=== PATIENT | female | born 1960 | race Caucasian/White ===

== ENCOUNTER → 2019-05-04 11:05 | Outpatient (CLI) | payer OTHER, SELFPAY ==
--- NOTE | ~2019-05-04 | XR_ITS ---
XR foot RT min 3V DATE: 05/04/2019 11:20 INDICATION: Right foot fracture; initial encounter TECHNIQUE: 4 views COMPARISON: None FINDINGS: Status post bunionectomy. There is a linear oblique fracture through the mid to distal shaft of the fifth metatarsal bone, term inating at the lateral neck distally, with approximately one cortical width medial displacement. This appears quite recent, without evidence of any new bone formation yet. No other recent fracture or dislocation. No periosteal reaction or bone destruction. Mild plantar and posterior calcaneal enthesopathy. IMPRESSION: Mid to distal fifth metatarsal shaft recent fracture Reviewed, dictated and finalized at location B. PRODUCTION COOK
== END ==
PROVIDERS: PCP Family Medicine; Visit Provider Family Medicine
DX: S92.351A Displaced fracture of fifth metatarsal bone, right foot, initial encounter for closed fracture (principal); X58.XXXA Exposure to other specified factors, initial encounter
CPT/HCPCS: 73630

== ENCOUNTER → 2019-05-18 09:21 | Outpatient (CLI) | payer OTHER, SELFPAY ==
--- NOTE | ~2019-05-18 | XR_ITS ---
EXAMINATION: XR foot RT min 3V DATE: 05/18/2019 09:33 INDICATION: Displaced fracture of fifth metatarsal bone. TECHNIQUE: 4 views of right foot were obtained. COMPARISON: Right foot radiographs 05/04/2019 FINDINGS: There are changes of bunionectomy with single screw in first metatarsal. There is an obliqu e fracture of diaphysis and neck of fifth metatarsal. The distal fracture fragment demonstrates 2 mm dorsomedial displacement. There is no visible callus. There is mild osteoarthritis of first metatarso phalangeal joint and talonavicular joint. There are enthesophytes at the posterior and plantar aspect s of calcaneal tuberosity. IMPRESSION: 1. Unchanged oblique fracture of fifth metatarsal. Reviewed, dictated and finalized at location A. NICIAN HELPER INSTRUMENT
== END ==
PROVIDERS: PCP Family Medicine; Visit Provider Family Medicine
DX: S92.353D Displaced fracture of fifth metatarsal bone, unspecified foot, subsequent encounter for fracture with routine healing (principal); X58.XXXD Exposure to other specified factors, subsequent encounter
CPT/HCPCS: 73630

== ENCOUNTER → 2019-06-08 10:16 | Outpatient (CLI) | payer OTHER, SELFPAY ==
--- NOTE | ~2019-06-08 | XR_ITS ---
XR foot RT min 3V 06/08/2019 10:30 Indication: Displaced fracture fifth metatarsal Procedure: 4 views right foot Comparison: Comparison to multiple prior studies sequentially, with oldest reviewed study dated 2019 Findings: There is a healing oblique fracture of the fifth metatarsal with evidence for developing ca llus formation. The fracture margins are less distinct than on prior examination. No significant sylvester ge to alignment. There are changes of right first metatarsal bunionectomy. There are degenerative shaquille caneal enthesophytes. Mild osteoarthritis first metatarsal phalangeal joint. Impression: 1: Stable alignment of healing oblique right fifth metatarsal fracture. Reviewed, dictated and finalized at location A. Impression: 1: Stable alignment of healing oblique right fifth metatarsal fracture.
== END ==
PROVIDERS: PCP Family Medicine; Visit Provider Family Medicine
DX: S92.353D Displaced fracture of fifth metatarsal bone, unspecified foot, subsequent encounter for fracture with routine healing (principal); X58.XXXD Exposure to other specified factors, subsequent encounter
CPT/HCPCS: 73630

== ENCOUNTER → 2019-06-22 10:51 | Outpatient (CLI) | payer OTHER, SELFPAY ==
--- NOTE | ~2019-06-22 | XR_ITS ---
EXAMINATION: XR foot RT min 3V DATE: 06/22/2019 11:00 INDICATION: Displaced fracture of fifth metatarsal bone of right foot. TECHNIQUE: 4 views of right foot were obtained. COMPARISON: Right foot radiographs 06/08/2019 FINDINGS: There are changes of bunionectomy with single screw in first metatarsal. There is an extra articular oblique fracture of diaphysis and neck of fifth metatarsal. The distal fracture fragment de monstrates 2 mm dorsomedial displacement without change. Callus formation is noted. There is mild ost eoarthritis of first metatarsophalangeal joint. There are enthesophytes at the posterior and plantar aspects of calcaneal tuberosity. IMPRESSION: 1. Healing oblique fracture of fifth metatarsal. Reviewed, dictated and finalized at location A.
== END ==
PROVIDERS: PCP Family Medicine; Visit Provider Family Medicine
DX: S92.353D Displaced fracture of fifth metatarsal bone, unspecified foot, subsequent encounter for fracture with routine healing (principal); X58.XXXD Exposure to other specified factors, subsequent encounter
CPT/HCPCS: 73630

== ENCOUNTER 2019-07-16 09:43 | Outpatient (CLI) | payer OTHER, SELFPAY ==
--- NOTE | ~2019-07-16 | XR_ITS ---
XR foot RT min 3V DATE: 07/16/2019 09:58 INDICATION: Follow-up right foot fracture TECHNIQUE: 4 views COMPARISON: 06/22/2019 right foot FINDINGS: There is advanced healing with bony bridging at the linear oblique fracture of the fifth me tatarsal shaft, without interval change in position or alignment since 06/22/2019. Status post bunionectomy. Mild osteoarthritis at the first metatarsophalangeal joint. No interval fracture, dislocation, periosteal reaction or bone destruction. Plantar and posterior calcaneal enthesopathy. IMPRESSION: Advanced healing of fifth metatarsal shaft fracture Status post bunionectomy Reviewed, dictated and finalized at location A.
== END 2019-07-16 09:44 | disposition home or self-care (01) ==
LOC: ANHIMG 09:49
PROVIDERS: PCP Family Medicine; Visit Provider Physician Assistant Medical
DX: S92.901D Unspecified fracture of right foot, subsequent encounter for fracture with routine healing (principal); Z98.890 Other specified postprocedural states
CPT/HCPCS: 73630

== ENCOUNTER → 2020-12-13 11:37 | Outpatient (CLI) | payer OTHER, SELFPAY ==
--- NOTE | ~2020-12-13 | XR_ITS ---
XR shoulder LT min 2V DATE: 12/13/2020 11:49 INDICATION: Left shoulder pain. No injury. TECHNIQUE: 4 views COMPARISON: None FINDINGS: No fracture or dislocation, periosteal reaction or bone destruction or abnormal soft tissue calcification. IMPRESSION: No significant abnormality Reviewed, dictated and finalized at location B. IMPRESSION: No significant abnormality
== END ==
PROVIDERS: PCP Physician Assistant Medical; Visit Provider Physician Assistant Medical
DX: M25.512 Pain in left shoulder (principal)
CPT/HCPCS: 73030

== ENCOUNTER → 2021-03-20 08:35 | Outpatient (CLI) | payer OTHER, SELFPAY ==
--- NOTE | ~2021-03-20 | MR_ITS ---
EXAMINATION: MR shoulder LT wo con DATE: 03/20/2021 09:12 INDICATION: Left shoulder pain TECHNIQUE: Magnetic resonance imaging (MRI) of the left shoulder was performed without intravenous co ntrast. Sequences included axial PD-weighted FS FSE, coronal oblique PD-weighted FS FSE, coronal obli que T2-weighted FS FSE, sagittal PD-weighted FS FSE, and sagittal T1-weighted SE. COMPARISON: Left shoulder radiographs dated 12/13/2020 FINDINGS: Coracoacromial arch: The acromion undersurface is curved in morphology (type II). The coracoacromial ligament is normal. M ild acromioclavicular osteoarthritis. Rotator cuff: Moderate supraspinatus and mild infraspinatus and subscapularis tendinopathy without discrete tear. T he teres minor tendon is normal. Normal rotator cuff muscle bulk and signal. Biceps tendon, glenoid labrum and glenohumeral cartilage: Long head of the biceps tendon is normal. There is a small superior, anterior to posterior tear of th e glenoid labrum (SLAP tear) with mild linear increased signal extending peripherally into the substa nce of the 12:00 position of the superior glenoid labrum. Mild partial-thickness cartilage loss along the posterior superior glenoid. Along the superomedial aspect of the humeral head. Fluid: Small glenohumeral joint effusion with proportional extension of a small amount of fluid along the lo ng head biceps tendon sheath. No loose osteochondral bodies. Very small amount of fluid in the subacr omial/subdeltoid bursa consistent with minimal bursitis. Bones: Normal marrow signal with no edema, fracture or abnormal marrow replacing process. IMPRESSION: 1. Moderate supraspinatus and mild infraspinatus and subscapularis tendinopathy without discrete tear . 2. Mild left glenohumeral osteoarthritis with small SLAP tear at the 12:00 position of the glenoid la ty. 3. Small left glenohumeral joint effusion. 4. Mild acromion clavicular osteoarthritis with minimal underlying subacromial/subdeltoid bursitis. Reviewed, dictated and finalized at location B. F OF PLANNING IMPRESSION: 1. Moderate supraspinatus and mild infraspinatus and subscapularis tendinopathy without discrete tear. 2. Mild left glenohumeral osteoarthritis with small SLAP tear at the 12:00 posi tion of the glenoid labrum. 3. Small left glenohumeral joint effusion. 4. Mild acromion clavicular osteoarthritis with minimal underlying subacromial/ subdeltoid bursitis.
== END ==
PROVIDERS: Visit Provider Physician Assistant Medical
DX: M19.012 Primary osteoarthritis, left shoulder (principal); M25.462 Effusion, left knee
CPT/HCPCS: 73221

== ENCOUNTER 2021-07-25 10:53 | Outpatient (CLI) | payer OTHER, SELFPAY ==
--- NOTE | 2021-07-25 11:00 | ECG_ITS ---
Measurements Intervals [place] Rate: 75 P: 46 SD: 158 QRS: 26 QRSD: 97 T: 25 QT: 369 QTc: 413 Interpretive Statements SINUS RHYTHM INCOMPLETE RIGHT BUNDLE BRANCH BLOCK BASELINE ARTIFACT- I, II, III, AVR, AVL, AVF BORDERLINE ECG Electronically Signed On 07-25-2021 11:32:23 CDT by Myron Aguilar D.O.
== END 2021-07-25 10:54 | disposition home or self-care (01) ==
LOC: ANHSURGERY 10:58
PROVIDERS: PCP Family Medicine; Visit Provider Orthopaedic Surgery
DX: R73.03 Prediabetes (principal); Z01.818 Encounter for other preprocedural examination; I45.10 Unspecified right bundle-branch block
CPT/HCPCS: 93005

== ENCOUNTER 2021-07-28 00:36 | Day surgery (SDC) | payer OTHER, SELFPAY ==
[2021-07-24 14:41] VITALS: BMI 35.6
--- NOTE | 2021-07-24 15:18 | PC.NURSE ---
Report to the Outpatient Waiting Room, entrance under the green pavilion located off [facility], at time _8:30AM on date __07/28/21 . OR Time: __10:30AM . IF YOUR SURGERY TIME IS ADJUSTED WE WILL CONTACT YOU ON 07/27/21 AFTERNOON - You and your visitor will be asked a series of questions to screen for COVID 19 for your protection. - Only one visitor is allowed at this time. - The patient visitor is requested to leave or wait in car when not with patient. - A mask is required within the hospital. Patients may have clear liquids (water, carbonated beverages, clear teas, apple juice) until 3 hours prior to surgery with a maximum of 20 ounces. - No food from midnight until time of surgery. YOU MAY HAVE CLEAR LIQUIDS UNTIL 7:30 AM ON THE MORNING OF SURGERY. - Take the following medications with a SIP of water the morning of surgery: _BUPROPRION, ALBUTEROL INHALER, TOPICAL EXCEMA CREAM (AVOID LT ARM) Medications to discontinue per physician ___NONE--DO NOT TAKE INJECTION OR METFORMIN THE MORNING OF SURGERY_ Please no make-up, nail taiwanese, hairspray, perfume, deodorant, or body powder the day of surgery. No jewelry (including any body piercings) or valuables the day of surgery, leave them at home. Please take a shower or bath the night before, or the morning of, surgery with an antibacterial soap. Wear comfortable, loose fitting clothing. - Jewelry must be removed prior to entering the operating room. Rings and piercings that are not removed may be cut off. - The hospital will not accept responsibility for valuables. - Please leave all valuables, including medications, at home the day of surgery. If you are going home after surgery, a licensed tour driver must drive you home. - NO public transportation without another adult. - We recommend that an adult stay with you for 24 hours following discharge. - We also recommend that you do not drive, make important decision, drink alcoholic beverages, or take any drugs that were not prescribed by your health care provider for at least 24 hours after your discharge time. Follow any additional instructions given to you from your surgeon. ATTENTION If you or anyone in your household have experienced Covid symptoms in the past week, please notify your surgeon or the nurse liaison at the phone number below for possible testing. Telephone instructions given to _KTY and asked if any additional questions and then verbalized understanding. Patient advised to call surgeon office or pre surgery nurse liaison [phone] if any additional questions.
[2021-07-28] VITALS (9 sets, daily range): BP systolic 99–134; BP diastolic 50–80; PULSE 73–98; RESP 10–16; TEMP 36.1–36.2; O2SAT 94–99
--- NOTE | 2021-07-28 07:04 | WPDHPUPDATE1 ---
History and Physical Update Update Date/Time: 07/28/21 07:04 History and Physical has been reviewed, including an updated exam of the patient. There are NO changes in the patient's condition. Risks, benefits, and alternatives have been discussed and questions answered. Patient agrees to proceed with procedure.
[2021-07-28] MEDS: ACETAMINOPHEN 500 MG TABLET 1000 MG PO (08:52)
--- NOTE | 2021-07-28 09:01 | WPDANESEPPF ---
Anes - Initial Pre Proc Eval Procedure: Operation Date: 07/28/21 10:30 Proposed Procedures p Left Arthroscopic Subacromial Decompression, Proceed as Indicated - Danny Lamar MD Date/Time: 07/28/21 09:01 Surgeon: Danny Lamar MD Pre Op Diagnosis: Rot Tear Tendinopathy Left Shoulder Patient Data Age: 60 Gender: F Height: 1.64 m Weight: 92.5 kg Allergies Allergy/AdvReac Type Severity Reaction Status Date / Time No Known Allergies Allergy Verified 07/28/21 08:53 Home Medications Medication Instructions Recorded Confirmed Type albuterol sulfate 90 mcg/actuation 2 puff INHALATION Q4H PRN #8.5 g 05/19/21 07/28/21 Rx aerosol inhaler bupropion HCl 300 mg 24 hr tablet, 300 mg PO QAM #90 tablet 06/22/21 07/28/21 Rx extended release metformin 500 mg tablet 500 mg PO BIDWMEAL #180 tablet 06/22/21 07/28/21 Rx liraglutide (weight loss) [Saxenda] See Rx Instructions .ROUTE .COMPLEX 07/24/21 07/28/21 History prednicarbate 1 applic TOPICAL BID 07/24/21 07/28/21 History trazodone 100 mg PO HS 07/24/21 07/28/21 History Patient hx anesthesia problems: post op nausea/vomiting Family hx anesthesia problems: none Results Review: All pre-operative results and documents have been reviewed as part of the pre-operative evaluation. PMFSH Past Medical History Medical History Arthritis Asthma Depressive disorder, not elsewhere classified Obesity (BMI 30.0-34.9) RBBB Family History Family History Sibling Cerebrovascular accident Family history of diabetes mellitus in first degree relative Family history of heart disease in male family member before age 55 Family history of elevated blood lipids Family history of cardiovascular disease Family history of coronary artery disease Mother Family history of diabetes mellitus in first degree relative Family history of heart disease in male family member before age 55 Diabetes mellitus, Onset Age: 56 Family history of cardiovascular disease, Onset Age: 56 Family history of coronary artery disease, Onset Age: 56 Father Family history of heart disease in male family member before age 55 Diabetes mellitus, Onset Age: 79 Family history of cardiovascular disease, Onset Age: 79 Family history of coronary artery disease, Onset Age: 79 Grandparent Family history of cardiovascular disease Other Family history of osteoporosis Hypertension Social History Social History Smoking end date: 03/18/94 Alcohol intake: never Substance use: never Substance use type: does not use Living arrangements: with family Spiritual care concerns: No Anes - Eval Final PreProcedure Day of Procedure 07/28/21 09:01 Patient weight: obese Heart: regular rate and rhythm Lungs: clear to auscultation Airway: Mallampati scale class II Neurological: alert and oriented Last oral intake: >/= 8 hours ASA classification: III Emergent: no Anesthetic plan: proceed Anesthesia type and monitoring: general ETT and standard monitoring Results Review: All pre-operative results and documents have been reviewed as part of the pre-operative evaluation. Informed Consent: The patient's anesthetic plan and its attendant risks and benefits were discussed with the patient/family/POA. Questions were solicited and answers provided to the satisfaction of the patient/family/POA.
[2021-07-28] MEDS: KETOROLAC 15 MG/ML VIAL (*BKC) IV PUSH (09:04)
[2021-07-28] MEDS: LACTATED RINGERS 1,000 ML 30 ML IV CONT ×2 (09:05→11:46)
[2021-07-28] MEDS: SCOPOLAMINE 1.5 MG PATCH TRANSDERM (09:08)
[2021-07-28 09:09] LABS: Glucose Point of Care 114 mg/dl (65-105)
[2021-07-28] MEDS: ceFAZolin 2 GM/D5W 50 ML 2 GM/50 ML BAG IVPB (09:36)
--- NOTE | 2021-07-28 09:38 | WPDANESPNB ---
Anes - Peripheral Nerve Block Date/Time: 07/28/21 09:38 I have discussed with the patient/family/POA the placement of a peripheral nerve block for post-operative pain management, including associated risks, benefits, complications, and side effects. Alternative methods of post-operative analgesia were detailed. Questions were solicited and answers provided to the satisfaction of the patient/family/POA. Time-Out: A pre-procedural Time-Out was completed immediately before starting the procedure and confirmed: Patient Identification, Site, Procedure, Patient Position and the Availability of Requisite Equipment. Clinical Indications: Acute post-operative pain management requested by the operative surgeon. Nerve Block Insertion Note Anes-nerve block: interscalene left Patient position: other (Sitting) Skin prep: chlorhexidine Needle: 22 gauge, stimulating, insulated echogenic needle. Needle length: 50 mm Technique: nerve stimulation lost at (mA) (0.3) Technique comment: mid2mg [id number] Injectate: bupivacaine 0.5% with epi 5 mcg/ml (30 ml no epi) Observations: tolerated well Complications: none Procedure start time:: 926 Procedure end time:: 933
[2021-07-28] MEDS: EPINEPHrine HCL INJ 1 MG/ML AMPUL IRRIGATION (10:52)
[2021-07-28 11:55] LABS: Glucose Point of Care 110 mg/dl (65-105)
--- NOTE | 2021-07-28 16:48 | W.PM.PROC2 ---
Procedure Note - Detailed Date of Procedure 07/28/21 Pre-op Diagnosis Left shoulder partial thickness rotator cuff tear Post-op Diagnosis Other (1. Left shoulder partial thickness rotator cuff tear 2. Degenerative SLAP tear and humeral chondral defect.) Procedure Performed Left shoulder 1. Arthroscopic rotator cuff repair 2. Arthroscopic subacromial decompression 3. Arthroscopic humeral chondroplasty and labral debridement. Surgeon Danny Lamar MD Anesthesia General and Regional ( interscalene block) Findings Low-grade partial-thickness tear of the subacromial articular side supraspinatus. Tissue quality was quite reasonable. The bursal side showed mild fraying as well. Evidence of subacromial impingement. Overall the tissue quality was quite good. It was elected to repair the rotator cuff with the bio inductive implant and 2 bone anchors and 4 tendon anchors. The humeral articular cartilage had a large area of damage and delamination. This was irregular and fairly wide. It was not amenable to chondroplasty. The glenoid had minimal changes. There was a degenerative SLAP tear with some fraying around the posterior superior labrum, treated with simple debridement. Description of Procedure Preoperative antibiotics were given. An interscalene block was administered in the preoperative area. The patient was bought brought to the operating room. A general anesthetic was administered. The patient was carefully positioned in the beach chair position. The head and neck were carefully positioned. The non operative extremity was also carefully positioned. The shoulder was prepped and draped in the usual sterile fashion. Examination was performed. Standard posterior and anterior arthroscopic portals were established. Inflow achieved with the arthroscopic pump using saline and epinephrine. The glenohumeral joint was carefully inspected. Debridement of the chondral defect on the humerus as well as debridement of the superior labrum was performed. The subscapularis was intact. The articular supraspinatus had low-grade tearing. The infraspinatus and posterior cuff were normal. There was a mild synovitis. No significant contracture. Attention was turned to the subacromial space. A complete bursectomy was performed. The rotator cuff had low-grade tearing on the bursal side as well. It was lightly debrided. A modest acromioplasty was performed. The tear configuration was carefully assessed. At this point the tissue was deemed of high enough quality that repair could be accomplished with the bio inductive implant. This was placed with the arthroscopic delivery system. SATURNINO anchors were placed to secure the medial aspect of the graft. The lateral graft was secured to bone with peek bone anchors. The arthroscopic instruments were removed. The wounds were closed with 3-0 Monocryl subcuticular suture and steri strips. There were no complications. A sling was applied and the patient brought to the recovery room. Implants Regeneten Bio-inductive implant, Gonzalez [employer] Nephew medium size. Two peek bone anchors. Four SATURNINO tendon anchors. Estimated Blood Loss -20.0 Pathology None sent Complications No immediate complications Condition Stable Disposition PACU [facility] Billing Surgery - Charge Forward: Surgery Billing
== END 2021-07-28 14:20 | disposition home or self-care (01) ==
PROVIDERS: PCP Family Medicine; Visit Provider Orthopaedic Surgery
PROC: (CPT 29805; principal; 2021-07-28 10:30)
DX: M75.102 Unspecified rotator cuff tear or rupture of left shoulder, not specified as traumatic (principal); M75.82 Other shoulder lesions, left shoulder; M65.812 Other synovitis and tenosynovitis, left shoulder; G89.18 Other acute postprocedural pain; J45.909 Unspecified asthma, uncomplicated; I45.10 Unspecified right bundle-branch block; F32.9 Major depressive disorder, single episode, unspecified; E66.9 Obesity, unspecified; Z68.34 Body mass index [BMI] 34.0-34.9, adult; Z79.51 Long term (current) use of inhaled steroids; Z79.84 Long term (current) use of oral hypoglycemic drugs
CPT/HCPCS: 29827; 29826; 64415; 82948; 93005; A4565; A9270; C1713; J0171; J0690; J1885; J2250; J2405; J2704; J3010; J7120

== ENCOUNTER 2022-01-24 11:12 | Outpatient (CLI) | payer OTHER, SELFPAY ==
--- NOTE | ~2022-01-24 | MM_ITS ---
EXAMINATION: MM screening charli BI w randolph HISTORY: Screening mammogram TECHNIQUE: Craniocaudal and mediolateral oblique 3-D tomosynthesis images were obtained and synthetic 2-D images were generated. CAD analysis was submitted and interpreted. COMPARISON: 11/04/2017, 08/02/2015 bilateral screening mammogram examinations BREAST PARENCHYMAL COMPOSITION: The breasts are almost entirely fatty. FINDINGS: There is no evidence of suspicious mass, calcification, or architectural distortion to sugg est malignancy in either breast. There has been no suspicious interval change. IMPRESSION: 1. No mammographic evidence of malignancy. 2. Recommend routine screening mammography in one year. BI-RADS Category 1: Negative Reviewed, dictated and finalized at location A. ESS MOLD TECHNICIAN
== END 2022-01-24 11:13 | disposition home or self-care (01) ==
PROVIDERS: PCP Family Medicine; Visit Provider Family Medicine
DX: Z12.31 Encounter for screening mammogram for malignant neoplasm of breast (principal)
CPT/HCPCS: 77063; 77067

== ENCOUNTER 2023-01-01 01:47 | Day surgery (SDC) | payer OTHER, SELFPAY ==
[2022-12-20 11:06] VITALS: BMI 31.0
[2023-01-01 07:35] VITALS: BP 140/74; PULSE 84; RESP 16; TEMP 36; O2SAT 99; BMI 30.8
[2023-01-01] MEDS: LACTATED RINGERS 1,000 ML 150 ML IV CONT (07:55)
[2023-01-01 07:56] LABS: Glucose Point of Care 129 mg/dl (65-105)
--- NOTE | 2023-01-01 08:27 | WPDANESEPPF ---
Anes - Initial Pre Proc Eval Procedure: Operation Date: 01/01/23 09:00 Proposed Procedures p Screening Colonoscopy - Bob Snow MD Date/Time: 01/01/23 08:27 Surgeon: Bob Snow MD Pre Op Diagnosis: neoplasm screening Patient Data Age: 62 Gender: F Height: 1.63 m Weight: 81.4 kg Last Vital Signs Temp 96.8 F L 01/01/23 07:35 Pulse 84 01/01/23 07:35 Resp 16 01/01/23 07:35 BP 140/74 01/01/23 07:35 Pulse Ox 99 01/01/23 07:35 O2 Del Method Room Air 01/01/23 07:35 Allergies Allergy/AdvReac Type Severity Reaction Status Date / Time No Known Allergies Allergy Verified 01/01/23 07:42 Home Medications Medication Instructions Recorded Confirmed Type albuterol sulfate 90 mcg/actuation 2 puff inhalation Q4H PRN 05/19/21 01/01/23 Rx aerosol inhaler (ProAir HFA) shortness of breath or wheezing #8.5 grams liraglutide (weight loss) 3 mg/0.5 3 mg (0.5 mL) subcut DAILY #15 mL 10/19/22 01/01/23 Rx mL (18 mg/3 mL) subcut pen injector (Saxenda) bupropion HCl 300 mg 24 hr tablet, 300 mg PO QAM #90 tabs 11/14/22 01/01/23 Rx extended release (Wellbutrin XL) metformin 500 mg tablet 500 mg PO BIDWMEAL #180 tabs 12/17/22 01/01/23 Rx trazodone 100 mg tablet 100 mg PO QHS #90 tabs 12/18/22 01/01/23 Rx diazepam 5 mg tablet 5 mg PO TID PRN muscle spasm #30 12/20/22 01/01/23 Rx tabs Laboratory Tests 01/01/23 07:53 POC Capillary Glucose 129 H mg/dl (65-105) Patient hx anesthesia problems: none Family hx anesthesia problems: none Results Review: All pre-operative results and documents have been reviewed as part of the pre-operative evaluation. [facility] Past Medical History Medical History Arthritis Asthma Depressive disorder, not elsewhere classified Obesity (BMI 30.0-34.9) RBBB Surgical History Surgical History H/O vaginal hysterectomy Status post arthroscopy of left shoulder Family History Family History Sibling Cerebrovascular accident Family history of diabetes mellitus in first degree relative Family history of heart disease in male family member before age 55 Family history of elevated blood lipids Family history of cardiovascular disease Family history of coronary artery disease Mother Family history of diabetes mellitus in first degree relative Family history of heart disease in male family member before age 55 Diabetes mellitus, Onset Age: 56 Family history of cardiovascular disease, Onset Age: 56 Family history of coronary artery disease, Onset Age: 56 Father Family history of heart disease in male family member before age 55 Diabetes mellitus, Onset Age: 79 Family history of cardiovascular disease, Onset Age: 79 Family history of coronary artery disease, Onset Age: 79 Grandparent Family history of cardiovascular disease Other Family history of osteoporosis Hypertension Social History Social History (Updated 10/26/22 @ 11:39 by Jess Brito MA) Smoking packs per day: 1 Smoking cigarettes per day: 20.0 Years smoked: 10 Smoking pack-years: 10.00 Smoking status: Former smoker Tobacco type: cigarettes Smoking end date: 03/18/94 Alcohol intake: current Drinks per week: 1 Substance use: current Substance use type: does not use Lack of Transportation: No Lack of Food: Never True Current Housing: I Have Housing Concerned About Future Housing: No Difficulty Paying Gas/Electric Bills: No Difficulty Paying for Meds: No Currently Unemployed: No Education: High School Diploma/GED Difficulty w/ Childcare or Family Care: No Living arrangements: with family Gender identity (if verbalized by the patient): Female Sexual Orientation (if Verbalized by the Patient): Straight or He
--- NOTE | 2023-01-01 08:31 | PM.HPGS ---
History of Present Illness History of Present Illness Consent: Risks, benefits, and alternatives have been discussed and questions answered. Patient agrees to proceed with procedure. Chief complaint: history of colon polyp Narrative: Tiana Singer is a 62 year old female presents for screening colonoscopy. Patient has current weight appetite bowel movements are normal. Patient denies abdominal pain. She has had no bleeding. Family history noncontributory. Previous colonoscopy in 2018 revealed an adenomatous colon polyp. Review of Systems Review of Systems: Review of systems noncontributory. [facility] Past Medical History Medical History Arthritis Asthma Depressive disorder, not elsewhere classified Obesity (BMI 30.0-34.9) RBBB Surgical History Surgical History H/O vaginal hysterectomy Status post arthroscopy of left shoulder Family History Family History Sibling Cerebrovascular accident Family history of diabetes mellitus in first degree relative Family history of heart disease in male family member before age 55 Family history of elevated blood lipids Family history of cardiovascular disease Family history of coronary artery disease Mother Family history of diabetes mellitus in first degree relative Family history of heart disease in male family member before age 55 Diabetes mellitus, Onset Age: 56 Family history of cardiovascular disease, Onset Age: 56 Family history of coronary artery disease, Onset Age: 56 Father Family history of heart disease in male family member before age 55 Diabetes mellitus, Onset Age: 79 Family history of cardiovascular disease, Onset Age: 79 Family history of coronary artery disease, Onset Age: 79 Grandparent Family history of cardiovascular disease Other Family history of osteoporosis Hypertension Social History Social History (Updated 10/26/22 @ 11:39 by Jess Brito MA) Smoking packs per day: 1 Smoking cigarettes per day: 20.0 Years smoked: 10 Smoking pack-years: 10.00 Smoking status: Former smoker Tobacco type: cigarettes Smoking end date: 03/18/94 Alcohol intake: current Drinks per week: 1 Substance use: current Substance use type: does not use Lack of Transportation: No Lack of Food: Never True Current Housing: I Have Housing Concerned About Future Housing: No Difficulty Paying Gas/Electric Bills: No Difficulty Paying for Meds: No Currently Unemployed: No Education: High School Diploma/GED Difficulty w/ Childcare or Family Care: No Living arrangements: with family Gender identity (if verbalized by the patient): Female Sexual Orientation (if Verbalized by the Patient): Straight or Heterosexual Spiritual care concerns: No Meds Home Medications and Allergies Home Medications Medication Instructions Recorded Confirmed Type albuterol sulfate 90 mcg/actuation 2 puff inhalation Q4H PRN 05/19/21 01/01/23 Rx aerosol inhaler (ProAir HFA) shortness of breath or wheezing #8.5 grams liraglutide (weight loss) 3 mg/0.5 3 mg (0.5 mL) subcut DAILY #15 mL 10/19/22 01/01/23 Rx mL (18 mg/3 mL) subcut pen injector (Saxenda) bupropion HCl 300 mg 24 hr tablet, 300 mg PO QAM #90 tabs 11/14/22 01/01/23 Rx extended release (Wellbutrin XL) metformin 500 mg tablet 500 mg PO BIDWMEAL #180 tabs 12/17/22 01/01/23 Rx trazodone 100 mg tablet 100 mg PO QHS #90 tabs 12/18/22 01/01/23 Rx diazepam 5 mg tablet 5 mg PO TID PRN muscle spasm #30 12/20/22 01/01/23 Rx tabs Allergies Allergy/AdvReac Type Severity Reaction Status Date / Time No Known Allergies Allergy Verified 01/01/23 07:42 Vital Signs Vital Signs - 24 hr 01/01/23 07:35 Temperature 96.8 F L Pulse Rate 84 Respirator
[2023-01-01 09:36] VITALS: BP 105/69; PULSE 71; RESP 20; O2SAT 98
[2023-01-01 09:46] VITALS: BP 120/68; PULSE 70; RESP 19; O2SAT 100
[2023-01-01 09:56] VITALS: BP 120/68; PULSE 69; RESP 14; O2SAT 100
== END 2023-01-01 10:06 | disposition home or self-care (01) ==
PROVIDERS: PCP Family Medicine; Visit Provider Internal Medicine Gastroenterology
PROC: 0DJD8ZZ Inspection of Lower Intestinal Tract, Via Natural or Artificial Opening Endoscopic (ICD-10-PCS; CPT 45378; principal; 2023-01-01 09:00)
DX: Z12.11 Encounter for screening for malignant neoplasm of colon (principal); K64.8 Other hemorrhoids; K57.30 Diverticulosis of large intestine without perforation or abscess without bleeding; Z86.010 Personal history of colon polyps; J45.909 Unspecified asthma, uncomplicated; F32.A Depression, unspecified; Z87.891 Personal history of nicotine dependence; Z79.51 Long term (current) use of inhaled steroids; Z79.85 Long-term (current) use of injectable non-insulin antidiabetic drugs; Z79.84 Long term (current) use of oral hypoglycemic drugs
CPT/HCPCS: 45378; 82948; J2704; J7120

== ENCOUNTER 2023-02-28 16:32 | Inpatient (IN) | payer OTHER, SELFPAY ==
[2023-02-28] VITALS (7 sets, daily range): BP systolic 98–124; BP diastolic 40–95; PULSE 78–102; RESP 17–20; TEMP 36.6–38.1; O2SAT 97–100; BMI 33.8
--- NOTE | ~2023-02-28 | CT_ITS ---
EXAMINATION: CT abdomen pelvis wo con DATE: 02/28/2023 19:02 INDICATION: Left flank pain and nephrolithiasis TECHNIQUE: Computed tomography (CT) of the abdomen and pelvis was performed without intravenous contr ast. Automated exposure control and iterative reconstruction technique were employed. The dose-length product was 365.16 mGy-cm. COMPARISON: 04/06/2018 FINDINGS: Mild curvilinear discoid atelectasis at the left lung base. Heart size is normal. No pericardial or p leural effusion. Splenic calcification consistent with old granulomatous disease. Liver, gallbladder, pancreas and bilateral adrenal glands are normal. Bilateral nephrolithiasis with 6 stones in the rig ht kidney measuring up to 3-4 mm and at least 10 stones in the left kidney including a 1.3 cm stone a t the ureteropelvic junction and a couple 8-9 mm stones at an upper pole calyx of the left kidney. Th e stone at the left ureteropelvic junction is at least partially obstructing with mild left hydroneph rosis and mild left perinephric stranding. No stones along the bilateral ureters or in the bladder. T here is moderate colonic diverticulosis with a sigmoid predominance. There is no adjacent inflammato ry change to suggest diverticulitis. Small bowel and appendix are normal. No free intraperitoneal ga s or fluid. No pathologically enlarged abdominal or pelvic lymphadenopathy. Thoracolumbar dextroscoli osis with moderate to severe left-sided predominant disc height loss at L2-L3. Otherwise mild lumbar and lower thoracic spondylosis.. IMPRESSION: 1. Bilateral nephrolithiasis with obstructing 1.3 cm stone at the left ureteropelvic junction with mi ld left hydronephrosis and perinephric stranding. Correlate with urinalysis to exclude associated uri nary tract infection. Reviewed, dictated and finalized at location A. ORING MAKER IMPRESSION: 1. Bilateral nephrolithiasis with obstructing 1.3 cm stone at the left ureterop elvic junction with mild left hydronephrosis and perinephric stranding. Correla te with urinalysis to exclude associated urinary tract infection.
--- NOTE | ~2023-02-28 | XR_ITS ---
EXAMINATION: XR retrograde pyelo w/stent LT DATE: 02/28/2023 22:30 INDICATION: Obstructing left-sided UPJ stone. TECHNIQUE: 4 fluoroscopic images of the abdomen and pelvis were obtained during procedure performed rk Mendoza. Radiologist was not present for the imaging or procedure. The amount of fluoroscopy ti me used during this procedure was 0.3 minutes. COMPARISON: None. FINDINGS: Again seen are large renal stones the region of the left ureteropelvic junction and at the upper pole the left kidney. Subsequent images demonstrate retrograde contrast injection into the left ureter wh ich extends beyond the UPJ stone. There is mild hydronephrosis at the lower pole of the left kidney. Final images demonstrate placement of a left internal ureteral stent extends into the left renal pelv is. There is a lucent filling defect within the renal pelvis which likely represents the stone previo usly at the ureteropelvic junction. Mild lumbar dextrocurvature. IMPRESSION: 1. Fluoroscopy utilized during placement of a left intrarenal stent which is in expected position. Se e procedure note for further detail. 2. Left nephrolithiasis. Reviewed, dictated and finalized at location A. S WIND INSTRUMENT MAKER IMPRESSION: 1. Fluoroscopy utilized during placement of a left intrarenal stent which is in expected position. See procedure note for further detail. 2. Left nephrolithiasis.
--- NOTE | ~2023-02-28 | XR_ITS ---
EXAMINATION: XR chest 1V DATE: 02/28/2023 20:10 INDICATION: Cough and fever TECHNIQUE: frontal view of the chest was obtained. COMPARISON: Chest radiograph dated 08/31/2017 FINDINGS: The lungs are clear with no focal airspace opacities, pulmonary edema, pleural effusion or pneumothor ax. The cardiomediastinal silhouette is normal. Focal lumbar levocurvature. IMPRESSION: 1. No acute cardiopulmonary disease. Reviewed, dictated and finalized at location A. K EXTRUDER OPERATOR
[2023-02-28 17:06] LABS: Basophils Percent Auto 0.3 % (0.2-1.2); Eosinophils Percent Auto 0.2 % (0-4.4); Hematocrit 41.6 % (37.0-47.0); Hemoglobin 13.9 g/dL (12.0-15.0); Immature Granulocyte Absolute 0.04 K/mm3 (0.00-0.031); Immature Granulocyte Percent A 0.3 % (0-0.5); Lymphocytes Absolute Auto 0.72 K/mm3 (0.9-3.2); Lymphocytes Percent Auto 5.9 % (18.3-44.2); Mean Corpuscular HGB Conc 33.4 g/dl (32-36); Mean Corpuscular Hemoglobin 30.8 pg (26-34); Mean Platelet Volume 10.5 fl (7.4-10.4); Monocytes Absolute Auto 0.9 K/mm3 (0.1-0.6); Monocytes Percent Auto 7.3 % (2.6-8.5); Neutrophils Absolute Auto 10.4 K/mm3 (1.3-6.7); Platelet Count Result 304 k/mm3 (150-375); Red Blood Count 4.52 M/mm3 (4.2-5.4); White Blood Count 12.1 K/mm3 (4.5-10.0)
[2023-02-28 17:20] LABS: Alanine Aminotransferase 16 U/L (6-35); Albumin Level 4.2 g/dL (3.5-5.1); Alkaline Phosphatase 63 U/L (38-126); Anion Gap 8 mmol/L (8-16); Aspartate Amino Transferase 22 U/L (14-36); Bilirubin,Total 0.8 mg/dL (0.2-1.3); Blood Urea Nitrogen 12 mg/dL (7-17); Calcium 9.3 mg/dL (8.4-10.2); Carbon Dioxide 24 mmol/L (22-30); Chloride 101 mmol/L (98-107); Estimated CRCL calculation 58 ml/min; Estimated Glomerular Filt Rate > 60; Glucose 164 mg/dL (65-110); Sodium 133 mmol/L (137-145)
[2023-02-28 18:30] LABS: Appearance Urine Cloudy (Clear); Color Urine Yellow (Yellow)
[2023-02-28 18:31] LABS: Glucose Urine UA Negative (Negative); Ketones Urine Trace mg/dL (Negative); Protein Urine 3+ mg/dL (Negative); Specific Grav Ur 1.025 (1.001-1.035)
[2023-02-28 18:32] LABS: Add Urine Microscopic? YES; Bilirubin Urine 1+ (Negative); Blood Urine 2+ (Negative); Leukocyte Esterase Ur 3+ LEU/UL (Negative); Nitrate Urine Negative (Negative); Urobilinogen Urine 0.2 mg/dL (<2.0)
[2023-02-28 18:33] LABS: Bacteria Urine 1+ /hpf; Squamous Epithelial Cell Urine Moderate /hpf (Few); WBC Urine 51-75 /hpf (0-3)
--- NOTE | 2023-02-28 18:50 | ECG_ITS ---
Measurements Intervals [place] Rate: 78 P: 48 TN: 168 QRS: 20 QRSD: 105 T: 34 QT: 377 QTc: 430 Interpretive Statements SINUS RHYTHM INCOMPLETE RIGHT BUNDLE BRANCH BLOCK [90+ ms QRS DURATION, TERMINAL R IN V1/V2, 40+ ms S IN I/aVL/V4/V5/V6] BORDERLINE ECG COMPARED TO ECG 07/25/2021 11:30:12 NO SIGNIFICANT CHANGES Electronically Signed On 03-01-2023 13:55:14 THRESHING MACHINE OPERATOR by Domenico Gongora M.D.
--- NOTE | 2023-02-28 18:52 | ED.FEMALEGU ---
HPI - Female Genitourinary General Chief complaint: Urogenital-Female Stated complaint: Kidney stone, fever Time Seen by Provider: 02/28/23 18:39 History of Present Illness HPI Narrative: 62-year-old female with a reported history of septic kidney stones requiring emergent stones reports for evaluation for left flank pain, left-sided abdominal pain and nausea for the past day and a half. Patient reports temperatures with a T-max of 102.1. She denies dysuria, hematuria, urinary frequency urgency, diarrhea. She does report a intermittent mild cough which she attributes to a residual cough from having a fluid few weeks ago. States she took Tylenol approximately 4 hours ago with improvement in her fever. Related Data Home Medications Medication Instructions Recorded Confirmed trazodone 100 mg tablet 200 mg PO HS 02/28/23 02/28/23 Allergies Allergy/AdvReac Type Severity Reaction Status Date / Time ceftriaxone [From Rocephin] Allergy Hives Verified 02/28/23 21:10 Review of Systems Review of Systems: CONSTITUTIONAL: Denies fever, chills, or sweats. EYES: Denies visual changes, redness, or discharge. ENT: Denies rhinorrhea, congestion, sore throat, or otalgia. CARDIOVASCULAR: Denies chest pain, palpitations, or edema. RESPIRATORY: Denies cough or dyspnea. GASTROINTESTINAL: See HPI GENITOURINARY: See HPI SKIN: Denies rash or itching. MUSCULOSKELETAL: see HPI. NEUROLOGIC: Denies headache, numbness, or weakness. PSYCHIATRIC: Denies anxiety or depression. [facility] Past Medical History Medical History Arthritis Asthma Depressive disorder, not elsewhere classified Obesity (BMI 30.0-34.9) [facility] Surgical History Surgical History H/O vaginal hysterectomy Status post arthroscopy of left shoulder Family History Family History Sibling Cerebrovascular accident Family history of diabetes mellitus in first degree relative Family history of heart disease in male family member before age 55 Family history of elevated blood lipids Family history of cardiovascular disease Family history of coronary artery disease Mother Family history of diabetes mellitus in first degree relative Family history of heart disease in male family member before age 55 Diabetes mellitus, Onset Age: 56 Family history of cardiovascular disease, Onset Age: 56 Family history of coronary artery disease, Onset Age: 56 Father Family history of heart disease in male family member before age 55 Diabetes mellitus, Onset Age: 79 Family history of cardiovascular disease, Onset Age: 79 Family history of coronary artery disease, Onset Age: 79 Grandparent Family history of cardiovascular disease Other Family history of osteoporosis Hypertension Social History Social History Smoking packs per day: 1 Smoking cigarettes per day: 20.0 Years smoked: 10 Smoking pack-years: 10.00 Smoking status: Former smoker Tobacco type: cigarettes Smoking end date: 03/18/94 Alcohol intake: current Drinks per week: 1 Substance use: never Substance use type: does not use Lack of Transportation: No Lack of Food: Never True Current Housing: I Have Housing Concerned About Future Housing: No Difficulty Paying Gas/Electric Bills: No Difficulty Paying for Meds: No Currently Unemployed: No Education: High School Diploma/GED Difficulty w/ Childcare or Family Care: No Living arrangements: with family Gender identity (if verbalized by the patient): Female Sexual Orientation (if Verbalized by the Patient): Straight or Heterosexual Spiritual care concerns: No Exam Narrative: GENERAL: Well-appearing, well-nourished, and in no acute distress. HEAD: Normocephalic, atr
--- NOTE | 2023-02-28 18:57 | PC.NURSE ---
pt taken for scans at this time
[2023-02-28] MEDS: MORPHINE SULFATE (*CRX) 4 MG/ML INJ IV PUSH ×2 (19:21→23:48)
[2023-02-28] MEDS: ONDANSETRON INJ 4 MG/2 ML VIAL IV PUSH (19:21)
[2023-02-28] MEDS: SODIUM CHLORIDE 0.9% IV 1,000 ML 999 ML IV CONT (19:22)
[2023-02-28 19:39] LABS: Lactic Acid Reflex 0.8 mmol/L (0.7-2.0); Lipase 29 U/L (23-300)
[2023-02-28 20:05] LABS: Influenza A QL RT-PCR Negative (Negative); Influenza B QL RT-PCR Negative (Negative); RSV RNA, RT-PCR Negative (Negative); SARS-CoV-2 RNA PCR Negative (Negative)
--- NOTE | 2023-02-28 21:09 | PC.NURSE ---
patient has hives above and below iv site. PA made aware
--- NOTE | 2023-02-28 21:15 | WPDANESEPP ---
Anes - Eval Pre Procedure Procedure: cysto L stent Date/Time: 02/28/23 21:15 Pre Op Diagnosis: Kidney stone, fever Patient Data Age: 62 Gender: F Height: 1.63 m Weight: 81.8 kg Last Vital Signs Temp 36.7 C 02/28/23 21:09 Pulse 78 02/28/23 19:31 Resp 20 02/28/23 19:31 BP 111/70 02/28/23 19:31 Pulse Ox 98 02/28/23 19:31 O2 Del Method Room Air 02/28/23 16:52 Allergies Allergy/AdvReac Type Severity Reaction Status Date / Time ceftriaxone [From Rocephin] Allergy Hives Verified 02/28/23 21:10 Home Medications Medication Instructions Recorded Confirmed Type albuterol sulfate 90 mcg/actuation 2 puff inhalation Q4H PRN 05/19/21 01/01/23 Rx aerosol inhaler (ProAir HFA) shortness of breath or wheezing #8.5 grams liraglutide (weight loss) 3 mg/0.5 3 mg (0.5 mL) subcut DAILY #15 mL 10/19/22 01/01/23 Rx mL (18 mg/3 mL) subcut pen injector (Saxenda) bupropion HCl 300 mg 24 hr tablet, 300 mg PO QAM #90 tabs 11/14/22 01/01/23 Rx extended release (Wellbutrin XL) metformin 500 mg tablet 500 mg PO BIDWMEAL #180 tabs 12/17/22 01/01/23 Rx diazepam 5 mg tablet 5 mg PO TID PRN muscle spasm #30 12/20/22 01/01/23 Rx tabs trazodone 100 mg tablet 100 mg PO BID #180 tabs 02/04/23 Rx amoxicillin 500 mg capsule 500 mg PO Q8H #21 caps 02/18/23 Rx Laboratory Tests 02/28/23 02/28/23 02/28/23 16:59 17:47 19:20 WBC 12.1 H K/mm3 (4.5-10.0) RBC 4.52 M/mm3 (4.2-5.4) Hgb 13.9 g/dL (12.0-15.0) Hct 41.6 % (37.0-47.0) MCV 92.0 fl (80-100) MCH 30.8 pg (26-34) MCHC 33.4 g/dl (32-36) RDW 12.0 % (11.5-14.5) Plt Count 304 k/mm3 (150-375) MPV 10.5 H fl (7.4-10.4) Immature Gran % (Auto) 0.3 % (0-0.5) Neut % (Auto) 86.0 H % (45.5-73.1) Lymph % (Auto) 5.9 L % (18.3-44.2) [place] % (Auto) 7.3 % (2.6-8.5) Eos % (Auto) 0.2 % (0-4.4) Baso % (Auto) 0.3 % (0.2-1.2) Lymph # (Auto) 0.72 L K/mm3 (0.9-3.2) [place] # (Auto) 0.9 H K/mm3 (0.1-0.6) Eos # (Auto) 0.0 K/mm3 (0-0.3) Baso # (Auto) 0.0 K/mm3 (0.0-0.1) Abs Immat Gran (auto) 0.04 H K/mm3 (0.00-0.031) Absolute Neuts (auto) 10.4 H K/mm3 (1.3-6.7) Absolute Nucleated RBC 0.0 K/mm3 (0.0-0.012) Nucleated RBC % 0.0 % (0.0-0.2) Sodium 133 L mmol/L (137-145) Potassium 4.0 mmol/L (3.4-5.0) Chloride 101 mmol/L (98-107) Carbon Dioxide 24 mmol/L (22-30) Anion Gap 8 mmol/L (8-16) BUN 12 mg/dL (7-17) Creatinine 0.90 mg/dL (0.7-1.0) Estim Creat Clear Calc 58 ml/min Estimated GFR > 60 (59 - ) Glucose 164 H mg/dL (65-110) Lactic Acid 0.8 mmol/L (0.7-2.0) Calcium 9.3 mg/dL (8.4-10.2) Total Bilirubin 0.8 mg/dL (0.2-1.3) AST 22 U/L (14-36) ALT 16 U/L (6-35) Alkaline Phosphatase 63 U/L (38-126) Total Protein 7.0 g/dL (6.3-8.2) Albumin 4.2 g/dL (3.5-5.1) Lipase 29 U/L (23-300) Urine Color Yellow (Yellow) Urine Appearance Cloudy H (Clear) Urine pH 6.0 (5.0-9.0) Ur Specific [place] 1.025 (1.001-1.035) Urine Protein 3+ H mg/dL (Negative) Urine Glucose (UA) Negative mg/dL (Negative) Urine Ketones Trace H mg/dL (Negative) Ur Blood (Man) 2+ H (Negative) Urine Nitrate Negative (Negative) Urine Bilirubin 1+ H (Negative) Urine Urobilinogen 0.2 mg/dL (<2.0) Leukocyte Esterase Rfl 3+ H FABY/UL (Negative) Urine RBC 3-5 H /hpf (0-2) Urine WBC 51-75 H /hpf (0-3) Ur Squamous Epith Cells Moderate H /hpf (Few) Urine
[2023-02-28] MEDS: diphenhydrAMINE HCl INJ 50 MG/ML VIAL 25 MG IV PUSH (21:24)
--- NOTE | 2023-02-28 21:46 | PC.NURSE ---
OR called for report. States they are ready for patient.
--- NOTE | 2023-02-28 21:58 | WPDURCON ---
Assessment and Plan Assessment and plan (1) Left ureteral stone: Code(s): N20.1 - Calculus of ureter Status: Acute (2) Right renal stone: Code(s): N20.0 - Calculus of kidney Status: Acute (3) Pyelonephritis: Code(s): N12 - Tubulo-interstitial nephritis, not specified as acute or chronic Status: Acute Plan She will be taken to the operating room emergently for left ureteral stent placement. She understands risks of bleeding, infection, damage to the urinary tract. She understands I will not be removing her stone. She will be admitted to the hospitalist postoperatively for broad-spectrum antibiotics. Transition to p.o. antibiotics once cultures return. Will need definitive stone management once acute situation resolves. Urology Consult Note HPI Date Seen: 02/28/23 Requesting Physician: Hospitalist and ER Primary Care Provider: Domenico Chen MD Consult Narrative Narrative: Tiana Singer is a 62 year old female history of stone disease. She has had prior stents secondary to urinary tract infections associated with stones. She has had prior stone procedures. She is not particularly or what she has had done. It has been over 5 years. She has had left flank pain since Saturday. She has had fevers at home as high as 102.5. She has noted nausea. She has noted chills. She has not noted blood in the urine. She presented to the ER. CT scan was done which showed a 13 mm left proximal ureteral stone with perinephric stranding and concern of infection. She looks to be in distress. She be taken to the operating room urgently for ureteral stent placement. She the admitted to the hospitalist postoperative broad-spectrum antibiotics Review of Systems Review of Systems: All systems reviewed & are unremarkable except as noted in HPI and below PMFSH Past Medical History Medical History Arthritis Asthma Depressive disorder, not elsewhere classified Obesity (BMI 30.0-34.9) RBBB Surgical History Surgical History H/O vaginal hysterectomy Status post arthroscopy of left shoulder Family History Family History Sibling Cerebrovascular accident Family history of diabetes mellitus in first degree relative Family history of heart disease in male family member before age 55 Family history of elevated blood lipids Family history of cardiovascular disease Family history of coronary artery disease Mother Family history of diabetes mellitus in first degree relative Family history of heart disease in male family member before age 55 Diabetes mellitus, Onset Age: 56 Family history of cardiovascular disease, Onset Age: 56 Family history of coronary artery disease, Onset Age: 56 Father Family history of heart disease in male family member before age 55 Diabetes mellitus, Onset Age: 79 Family history of cardiovascular disease, Onset Age: 79 Family history of coronary artery disease, Onset Age: 79 Grandparent Family history of cardiovascular disease Other Family history of osteoporosis Hypertension Social History Social History Smoking packs per day: 1 Smoking cigarettes per day: 20.0 Years smoked: 10 Smoking pack-years: 10.00 Smoking status: Former smoker Tobacco type: cigarettes Smoking end date: 03/18/94 Alcohol intake: current Drinks per week: 1 Substance use: current Substance use type: does not use Lack of Transportation: No Lack of Food: Never True Current Housing: I Have Housing Concerned About Future Housing: No Difficulty Paying Gas/Electric Bills: No Difficulty Paying for Meds: No Currently Unemployed: No Education: High School Diploma/GED Difficulty w/ Childcare or Family
--- NOTE | 2023-02-28 22:02 | WPDHPUPDATE1 ---
History and Physical Update Update Date/Time: 02/28/23 22:02 History and Physical has been reviewed, including an updated exam of the patient. There are NO changes in the patient's condition. Risks, benefits, and alternatives have been discussed and questions answered. Patient agrees to proceed with procedure.
--- NOTE | 2023-02-28 22:20 | P.PNAN_ITS ---
Anes - Eval Final PreProcedure Day of Procedure 02/28/23 22:20 Patient weight: obese Heart: regular rate and rhythm Lungs: clear to auscultation Airway: Mallampati scale class II and other (dentures) Neurological: alert and oriented Last oral intake: >/= 8 hours ASA classification: III Emergent: yes Anesthetic plan: proceed Anesthesia type and monitoring: general LMA and standard monitoring Results Review: All pre-operative results and documents have been reviewed as part of the pre- operative evaluation. Informed Consent: The patient's anesthetic plan and its attendant risks and benefits were discussed with the patient/family/POA. Questions were solicited and answers provided to the satisfaction of the patient/family/POA.
[2023-02-28] MEDS: LIDOCAINE HCL 2% GEL UROJET 10 ML PKG MUCOUS MEM (22:27)
[2023-02-28] MEDS: LACTATED RINGERS 1,000 ML 30 ML IV CONT (22:31)
--- NOTE | 2023-02-28 22:34 | P.OP_ITS ---
Procedure Note - Detailed Date of Procedure 02/28/23 Pre-op Diagnosis Ureteral stone, fever Post-op Diagnosis Same Procedure Performed Cystoscopy, left retrograde pyelogram, left ureteral stent placed Surgeon Ricci Mendoza MD Anesthesia MAC and Local Findings Proximal left ureteral stone Purulence from left ureter Description of Procedure She has correctly identified. Informed consent obtained. She from the operating room. She was given monitored anesthesia care. She was placed in dorsal lithotomy position. She was prepped and draped sterile fashion. She was already on appropriate antibiotics. A time-out performed. Cystoscopy revealed a normal appearing bladder. Cloudy urine was noted. Ureteral stone was seen on concert singer radiograph. I did a gentle retrograde pyelogram. Stone was in the proximal left ureter. I placed a guidewire to the kidney. I placed a stent over the guidewire. Proximal coil was placed in the upper pole kidney. Distal coil in the bladder. The bladder was drained. Lidocaine jelly was applied. she was awakened and transferred the PACU in stable condition Implants 4.8 x 26 stent Estimated Blood Loss 0 Drains Yes (Stent) Packing No Complications No immediate complications Condition Stable Disposition PACU
--- NOTE | 2023-02-28 23:06 | SUR.PHASEI ---
PT STATES HER PAIN IS TOLERABLE AT A 3/10. NO N/V. VITALS ARE STABLE, REPORT CALLED AND TAKING PT UP TO HER ROOM.
--- NOTE | 2023-02-28 23:32 | ADMGEN ---
This patient, Tiana Singer, was admitted to Medical Room 341-01. Patient/family oriented to hospital policies and general routines including ID bracelet, bed and alarms, visiting hours, pain management, procedures, bathroom and other care routines, personal items, smoking policy, room service/diet, and visiting hours. Information on how to activate the Rapid Response Team has been discussed. Patient/Family are encouraged to report perceived risks to care and to ask questions if they do not understand what they are told or what they should do.
[2023-02-28] MEDS: levoFLOXacin 750 MG/D5W 150 ML 750 MG/150 ML BAG 100 MG IVPB (23:48)
[2023-02-28] MEDS: SODIUM CHLORIDE 0.9% IV 1,000 ML 125 ML IV CONT (23:51)
[2023-03-01 00:10] VITALS: BP 134/95; PULSE 103; RESP 16; TEMP 36.5; O2SAT 95
[2023-03-01 04:55] VITALS: BP 129/75; PULSE 95; RESP 18; TEMP 36.9; O2SAT 95
[2023-03-01] MEDS: ACETAMINOPHEN 325 MG TABLET 650 MG PO (05:26)
--- NOTE | 2023-03-01 06:49 | PM.IMHP ---
H&P: HPI History of Present Illness Date/Time: 03/01/23 01:50 Chief Complaint: Kidney stone Narrative: 62-year-old female with a past medical history of kidney stones, pre diabetes, asthma and distant history of tobacco use who presented to the ER with left flank pain. 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 She woke up with severe 12/10 flank pain that radiated around to the front. The pain was similar to her prior episodes of kidney stones. It was accompanied by onset of fever later in the day with a T-max of a 102?. A was also accompanied by some nausea and she had significantly decreased oral intake. She is not having any vomiting. She denies any changes in her bowel habits. She denies any foul-smelling urine or dysuria. She has not noticed any hematuria. She reports her last kidney stone that required cystoscopy was about 5 years ago. She denies having history of prior infected kidney stones. CT performed in the ER demonstrated a 1.3 cm left UPJ stone with mild hydronephrosis. Urine was consistent with acute infection. The patient went for immediate cystoscopy and stent placement. She was afebrile on presentation the ER but had taken a dose of Tylenol before coming to the ER. She did spike a temperature postprocedure of 100.6?. Review of Systems Review of Systems: 12 systems were reviewed with pertinent positives and negatives per HPI. Except as documented in the HPI, all other systems were reviewed and are negative. She reports that she has had a history of high glucoses in the past but denies a known history of diabetes. She reports that she is on metformin to help control her weight. Saxenda for weight loss. [facility] Past Medical History Medical History (Updated 03/01/23 @ 07:15 by Jesi Yap DO) Arthritis Asthma Bilateral kidney stones Depressive disorder, not elsewhere classified Mixed hyperlipidemia Obesity (BMI 30.0-34.9) RBBB Right cervical radiculopathy Umbilical hernia without mention of obstruction or gangrene Surgical History Surgical History (Updated 03/01/23 @ 07:00 by Jesi Yap DO) H/O vaginal hysterectomy Status post arthroscopy of left shoulder Rotator cuff repair Family History Family History Sibling Cerebrovascular accident Family history of diabetes mellitus in first degree relative Family history of heart disease in male family member before age 55 Family history of elevated blood lipids Family history of cardiovascular disease Family history of coronary artery disease Mother Family history of diabetes mellitus in first degree relative Family history of heart disease in male family member before age 55 Diabetes mellitus, Onset Age: 56 Family history of cardiovascular disease, Onset Age: 56 Family history of coronary artery disease, Onset Age: 56 Father Family history of heart disease in male family member before age 55 Diabetes mellitus, Onset Age: 79 Family history of cardiovascular disease, Onset Age: 79 Family history of coronary artery disease, Onset Age: 79 Grandparent Family history of cardiovascular disease Other Family history of osteoporosis Hypertension Social History Social History (Updated 03/01/23 @ 07:07 by Jesi Yap DO) Social History: Code status: Full code Surrogate decision maker: Smoking packs per day: 1 Smoking cigarettes per day: 20.0 Years smoked: 10 Smoking pack-years: 10.00 Smoking status: Former smoker Tobacco type: cigarettes Smoking end date: 03/18/94 Alcohol intake: current Drinks per week: 1 Substance use: never Substance use type: does not use Lack of Transportation: No Lack of Food: Never True Current Housing: I Have Housing Concerned About Future Housing: No Difficulty Paying Gas/Electric Bills: No Difficulty Payin
[2023-03-01 08:00] LABS: Basophils Percent Auto 0.3 % (0.2-1.2); Eosinophils Percent Auto 0.1 % (0-4.4); Hematocrit 36.3 % (37.0-47.0); Immature Granulocyte Absolute 0.04 K/mm3 (0.00-0.031); Immature Granulocyte Percent A 0.4 % (0-0.5); Lymphocytes Absolute Auto 0.83 K/mm3 (0.9-3.2); Lymphocytes Percent Auto 8.4 % (18.3-44.2); Mean Corpuscular HGB Conc 33.1 g/dl (32-36); Mean Corpuscular Hemoglobin 31.2 pg (26-34); Mean Corpuscular Volume 94.3 fl (80-100); Mean Platelet Volume 10.1 fl (7.4-10.4); Monocytes Absolute Auto 0.7 K/mm3 (0.1-0.6); Monocytes Percent Auto 7.4 % (2.6-8.5); Neutrophils Absolute Auto 8.3 K/mm3 (1.3-6.7); Neutrophils Percent Auto 83.4 % (45.5-73.1); Platelet Count Result 225 k/mm3 (150-375); Red Blood Count 3.85 M/mm3 (4.2-5.4); White Blood Count 9.9 K/mm3 (4.5-10.0)
[2023-03-01] MEDS: diphenhydrAMINE HCl INJ 50 MG/ML VIAL IV PUSH (08:04)
[2023-03-01] MEDS: ENOXAPARIN 40 MG/0.4 ML SYRINGE SUB-Q (08:08)
[2023-03-01] MEDS: metFORMIN HCL 500 MG TABLET PO ×2 (08:08→17:39)
[2023-03-01] MEDS: buPROPion HCL XL (24 HR) 150 MG TABCR 300 MG PO (08:08)
[2023-03-01 08:10] LABS: Anion Gap 4 mmol/L (8-16); Blood Urea Nitrogen 10 mg/dL (7-17); Calcium 8.4 mg/dL (8.4-10.2); Carbon Dioxide 23 mmol/L (22-30); Chloride 104 mmol/L (98-107); Estimated CRCL calculation 77 ml/min; Estimated Glomerular Filt Rate > 60; Glucose 123 mg/dL (65-110); Potassium 3.9 mmol/L (3.4-5.0); Sodium 131 mmol/L (137-145)
--- NOTE | 2023-03-01 08:16 | WPDUROPN2 ---
Progress Note: A&P Assessment and Plan (1) Left ureteral stone: Code(s): N20.1 - Calculus of ureter Status: Acute (2) Pyelonephritis: Code(s): N12 - Tubulo-interstitial nephritis, not specified as acute or chronic Status: Acute Plan Transition to p.o. antibiotics when cultures available. Will need 14 day course. We will arrange outpatient definitive stone management Subjective Subjective Date/Time Seen: 03/01/23 08:16 Review of Systems Review of Systems: Pain stent. Mild discomfort Exam Narrative: No acute distress Alert orient x3 Objective Data Vital Signs Vital Signs: Vital Signs - 24 hr 02/28/23 16:52 02/28/23 19:31 02/28/23 21:09 Temperature 97.8 F 98.0 F Pulse Rate 102 H 78 Respiratory Rate 18 20 Blood Pressure 124/95 H 111/70 Pulse Oximetry 97 98 Oxygen Delivery Room Air Oxygen Flow Rate 02/28/23 21:31 02/28/23 22:31 02/28/23 22:45 Temperature 100.6 F H Pulse Rate 88 98 85 Respiratory Rate 20 18 17 Blood Pressure 98/40 L 105/53 L Pulse Oximetry 98 97 100 Oxygen Delivery Room Air Nasal Cannula Oxygen Flow Rate 2 02/28/23 23:00 03/01/23 00:10 03/01/23 04:55 Temperature 99.1 F 97.7 F 98.4 F Pulse Rate 87 103 H 95 Respiratory Rate 17 16 18 Blood Pressure 122/67 134/95 H 129/75 Pulse Oximetry 99 95 95 Oxygen Delivery Nasal Cannula Oxygen Flow Rate 2 Intake/Output Intake/Output: Intake & Output 02/26/23 02/27/23 02/28/23 03/01/23 23:59 23:59 23:59 23:59 Intake Total 1650 850 Output Total 1000 Balance 1650 -150 Meds/Results Medications: Active Medications Generic Name Dose Route Start Last Admin Trade Name Freq PRN Reason Stop Dose Admin Acetaminophen 650 mg 03/01/23 03:06 03/01/23 05:26 Acetaminophen 325 Mg Tablet PO 650 mg Q4H PRN Administration Mild Pain (1-3) or Fever Hydrocodone Bitart/Acetaminophen 1 tab 03/01/23 08:14 Hydrocodone/Acetaminophen (*Crx) 5-325 Mg Tablet PO Q4H PRN Pain Rated 4-6 Albuterol 2 puff 12/15/23 06:54 Albuterol Sulfate (*Sp) Aerosol 1 Puff INHALATION Q4H PRN shortness of breath or wheezing Bupropion HCl 300 mg 03/01/23 09:00 03/01/23 08:08 Bupropion Hcl Xl (24 Hr) 150 Mg Tabcr PO 300 mg QAM NAVNEET Administration Dextrose 12.5 gm 03/01/23 06:57 Dextrose 50% 25 Gm/50 Ml Syringe IV PUSH PRN PRN Hypoglycemia Protocol Diazepam 5 mg 03/01/23 06:54 Diazepam (*Crx) 5 Mg Tablet PO TID PRN muscle spasm Diphenhydramine HCl 50 mg 03/01/23 07:27 Diphenhydramine Hcl Cap 25 Mg Capsule PO Q6H PRN Itching Enoxaparin Sodium 40 mg 03/01/23 09:00 03/01/23 08:08 Enoxaparin 40 Mg/0.4 Ml Syringe SUB-Q 40 mg DAILY NAVNEET Administration Glucagon 1 mg 03/01/23 06:57 Glucagon For Inj 1 Mg Vial IM PRN PRN Hypoglycemia Protocol Glucose 15 gm 03/01/23 06:57 Glucose Oral Gel 15 Gm Of Glucse In 37.5 Gm Tube PO PRN PRN Hypoglycemia Protocol Levofloxacin/Dextrose 750 mg in 150 mls @ 100 mls/hr 02/28/23 22:00 03/01/23 01:18 Levaquin 750 Mg/D5w 150 Ml IVPB Infused Q24H NAVNEET Infusion Sodium Chloride 1,000 mls @ 125 mls/hr 02/28/23 21:40 02/28/23 23:51 Normal Saline Iv IV CONT 125 mls/hr .Q8H NAVNEET Administration Dextrose 1,000 mls @ 100 mls/hr 03/01/23 06:57 Dextrose 5% 1,000 Ml IVPB PRN PRN Hypoglycemia Protocol Insulin Aspart 2 - 5 units 03/01/23 08:00 Insulin Aspart (*Bkc) 100 Units/Ml SUB-Q TIDWM NAVNEET Protocol Metformin HCl 500 mg 03/01/23 08:00 03/01/23 08:08 Metformin Hcl 500 Mg Tablet PO 500 mg BIDWM NAV[facility]ET Administration Morphine Sulfate 4 mg 02/28/23 21:37 02/28/23 23:48 Morphine Sulfate (*Crx) 4 Mg/Ml Inj IV PUSH 4 mg Q2H PRN Administration Pain Rated 7-10 Ondansetron HCl 4 mg 02/28/23 21:37 Ondansetron Inj 4 Mg/2 Ml Vial IV PUSH Q4H MI
--- NOTE | 2023-03-01 08:19 | WPDANESPN ---
Anes - Prog Note Post-Op Date/Time: 03/01/23 08:19 Cardiovascular status: normal Respiratory status: normal Airway patency: baseline Mental status: baseline Post-Op hydration status: normal Vital Signs: Last Vital Signs Temp 98.4 F 03/01/23 04:55 Pulse 95 03/01/23 04:55 Resp 18 03/01/23 04:55 BP 129/75 03/01/23 04:55 Pulse Ox 95 03/01/23 04:55 O2 Del Method Nasal Cannula 02/28/23 23:00 O2 Flow Rate 2 02/28/23 23:00 Pain Score (VAS): 0/10 I/O: Intake & Output 02/28/23 03/01/23 03/01/23 23:59 07:59 15:59 Intake Total 1650 850 Output Total 1000 Balance 1650 -150 Laboratory Tests 03/01/23 07:47 03/01/23 07:47 02/28/23 02/28/23 02/28/23 16:59 17:47 19:20 WBC 12.1 H RBC 4.52 Hgb 13.9 Hct 41.6 MCV 92.0 MCH 30.8 MCHC 33.4 RDW 12.0 Plt Count 304 MPV 10.5 H Immature Gran % (Auto) 0.3 Neut % (Auto) 86.0 H Lymph % (Auto) 5.9 L [place] % (Auto) 7.3 Eos % (Auto) 0.2 Baso % (Auto) 0.3 Lymph # (Auto) 0.72 L [place] # (Auto) 0.9 H Eos # (Auto) 0.0 Baso # (Auto) 0.0 Abs Immat Gran (auto) 0.04 H Absolute Neuts (auto) 10.4 H Absolute Nucleated RBC 0.0 Nucleated RBC % 0.0 Sodium 133 L Potassium 4.0 Chloride 101 Carbon Dioxide 24 Anion Gap 8 BUN 12 Creatinine 0.90 Estim Creat Clear Calc 58 Estimated GFR > 60 Glucose 164 H Lactic Acid 0.8 Calcium 9.3 Total Bilirubin 0.8 AST 22 ALT 16 Alkaline Phosphatase 63 Total Protein 7.0 Albumin 4.2 Lipase 29 Urine Color Yellow Urine Appearance Cloudy H Urine pH 6.0 Ur Specific [place] 1.025 Urine Protein 3+ H Urine Glucose (UA) Negative Urine Ketones Trace H Ur Blood (Man) 2+ H Urine Nitrate Negative Urine Bilirubin 1+ H Urine Urobilinogen 0.2 Leukocyte Esterase Rfl 3+ H Urine RBC 3-5 H Urine WBC 51-75 H Ur Squamous Epith Cells Moderate H Urine Bacteria 1+ H Influenza A (RT-PCR) Negative Influenza B (RT-PCR) Negative RSV (RT-PCR) Negative SARS-CoV-2 RNA (RT-PCR) Negative 03/01/23 07:47 WBC 9.9 RBC 3.85 L Hgb 12.0 Hct 36.3 L MCV 94.3 MCH 31.2 MCHC 33.1 RDW 12.0 Plt Count 225 MPV 10.1 Immature Gran % (Auto) 0.4 Neut % (Auto) 83.4 H Lymph % (Auto) 8.4 L [place] % (Auto) 7.4 Eos % (Auto) 0.1 Baso % (Auto) 0.3 Lymph # (Auto) 0.83 L [place] # (Auto) 0.7 H Eos # (Auto) 0.0 Baso # (Auto) 0.0 Abs Immat Gran (auto) 0.04 H Absolute Neuts (auto) 8.3 H Absolute Nucleated RBC 0.0 Nucleated RBC % 0.0 Sodium 131 L Potassium 3.9 Chloride 104 Carbon Dioxide 23 Anion Gap 4 L BUN 10 Creatinine 0.70 Estim Creat Clear Calc 77 Estimated GFR > 60 Glucose 123 H Lactic Acid Calcium 8.4 Total Bilirubin AST ALT Alkaline Phosphatase Total Protein Albumin Lipase Urine Color Urine Appearance Urine pH Ur Specific [place] Urine Protein Urine Glucose (UA) Urine Ketones Ur Blood (Man) Urine Nitrate Urine Bilirubin Urine Urobilinogen Leukocyte Esterase Rfl Urine RBC Urine WBC Ur Squamous Epith Cells Urine Bacteria Influenza A (RT-PCR) Influenza B (RT-PCR) RSV (RT-PCR) SARS-CoV-2 RNA (RT-PCR) Post-procedural complaints: none Patient Feedback: Patient satisfied with anesthetic care.
[2023-03-01] MEDS: HYDROcodone/acetaminophen (*CRX) 5-325 MG TABLET 1 TAB PO ×2 (08:34→17:49)
[2023-03-01 09:05] LABS: Glucose Point of Care 124 mg/dl (65-105)
[2023-03-01] MEDS: SODIUM CHLORIDE 0.9% IV 1,000 ML 125 ML IV CONT (10:27)
[2023-03-01 10:45] VITALS: BP 95/56; PULSE 73; RESP 16; TEMP 36.7; O2SAT 96
--- NOTE | 2023-03-01 10:54 | PM.IMPN ---
Progress Note: A&P Assessment and Plan (1) Sepsis: Qualifiers: Sepsis acute organ dysfunction status: without acute organ dysfunction Sepsis type: sepsis due to unspecified organism Qualified Code(s): A41.9 - Sepsis, unspecified organism Code(s): A41.9 - Sepsis, unspecified organism Status: Acute Assessment and Plan: r/t left obstructing ureteral stone with pyelonephritis, now post operative ureteral stent placement, continue hydration and IV antibiotics pending urine culture (2) Pyelonephritis: Code(s): N12 - Tubulo-interstitial nephritis, not specified as acute or chronic Status: Acute Assessment and Plan: see 1 (3) Left ureteral stone: Code(s): N20.1 - Calculus of ureter Status: Acute Assessment and Plan: See 1 (4) Ureterolithiasis: Code(s): N20.1 - Calculus of ureter Status: Acute Assessment and Plan: see 1 (5) Hyponatremia: Code(s): E87.1 - Hypo-osmolality and hyponatremia Status: Acute Assessment and Plan: 03/01: Sodium 131 on AM labs, likely related to dehydration and sepsis, continue to monitor with daily labs (6) Dehydration: Code(s): E86.0 - Dehydration Status: Acute Assessment and Plan: See 1 and 5 (7) Urticaria: Code(s): L50.9 - Urticaria, unspecified Status: Acute Assessment and Plan: Stress induced hives per patient, resolved after IV Benadryl on 03/01. Oral Benadryl PRN. (8) Prediabetes: Code(s): R73.03 - Prediabetes Status: Acute Assessment and Plan: Monitor fingerstick glucose, a1c 5.4 in 10/2022. Diabetic diet with low dose SSI for correction as needed Plan IV Levaquin (hives after Rocephin but question that this was an allergic reaction as patient has history of recurrent urticaria) Change to inpatient status, will require IV antibiotics and close management until urine culture results. Time Spent With Patient Time with patient: 25 - 35 minutes Subjective Date/time seen: 03/01/23 10:54 Interval history: 03/01 H&P: 62-year-old female with a past medical history of kidney stones, pre diabetes, asthma and distant history of tobacco use who presented to the ER with left flank pain.? 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 She woke up with severe 12/10 flank pain that radiated around to the front.? The pain was similar to her prior episodes of kidney stones.? It was accompanied by onset of fever later in the day with a T-max of a 102?.? A was also accompanied by some nausea and she had significantly decreased oral intake.? She is not having any vomiting.? She denies any changes in her bowel habits.? She denies any foul-smelling urine or dysuria.? She has not noticed any hematuria.? She reports her last kidney stone that required cystoscopy was about 5 years ago.? She denies having history of prior infected kidney stones.? CT performed in the ER demonstrated a 1.3 cm left UPJ stone with mild hydronephrosis.? Urine was consistent with acute infection.? The patient went for immediate cystoscopy and stent placement.? She was afebrile on presentation the ER but had taken a dose of Tylenol before coming to the ER.? She did spike a temperature postprocedure of 100.6?. 03/01 Rounding: Patient feeling better after stent placement, fluids and IV antibiotics. Hives relieved after IV Benadryl. Patient reports continued left flank pain/tenderness. Nausea is relieved at this time and patient tolerating oral food/fluids. Exam Narrative: GENERAL: mild to moderately ill appearing, alert and oriented, in no apparent distress. She is pleasant and conversant in full sentences. HEENT: Pupils are equally round and briskly reactive to light. Extraocular muscles are intact. Oral mucous membranes are moist without lesions. NECK: The patient has no noted JVD. No adenopathy is appreciated. CHEST/LUNGS: Lungs a
[2023-03-01 12:13] LABS: Glucose Point of Care 109 mg/dl (65-105)
[2023-03-01] MEDS: MORPHINE SULFATE (*CRX) 4 MG/ML INJ IV PUSH ×2 (14:36→20:05)
[2023-03-01 14:51] VITALS: BP 141/68; PULSE 89; RESP 18; TEMP 37.5; O2SAT 98
[2023-03-01 18:34] LABS: Glucose Point of Care 107 mg/dl (65-105)
[2023-03-01 20:00] VITALS: PULSE 89; RESP 18; O2SAT 98
[2023-03-01] MEDS: diphenhydrAMINE HCl CAP 25 MG CAPSULE 50 MG PO (20:06)
[2023-03-01 20:17] LABS: Glucose Point of Care 123 mg/dl (65-105)
[2023-03-01] MEDS: traZODone HCL 50 MG TABLET 200 MG PO (21:00)
[2023-03-01] MEDS: levoFLOXacin 750 MG/D5W 150 ML 750 MG/150 ML BAG 100 MG IVPB (21:02)
[2023-03-01 22:36] VITALS: BP 115/58; PULSE 83; RESP 18; TEMP 36.8; O2SAT 96
[2023-03-02 06:00] VITALS: BP 133/84; PULSE 86; RESP 18; TEMP 37.1; O2SAT 95
[2023-03-02 08:06] LABS: Basophils Percent Auto 0.3 % (0.2-1.2); Eosinophils Absolute Auto 0.1 K/mm3 (0-0.3); Hematocrit 32.1 % (37.0-47.0); Hemoglobin 10.4 g/dL (12.0-15.0); Immature Granulocyte Absolute 0.02 K/mm3 (0.00-0.031); Immature Granulocyte Percent A 0.3 % (0-0.5); Lymphocytes Absolute Auto 0.81 K/mm3 (0.9-3.2); Lymphocytes Percent Auto 13.4 % (18.3-44.2); Mean Corpuscular HGB Conc 32.4 g/dl (32-36); Mean Corpuscular Hemoglobin 31.1 pg (26-34); Mean Corpuscular Volume 96.1 fl (80-100); Mean Platelet Volume 10.3 fl (7.4-10.4); Monocytes Absolute Auto 0.6 K/mm3 (0.1-0.6); Monocytes Percent Auto 9.6 % (2.6-8.5); Neutrophils Absolute Auto 4.6 K/mm3 (1.3-6.7); Neutrophils Percent Auto 75.4 % (45.5-73.1); Platelet Count Result 189 k/mm3 (150-375); Red Blood Count 3.34 M/mm3 (4.2-5.4)
[2023-03-02 08:14] LABS: Glucose Point of Care 140 mg/dl (65-105)
[2023-03-02 08:19] LABS: Anion Gap 2 mmol/L (8-16); Blood Urea Nitrogen 9 mg/dL (7-17); Calcium 8.5 mg/dL (8.4-10.2); Carbon Dioxide 26 mmol/L (22-30); Chloride 103 mmol/L (98-107); Estimated CRCL calculation 68 ml/min; Estimated Glomerular Filt Rate > 60; Glucose 131 mg/dL (65-110); Potassium 3.7 mmol/L (3.4-5.0); Sodium 131 mmol/L (137-145)
[2023-03-02] MEDS: buPROPion HCL XL (24 HR) 150 MG TABCR 300 MG PO (08:44)
[2023-03-02 08:45] VITALS: BP 113/62
[2023-03-02] MEDS: ENOXAPARIN 40 MG/0.4 ML SYRINGE SUB-Q (08:45)
[2023-03-02] MEDS: metFORMIN HCL 500 MG TABLET PO ×2 (08:48→17:28)
[2023-03-02] MEDS: HYDROcodone/acetaminophen (*CRX) 5-325 MG TABLET 1 TAB PO ×2 (11:30→20:04)
--- NOTE | 2023-03-02 11:53 | WPDUROPN2 ---
Progress Note: A&P Assessment and Plan (1) Left ureteral stone: Code(s): N20.1 - Calculus of ureter Status: Acute (2) Sepsis: Qualifiers: Sepsis type: sepsis due to unspecified organism Sepsis acute organ dysfunction status: without acute organ dysfunction Qualified Code(s): A41.9 - Sepsis, unspecified organism Code(s): A41.9 - Sepsis, unspecified organism Status: Acute Plan Awaiting urine culture results. Then transition to p.o. antibiotics. Outpatient stone management Subjective Subjective Date/Time Seen: 03/02/23 11:53 Interval history: Awaiting urine culture. Preliminary shows Gram-negative rods Exam Narrative: No acute distress Normal breathing Objective Data Vital Signs Vital Signs: Vital Signs - 24 hr 03/01/23 14:51 03/01/23 20:00 03/01/23 22:36 Temperature 99.5 F 98.3 F Pulse Rate 89 89 83 Respiratory Rate 18 18 18 Blood Pressure 141/68 H 115/58 L Pulse Oximetry 98 98 96 Oxygen Delivery Room Air 03/02/23 06:00 03/02/23 08:00 03/02/23 08:45 Temperature 98.7 F Pulse Rate 86 Respiratory Rate 18 Blood Pressure 133/84 113/62 Pulse Oximetry 95 Oxygen Delivery Room Air Intake/Output Intake/Output: Intake & Output 02/27/23 02/28/23 03/01/23 03/02/23 23:59 23:59 23:59 23:59 Intake Total 1650 4620 1190 Output Total 2600 700 Balance 1650 2020 490 Meds/Results Medications: Active Medications Generic Name Dose Route Start Last Admin Trade Name Freq PRN Reason Stop Dose Admin Acetaminophen 650 mg 03/01/23 03:06 03/01/23 05:26 Acetaminophen 325 Mg Tablet PO 650 mg Q4H PRN Administration Mild Pain (1-3) or Fever Hydrocodone Bitart/Acetaminophen 1 tab 03/01/23 08:14 03/02/23 11:30 Hydrocodone/Acetaminophen (*Crx) 5-325 Mg Tablet PO 1 tab Q4H PRN Administration Pain Rated 4-6 Albuterol 2 puff 03/01/23 06:54 Albuterol Sulfate (*Sp) Aerosol 1 Puff INHALATION Q4H PRN shortness of breath or wheezing Bupropion HCl 300 mg 03/01/23 09:00 03/02/23 08:44 Bupropion Hcl Xl (24 Hr) 150 Mg Tabcr PO 300 mg QAM NAV[facility]ET Administration Dextrose 12.5 gm 03/01/23 06:57 Dextrose 50% 25 Gm/50 Ml Syringe IV PUSH PRN PRN Hypoglycemia Protocol Diazepam 5 mg 03/01/23 06:54 Diazepam (*Crx) 5 Mg Tablet PO TID PRN muscle spasm Diphenhydramine HCl 50 mg 03/01/23 07:27 03/01/23 20:06 Diphenhydramine Hcl Cap 25 Mg Capsule PO 50 mg Q6H PRN Administration Itching Enoxaparin Sodium 40 mg 03/01/23 09:00 03/02/23 08:45 Enoxaparin 40 Mg/0.4 Ml Syringe SUB-Q 40 mg DAILY NAVNEET Administration Glucagon 1 mg 03/01/23 06:57 Glucagon For Inj 1 Mg Vial IM PRN PRN Hypoglycemia Protocol Glucose 15 gm 03/01/23 06:57 Glucose Oral Gel 15 Gm Of Glucse In 37.5 Gm Tube PO PRN PRN Hypoglycemia Protocol Levofloxacin/Dextrose 750 mg in 150 mls @ 100 mls/hr 02/28/23 22:00 03/01/23 22:28 Levaquin 750 Mg/D5w 150 Ml IVPB Infused Q24H [facility] Infusion Dextrose 1,000 mls @ 100 mls/hr 03/01/23 06:57 Dextrose 5% 1,000 Ml IVPB PRN PRN Hypoglycemia Protocol Insulin Aspart 2 - 5 units 03/01/23 08:00 03/02/23 08:42 Insulin Aspart (*Bkc) 100 Units/Ml SUB-Q Not Given TIDWM [facility] Protocol Metformin HCl 500 mg 03/01/23 08:00 03/02/23 08:48 Metformin Hcl 500 Mg Tablet PO 500 mg BIDWM [facility] Administration Morphine Sulfate 4 mg 02/28/23 21:37 03/01/23 20:05 Morphine Sulfate (*Crx) 4 Mg/Ml Inj IV PUSH 4 mg Q2H PRN Administration Pain Rated 7-10 Ondansetron HCl 4 mg 02/28/23 21:37 Ondansetron Inj 4 Mg/2 Ml Vial IV PUSH Q4H PRN Nausea Trazodone HCl 200 mg 03/01/23 21:00 03/01/23 21:00 Trazodone Hcl 50 Mg Tablet PO 200 mg HS NAVNEET Administration Radiology Results: ITS Impressions Abdomen/Pelvis CT 02/28/23 19:09 IMPRESSION
[2023-03-02 12:22] LABS: Glucose Point of Care 113 mg/dl (65-105)
--- NOTE | 2023-03-02 12:33 | PM.IMPN ---
Progress Note: A&P Assessment and Plan (1) Sepsis: Qualifiers: Sepsis type: sepsis due to unspecified organism Sepsis acute organ dysfunction status: without acute organ dysfunction Qualified Code(s): A41.9 - Sepsis, unspecified organism Code(s): A41.9 - Sepsis, unspecified organism Status: Acute Assessment and Plan: r/t left obstructing ureteral stone with pyelonephritis, now post operative ureteral stent placement, continue hydration and IV antibiotics pending urine culture (2) Pyelonephritis: Code(s): N12 - Tubulo-interstitial nephritis, not specified as acute or chronic Status: Acute Assessment and Plan: see 1 (3) Left ureteral stone: Code(s): N20.1 - Calculus of ureter Status: Acute Assessment and Plan: See 1 (4) Ureterolithiasis: Code(s): N20.1 - Calculus of ureter Status: Acute Assessment and Plan: see 1 (5) Hyponatremia: Code(s): E87.1 - Hypo-osmolality and hyponatremia Status: Acute Assessment and Plan: 03/01: Sodium 131 on AM labs, likely related to dehydration and sepsis, continue to monitor with daily labs 03/02: sodium stable at 131 continue to monitor (6) Dehydration: Code(s): E86.0 - Dehydration Status: Acute Assessment and Plan: See 1 and 5 (7) Urticaria: Code(s): L50.9 - Urticaria, unspecified Status: Acute Assessment and Plan: Stress induced hives per patient, resolved after IV Benadryl on 03/01. Oral Benadryl PRN. (8) Prediabetes: Code(s): R73.03 - Prediabetes Status: Acute Assessment and Plan: Monitor fingerstick glucose, a1c 5.4 in 10/2022. Diabetic diet with low dose SSI for correction as needed Plan IV Levaquin (hives after Rocephin but question that this was an allergic reaction as patient has history of recurrent urticaria) Change to inpatient status, will require IV antibiotics and close management until urine culture results. Time Spent With Patient Time with patient: 25 - 35 minutes Subjective Date/time seen: 03/02/23 12:33 Interval history: 03/01 H&P: 62-year-old female with a past medical history of kidney stones, pre diabetes, asthma and distant history of tobacco use who presented to the ER with left flank pain.? 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 She woke up with severe 12/10 flank pain that radiated around to the front.? The pain was similar to her prior episodes of kidney stones.? It was accompanied by onset of fever later in the day with a T-max of a 102?.? A was also accompanied by some nausea and she had significantly decreased oral intake.? She is not having any vomiting.? She denies any changes in her bowel habits.? She denies any foul-smelling urine or dysuria.? She has not noticed any hematuria.? She reports her last kidney stone that required cystoscopy was about 5 years ago.? She denies having history of prior infected kidney stones.? CT performed in the ER demonstrated a 1.3 cm left UPJ stone with mild hydronephrosis.? Urine was consistent with acute infection.? The patient went for immediate cystoscopy and stent placement.? She was afebrile on presentation the ER but had taken a dose of Tylenol before coming to the ER.? She did spike a temperature postprocedure of 100.6?. 03/01 Rounding: Patient feeling better after stent placement, fluids and IV antibiotics. Hives relieved after IV Benadryl. Patient reports continued left flank pain/tenderness. Nausea is relieved at this time and patient tolerating oral food/fluids. 03/02: patient resting comfortably in bed, left flank pain continues intermittently but is improved. Patient ambulatory around the room without dizziness. No fever chills. Nausea is gone. No dysuria. IV antibiotics continue. Urine culture shows Gram-negative bacilli awaiting speciation and sensitivity. Review of Systems Review of Sy
[2023-03-02 14:00] VITALS: BP 116/60; PULSE 78; RESP 16; TEMP 36.4; O2SAT 97
[2023-03-02 19:58] VITALS: BP 137/62; PULSE 77; RESP 16; O2SAT 100
[2023-03-02] MEDS: traZODone HCL 50 MG TABLET 200 MG PO (20:04)
[2023-03-02] MEDS: levoFLOXacin 750 MG/D5W 150 ML 750 MG/150 ML BAG 100 MG IVPB (21:00)
[2023-03-02 21:14] VITALS: TEMP 36.9
[2023-03-02 21:16] LABS: Glucose Point of Care 142 mg/dl (65-105)
[2023-03-03 05:35] VITALS: BP 125/74; PULSE 73; RESP 16; TEMP 36.9; O2SAT 96
[2023-03-03 08:51] LABS: Glucose Point of Care 100 mg/dl (65-105)
[2023-03-03] MEDS: buPROPion HCL XL (24 HR) 150 MG TABCR 300 MG PO (09:16)
[2023-03-03] MEDS: metFORMIN HCL 500 MG TABLET PO (09:16)
[2023-03-03] MEDS: HYDROcodone/acetaminophen (*CRX) 5-325 MG TABLET 1 TAB PO ×2 (09:17→14:04)
[2023-03-03] MEDS: ENOXAPARIN 40 MG/0.4 ML SYRINGE SUB-Q (09:17)
--- NOTE | 2023-03-03 11:10 | WPDUROPN2 ---
Progress Note: A&P Assessment and Plan (1) Sepsis: Qualifiers: Sepsis type: sepsis due to unspecified organism Sepsis acute organ dysfunction status: without acute organ dysfunction Qualified Code(s): A41.9 - Sepsis, unspecified organism Code(s): A41.9 - Sepsis, unspecified organism Status: Acute (2) Ureteral stone: Code(s): N20.1 - Calculus of ureter Status: Acute Plan Can transition to p.o. antibiotics. Outpatient stone management Subjective Subjective Date/Time Seen: 03/03/23 11:10 Interval history: Urine culture shows multidrug sensitive Klebsiella Exam Narrative: No acute distress Normal breathing Alert orient x3 Objective Data Vital Signs Vital Signs: Vital Signs - 24 hr 03/02/23 14:00 03/02/23 19:58 03/02/23 20:00 Temperature 97.6 F Pulse Rate 78 77 Respiratory Rate 16 16 Blood Pressure 116/60 137/62 Pulse Oximetry 97 100 Oxygen Delivery Room Air 03/02/23 21:14 03/03/23 05:35 Temperature 98.4 F 98.4 F Pulse Rate 73 Respiratory Rate 16 Blood Pressure 125/74 Pulse Oximetry 96 Oxygen Delivery Intake/Output Intake/Output: Intake & Output 02/28/23 03/01/23 03/02/23 03/03/23 23:59 23:59 23:59 23:59 Intake Total 1650 4620 2820 1050 Output Total 2600 1100 1000 Balance 1650 2020 1720 50 Meds/Results Medications: Active Medications Generic Name Dose Route Start Last Admin Trade Name Freq PRN Reason Stop Dose Admin Acetaminophen 650 mg 03/01/23 03:06 03/01/23 05:26 Acetaminophen 325 Mg Tablet PO 650 mg Q4H PRN Administration Mild Pain (1-3) or Fever Hydrocodone Bitart/Acetaminophen 1 tab 03/01/23 08:14 03/03/23 09:17 Hydrocodone/Acetaminophen (*Crx) 5-325 Mg Tablet PO 1 tab Q4H PRN Administration Pain Rated 4-6 Albuterol 2 puff 03/01/23 06:54 Albuterol Sulfate (*Sp) Aerosol 1 Puff INHALATION Q4H PRN shortness of breath or wheezing Bupropion HCl 300 mg 03/01/23 09:00 03/03/23 09:16 Bupropion Hcl Xl (24 Hr) 150 Mg Tabcr PO 300 mg QAM NAVNEET Administration Dextrose 12.5 gm 03/01/23 06:57 Dextrose 50% 25 Gm/50 Ml Syringe IV PUSH PRN PRN Hypoglycemia Protocol Diazepam 5 mg 03/01/23 06:54 Diazepam (*Crx) 5 Mg Tablet PO TID PRN muscle spasm Diphenhydramine HCl 50 mg 03/01/23 07:27 03/01/23 20:06 Diphenhydramine Hcl Cap 25 Mg Capsule PO 50 mg Q6H PRN Administration Itching Enoxaparin Sodium 40 mg 03/01/23 09:00 03/03/23 09:17 Enoxaparin 40 Mg/0.4 Ml Syringe SUB-Q 40 mg DAILY NAVNEET Administration Glucagon 1 mg 03/01/23 06:57 Glucagon For Inj 1 Mg Vial IM PRN PRN Hypoglycemia Protocol Glucose 15 gm 03/01/23 06:57 Glucose Oral Gel 15 Gm Of Glucse In 37.5 Gm Tube PO PRN PRN Hypoglycemia Protocol Levofloxacin/Dextrose 750 mg in 150 mls @ 100 mls/hr 02/28/23 22:00 03/02/23 22:28 Levaquin 750 Mg/D5w 150 Ml IVPB Infused Q24H NAVNEET Infusion Dextrose 1,000 mls @ 100 mls/hr 03/01/23 06:57 Dextrose 5% 1,000 Ml IVPB PRN PRN Hypoglycemia Protocol Insulin Aspart 2 - 5 units 03/01/23 08:00 03/03/23 09:16 Insulin Aspart (*Bkc) 100 Units/Ml SUB-Q Not Given TIDWM [facility] Protocol Metformin HCl 500 mg 03/01/23 08:00 03/03/23 09:16 Metformin Hcl 500 Mg Tablet PO 500 mg BIDWM [place]NEET Administration Morphine Sulfate 4 mg 02/28/23 21:37 03/01/23 20:05 Morphine Sulfate (*Crx) 4 Mg/Ml Inj IV PUSH 4 mg Q2H PRN Administration Pain Rated 7-10 Ondansetron HCl 4 mg 02/28/23 21:37 Ondansetron Inj 4 Mg/2 Ml Vial IV PUSH Q4H PRN Nausea Trazodone HCl 200 mg 03/01/23 21:00 03/02/23 20:04 Trazodone Hcl 50 Mg Tablet PO 200 mg HS NAVNEET Administration Radiology Results: ITS Impressions Abdomen/Pelvis CT 02/28/23 19:09 IMPRESSION: 1. Bilateral nephrolithiasis with obstructing 1.3 cm stone at t
[2023-03-03 12:04] LABS: Glucose Point of Care 126 mg/dl (65-105)
--- NOTE | 2023-03-03 13:00 | PM.DS ---
DS: Admitting Diagnosis Discharge Date 03/03/2023 Admitting Diagnosis Sepsis secondary to left obstructing ureteral stone with pyelonephritis Pyelonephritis Hyponatremia Dehydration DS: Discharge Diagnosis Discharge Diagnosis (1) Pyelonephritis: Code(s): N12 - Tubulo-interstitial nephritis, not specified as acute or chronic Status: Acute Assessment and Plan: see 1 (2) Left ureteral stone: Code(s): N20.1 - Calculus of ureter Status: Acute Assessment and Plan: See 1 (3) Prediabetes: Code(s): R73.03 - Prediabetes Status: Acute Assessment and Plan: Monitor fingerstick glucose, a1c 5.4 in 10/2022. Diabetic diet with low dose SSI for correction as needed Plan Will plan to discharge patient home to follow renal stint directions and follow up with urology as an outpatient. Continue Levoquin oral for a total of 14 days. DS: Summary Hospital Course Reason for hospitalization: Hyponatremia Dehydration Sepsis Left ureteral stone Pyelonephritis Hospital Course: 03/01 H&P:? 62-year-old female with a past medical history of kidney stones, pre diabetes, asthma and distant history of tobacco use who presented to the ER with left flank pain.? The patient reported that started having symptoms in the supreme court judge hours on Saturday.? She woke up with severe 12/10 flank pain that radiated around to the front.? The pain was similar to her prior episodes of kidney stones.? It was accompanied by onset of fever later in the day with a T-max of a 102?.? A was also accompanied by some nausea and she had significantly decreased oral intake.? She is not having any vomiting.? She denies any changes in her bowel habits.? She denies any foul-smelling urine or dysuria.? She has not noticed any hematuria.? She reports her last kidney stone that required cystoscopy was about 5 years ago.? She denies having history of prior infected kidney stones.? CT performed in the ER demonstrated a 1.3 cm left UPJ stone with mild hydronephrosis.? Urine was consistent with acute infection.? The patient went for immediate cystoscopy and stent placement.? She was afebrile on presentation the ER but had taken a dose of Tylenol before coming to the ER.? She did spike a temperature postprocedure of 100.6?. 03/01 Rounding:? Patient feeling better after stent placement, fluids and IV antibiotics.? Hives relieved after IV Benadryl.? Patient reports continued left flank pain/tenderness.? Nausea is relieved at this time and patient tolerating oral food/fluids.? 03/02: patient resting comfortably in bed, left flank pain continues intermittently but is improved.? Patient ambulatory around the room without dizziness.? No fever chills.? Nausea is gone.? No dysuria.? IV antibiotics continue.? Urine culture shows Gram-negative bacilli awaiting speciation and sensitivity. 03/03: Urine culture returned showing Klebsiella which is sensitive to the levofloxacin. Patient pain is controlled, vital signs and lab work remained stable. Will plan to discharge patient home today to follow up with Urology as an outpatient. Will continue levofloxacin for a total of 14 days. Status at Discharge Cognitive/behavioral status at discharge: Patient is alert oriented x4 and appears in no acute distress. Functional status at discharge: independent ambulation Overall status at discharge: patient is progressing back to baseline Time Spent with Patient Time attestation: Total time spent providing and/or coordinating discharge services: Time spent: Less than 30 minutes Exam Narrative: Patient is alert and oriented x4 with a pleasant affect. Appears in no acute distress. States she is looking forward to going home. Const: General: comfortable and no acute distress HENMT: Face/Nose/Sinus: Normal nares present Mouth: Yes moist mucous membranes Eyes: General: appearance normal, both eyes and all related structures Sclera: sclerae normal Pupils
[2023-03-05 08:22] LABS: Glucose Point of Care 123 mg/dl (65-105)
== END 2023-03-03 14:11 | disposition home or self-care (01) | DRG 854 ==
LOC: ANHED 21:37 → ANH3MED 23:07
PROVIDERS: Nurse Practitioner; Student in an Organized Health Care Education/Training Program; Urology; Admitting Provider Internal Medicine; Emergency Provider Physician Assistant; PCP Family Medicine; Visit Provider Nurse Practitioner Family
PROC: 0T778DZ Dilation of Left Ureter with Intraluminal Device, Via Natural or Artificial Opening Endoscopic (ICD-10-PCS; CPT 52352; principal; 2023-02-28 22:00)
DX: A41.9 Sepsis, unspecified organism (principal); E87.1 Hypo-osmolality and hyponatremia; N13.6 Pyonephrosis; E86.0 Dehydration; B96.1 Klebsiella pneumoniae [K. pneumoniae] as the cause of diseases classified elsewhere; J45.909 Unspecified asthma, uncomplicated; L50.8 Other urticaria; K42.9 Umbilical hernia without obstruction or gangrene; R73.03 Prediabetes; E66.9 Obesity, unspecified; M54.12 Radiculopathy, cervical region; M19.90 Unspecified osteoarthritis, unspecified site; F32.A Depression, unspecified; Z20.822 Contact with and (suspected) exposure to COVID-19; Z87.891 Personal history of nicotine dependence; Z87.442 Personal history of urinary calculi
CPT/HCPCS: 36415; 71045; 74176; 74420; 80048; 80053; 81001; 81025; 82948; 83605; 83690; 85025; 87040; 87077; 87086; 87186; 87637; 93005; 96361; 96365; 96375; 99285; A9270; C1758; C1769; C2617; G0378; J0696; J1200; J1650; J1956; J2250; J2270; J2405; J2704; J3010; J7030; J7120; Q9966

== ENCOUNTER 2023-03-26 10:01 | Outpatient (CLI) | payer OTHER, SELFPAY ==
[2023-03-26 10:32] LABS: Sodium 136 mmol/L (137-145)
[2023-03-26 10:40] LABS: INR 0.9; Prothrombin Time 12.8 Seconds (11.1-14.7)
[2023-03-26 10:41] LABS: Partial Thromboplastin Time 32.8 SECONDS (22.3-36.8)
== END 2023-03-26 10:02 | disposition home or self-care (01) ==
LOC: ANHSURGERY 10:04
PROVIDERS: Anesthesiology; PCP Family Medicine; Visit Provider Urology
DX: Z01.818 Encounter for other preprocedural examination (principal); N20.1 Calculus of ureter; E87.1 Hypo-osmolality and hyponatremia
CPT/HCPCS: 36415; 84295; 85610; 85730; 87086; 87088

== ENCOUNTER 2023-03-29 00:36 | Day surgery (SDC) | payer OTHER, SELFPAY ==
[2023-03-25 09:27] VITALS: BMI 30.9
--- NOTE | 2023-03-25 09:33 | PC.NURSE ---
Report to the Outpatient Waiting Room, entrance under the green pavilion located off [facility], at time 10:00 on date 03/29/23. Planned Procedure Time: 12:00. Time changes happen often and if your time is changed the preop area will call you the afternoon before. - You and your visitor will be asked to self-screen and do not enter if you have any COVID symptoms. - A mask is optional within the hospital at this time. Patients may have clear liquids (water, carbonated beverages, clear teas, apple juice) until 3 hours prior to surgery (9:00) with a maximum of 20 ounces. - No food from midnight until time of surgery Take the following medications with a SIP of water the morning of surgery: WELLBUTRIN, INHALER/DIAZEPAM IF NEEDED DO NOT STOP ANY OF YOUR OTHER PRESCRIPTION MEDICATIONS PRIOR TO SURGERY ?EXCEPT THE FOLLOWING Medications to discontinue per physician: VITAMINS/SUPPLEMENTS Date to take last dose: PT HAS ALREADY STOPPED Please no make-up, nail japanese, hairspray, perfume, deodorant, or body powder the day of surgery. No jewelry (including any body piercings) or valuables the day of surgery, leave them at home. Please take a shower or bath the night before, or the morning of, surgery with an antibacterial soap. Wear comfortable, loose fitting clothing. - Jewelry must be removed prior to entering the operating room. Rings and piercings that are not removed may be cut off. - The hospital will not accept responsibility for valuables. - Please leave all valuables, including medications, at home the day of surgery. If you are going home after surgery, a licensed log driver must drive you home. - NO public transportation without another adult if you receive anesthesia. - We recommend that an adult stay with you for 24 hours following discharge. - We also recommend that you do not drive, make important decision, drink alcoholic beverages, or take any drugs that were not prescribed by your health care provider for at least 24 hours after your discharge time. Follow any additional instructions given to you from your surgeon. If you or anyone in your household have experienced Covid symptoms in the past week, please notify your surgeon or the nurse liaison at the phone number below for possible testing. Telephone instructions given to PT - STEVEN SUMMERS and asked if any additional questions and then verbalized understanding. Patient advised to call surgeon office or pre surgery nurse liaison [phone] if any additional questions.
--- NOTE | 2023-03-27 07:54 | PM.HPGS ---
History of Present Illness History of Present Illness Consent: Risks, benefits, and alternatives have been discussed and questions answered. Patient agrees to proceed with procedure. Chief complaint: Lt Ureteral Stone Narrative: Tiana Singer is a 62 year old female who was admitted to [facility] with a 1.3 cm obstructing left renal pelvic calculus. Additionally, she has non-obstructing bilateral renal calculi. A ureteral stent was placed and following treatment for her urinary tract infections she now presents for left ESWL. She is aware of the risks including, but not limited to, need for additional procedures, hematuria, perinephric hematoma. Review of Systems Cardiovascular: Cardiovascular: Denies chest pain, Denies lightheadedness, Denies palpitations and Denies dyspnea Respiratory: Respiratory: Denies dyspnea Gastrointestinal: Gastrointestinal: Denies diarrhea, Denies nausea and Denies vomiting Genitourinary: Genitourinary: Denies hematuria and Denies dysuria Endocrine: Endocrine: Denies palpitations PMFSH Past Medical History Medical History (Updated 03/01/23 @ 12:17 by Daryl Hassan APRN) Arthritis Asthma Bilateral kidney stones Depressive disorder, not elsewhere classified Mixed hyperlipidemia Obesity (BMI 30.0-34.9) RBBB Right cervical radiculopathy Umbilical hernia without mention of obstruction or gangrene Surgical History Surgical History (Updated 03/01/23 @ 07:00 by Jesi Yap DO) H/O vaginal hysterectomy Status post arthroscopy of left shoulder Rotator cuff repair Family History Family History Sibling Cerebrovascular accident Family history of diabetes mellitus in first degree relative Family history of heart disease in male family member before age 55 Family history of elevated blood lipids Family history of cardiovascular disease Family history of coronary artery disease Mother Family history of diabetes mellitus in first degree relative Family history of heart disease in male family member before age 55 Diabetes mellitus, Onset Age: 56 Family history of cardiovascular disease, Onset Age: 56 Family history of coronary artery disease, Onset Age: 56 Father Family history of heart disease in male family member before age 55 Diabetes mellitus, Onset Age: 79 Family history of cardiovascular disease, Onset Age: 79 Family history of coronary artery disease, Onset Age: 79 Grandparent Family history of cardiovascular disease Other Family history of osteoporosis Hypertension Social History Social History (Updated 03/01/23 @ 07:55 by Jesi Yap DO) Social History: She drinks 1 cup of coffee a day. She rarely drinks soda. Code status: Full code Surrogate decision maker: Smoking packs per day: 0.5 Smoking cigarettes per day: 10.0 Years smoked: 10 Smoking pack-years: 5.00 Smoking status: Former smoker Tobacco type: cigarettes Smoking end date: 03/18/94 Alcohol intake: current Drinks per week: 1 Alcohol use details: 2/ MONTH Substance use: never Substance use type: does not use Do You Feel Safe in your Home?: Yes Lack of Transportation: No Lack of Food: Never True Current Housing: I Have Housing Concerned About Future Housing: No Difficulty Paying Gas/Electric Bills: No Difficulty Paying for Meds: No Currently Unemployed: No Education: High School Diploma/GED Difficulty w/ Childcare or Family Care: No Living arrangements: with family Additional living arrangements comments: Patient lives with her of 45 years. They raised 4 children. Additional occupation/education comments: She is retired EMS dispatcher. Gender identity (if verbalized by the patient): Female Sexual Orientation (if Verbalized by the Patient): Straight or Heterosexual Spiritual care concerns: No M
[2023-03-29] VITALS (8 sets, daily range): BP systolic 101–147; BP diastolic 64–96; PULSE 71–85; RESP 8–18; TEMP 36.2–36.3; O2SAT 95–100
--- NOTE | ~2023-03-29 | XR_ITS ---
Supine and upright views of the abdomen Clinical history: Lithotripsy COMPARISON: 05/02/2018 Findings: Bowel gas pattern is nonspecific. No evidence for obstruction or free air. Left ureteral st ent in place. There is a 15 mm amorphous stone at the proximal pigtail, presumably no left renal pelv is region. 2 additional left upper pole renal stones are present measuring up to 1 cm in diameter eac h. Additional smaller bilateral renal stones are also present. Osseous structures are intact. Impression: Bilateral nephrolithiasis, as detailed above. Left ureteral stent present. Reviewed, dictated and finalized at location M. L ADJUSTER Impression: Bilateral nephrolithiasis, as detailed above. Left ureteral stent present.
--- NOTE | 2023-03-29 06:11 | WPDHPUPDATE1 ---
History and Physical Update Update Date/Time: 03/29/23 06:11 History and Physical has been reviewed, including an updated exam of the patient. There are NO changes in the patient's condition. Risks, benefits, and alternatives have been discussed and questions answered. Patient agrees to proceed with procedure.
[2023-03-29 10:47] LABS: Glucose Point of Care 104 mg/dl (65-105)
--- NOTE | 2023-03-29 11:07 | WPDANESEPPF ---
Anes - Initial Pre Proc Eval Procedure: Operation Date: 03/29/23 12:00 Proposed Procedures p Left Extracorporeal Shock Wave Lithotripsy - Toan Estes MD Date/Time: 03/29/23 11:07 Surgeon: Toan Estes MD Pre Op Diagnosis: Lt Ureteral Stone Patient Data Age: 62 Gender: F Height: 1.63 m Weight: 82.8 kg Last Vital Signs Temp 36.3 C L 03/29/23 10:08 Pulse 80 03/29/23 10:08 Resp 18 03/29/23 10:08 BP 116/96 H 03/29/23 10:08 Pulse Ox 98 03/29/23 10:08 O2 Del Method Room Air 03/29/23 10:08 Allergies Allergy/AdvReac Type Severity Reaction Status Date / Time ceftriaxone [From Rocephin] Allergy Hives Verified 03/29/23 10:15 Home Medications Medication Instructions Recorded Confirmed Type albuterol sulfate 90 mcg/actuation 2 puff inhalation Q4H PRN 05/19/21 03/29/23 Rx aerosol inhaler (ProAir HFA) shortness of breath or wheezing #8.5 grams liraglutide (weight loss) 3 mg/0.5 3 mg (0.5 mL) subcut DAILY #15 mL 10/19/22 03/29/23 Rx mL (18 mg/3 mL) subcut pen injector (Saxenda) bupropion HCl 300 mg 24 hr tablet, 300 mg PO QAM #90 tabs 11/14/22 03/29/23 Rx extended release (Wellbutrin XL) metformin 500 mg tablet 500 mg PO BIDWMEAL #180 tabs 12/17/22 03/29/23 Rx diazepam 5 mg tablet 5 mg PO TID PRN muscle spasm #30 12/20/22 03/29/23 Rx tabs trazodone 100 mg tablet 200 mg PO HS 02/28/23 03/29/23 History multivitamin 1 tablet PO DAILY 03/25/23 03/29/23 History Laboratory Tests 03/29/23 10:42 POC Capillary Glucose 104 mg/dl (65-105) Patient hx anesthesia problems: none Family hx anesthesia problems: none Results Review: All pre-operative results and documents have been reviewed as part of the pre-operative evaluation. [facility] Past Medical History Medical History Arthritis Asthma Bilateral kidney stones Depressive disorder, not elsewhere classified Mixed hyperlipidemia Obesity (BMI 30.0-34.9) RBBB Right cervical radiculopathy Umbilical hernia without mention of obstruction or gangrene Surgical History Surgical History H/O vaginal hysterectomy Status post arthroscopy of left shoulder Rotator cuff repair Family History Family History Sibling Cerebrovascular accident Family history of diabetes mellitus in first degree relative Family history of heart disease in male family member before age 55 Family history of elevated blood lipids Family history of cardiovascular disease Family history of coronary artery disease Mother Family history of diabetes mellitus in first degree relative Family history of heart disease in male family member before age 55 Diabetes mellitus, Onset Age: 56 Family history of cardiovascular disease, Onset Age: 56 Family history of coronary artery disease, Onset Age: 56 Father Family history of heart disease in male family member before age 55 Diabetes mellitus, Onset Age: 79 Family history of cardiovascular disease, Onset Age: 79 Family history of coronary artery disease, Onset Age: 79 Grandparent Family history of cardiovascular disease Other Family history of osteoporosis Hypertension Social History Social History Social History: She drinks 1 cup of coffee a day. She rarely drinks soda. Code status: Full code Surrogate decision maker: Smoking packs per day: 0.5 Smoking cigarettes per day: 10.0 Years smoked: 10 Smoking pack-years: 5.00 Smoking status: Former smoker Tobacco type: cigarettes Smoking end date: 03/18/94 Alcohol intake: current Drinks per week: 1 Alcohol use details: 2/ MONTH Substance use: never Substance use type: does not use Do You Feel Safe in your Home?: Yes Lack of T
--- NOTE | 2023-03-29 11:50 | W.PM.PROC2 ---
Procedure Note - Detailed Date of Procedure 03/29/23 Pre-op Diagnosis Left Renal Stone Post-op Diagnosis Same Procedure Performed Left ESWL Surgeon Toan Estes MD Anesthesia General Description of Procedure The patient was brought to the operative suite where she was placed in the supine position on the Dornier lithotripsy table. The focal point of the lithotripter was placed at a 13mm left renal pelvic calculus. A total of 2500 shocks were delivered at a power setting of 4. There appeared to be good fragmentation of the stone. The patient tolerated the procedure well and was taken to the recovery room in good condition. Drains No Packing No Pathology None sent Complications No immediate complications Condition Stable Disposition PACU
[2023-03-29 12:34] LABS: Glucose Point of Care 106 mg/dl (65-105)
[2023-03-29] MEDS: LACTATED RINGERS 1,000 ML 30 ML IV CONT ×2 (12:35→12:38)
[2023-03-29] MEDS: fentaNYL CITRATE INJ (*CRX) 100 MCG/2 ML VIAL 25 MCG IV PUSH (12:46)
[2023-03-29] MEDS: oxyCODONE HCL (*CRX) 5 MG TAB IR PO (13:55)
== END 2023-03-29 14:35 | disposition home or self-care (01) ==
PROVIDERS: PCP Family Medicine; Visit Provider Urology
PROC: (CPT 50590; principal; 2023-03-29 12:00)
DX: N20.2 Calculus of kidney with calculus of ureter (principal); E78.2 Mixed hyperlipidemia; J45.909 Unspecified asthma, uncomplicated; F32.A Depression, unspecified; E66.9 Obesity, unspecified; Z68.31 Body mass index [BMI] 31.0-31.9, adult; Z87.891 Personal history of nicotine dependence; Z79.51 Long term (current) use of inhaled steroids; Z79.85 Long-term (current) use of injectable non-insulin antidiabetic drugs; Z79.84 Long term (current) use of oral hypoglycemic drugs
CPT/HCPCS: 50590; 36415; 74018; 82948; 84295; 85610; 85730; 87086; 87088; A9270; J1100; J2250; J2405; J2704; J3010; J7120

== ENCOUNTER 2023-04-12 09:29 | Outpatient (CLI) | payer OTHER, SELFPAY ==
--- NOTE | ~2023-04-12 | XR_ITS ---
XR abdomen/kub 1V 04/12/2023 09:51 Indication: Renal stones Procedure: KUB Comparison: Comparison to multiple prior studies sequentially, with oldest reviewed study dated 04/06. Findings: There are stable bilateral nephrolithiasis. Largest stones in the upper pole of the left ki dney. There is a left internal ureteral stent in expected position. Bowel gas pattern nonobstructive with moderate colonic fecal loading. Impression: 1: Bilateral nephrolithiasis. Reviewed, dictated and finalized at location B. TRUCK DRIVER Impression: 1: Bilateral nephrolithiasis.
== END 2023-04-12 09:30 | disposition home or self-care (01) ==
LOC: ANHIMG 09:32
PROVIDERS: PCP Family Medicine; Visit Provider Urology
DX: N20.0 Calculus of kidney (principal)
CPT/HCPCS: 74018

== ENCOUNTER 2023-04-26 15:08 | Observation (INO) | payer OTHER, SELFPAY ==
[2023-04-26] VITALS (23 sets, daily range): BP systolic 100–148; BP diastolic 58–83; PULSE 88–124; RESP 12–26; TEMP 36.7–37.1; O2SAT 90–97; BMI 33.3
--- NOTE | ~2023-04-26 | XR_ITS ---
EXAMINATION: XR abdomen/kub 1V DATE: 04/26/2023 18:35 INDICATION: Left ureteral stone. TECHNIQUE: A supine view of the abdomen on 2 radiographs was obtained. COMPARISON: CT abdomen and pelvis 04/26/2023 FINDINGS: There are no dilated loops of bowel. There are multiple stones in the kidneys measuring up to 10 mm on the left. There is a 10 x 5 mm stone in proximal left ureter. There are phleboliths in th e pelvis. IMPRESSION: 1. 10 x 5 mm stone in proximal left ureter. 2. Bilateral kidney stones. Reviewed, dictated and finalized at location E. TYPESETTER MONITOR
--- NOTE | ~2023-04-26 | CT_ITS ---
EXAMINATION: CT abdomen pelvis wo con DATE: 04/26/2023 17:12 INDICATION: Left flank pain. TECHNIQUE: Computed tomography (CT) of the abdomen and pelvis was performed without intravenous contr ast. Automated exposure control and iterative reconstruction technique were employed. The dose-length product was 357.63 mGy-cm. COMPARISON: CT abdomen and pelvis 02/28/2023 FINDINGS: The visualized portions of the lung bases demonstrate mild atelectasis. No pleural effusion . The heart size is normal. There are coronary artery calcifications. No pericardial effusion. The li chel is normal. The gallbladder is distended, likely secondary to fasting. Calcifications in the splee n are consistent with old granulomatous disease. The pancreas and adrenal glands are normal. There is cortical thinning of the kidneys. There are multiple stones in right kidney measuring up to 5 mm. Th ere are approximately 6 stones in left kidney measuring up to 8 mm. There is moderate left hydronephr osis. There is an 8 mm stone in proximal left ureter. There is diverticulosis of the colon without ev idence of diverticulitis. The appendix is normal. Aortic atherosclerosis is noted. There are no patho logically enlarged lymph nodes. There is no free intraperitoneal fluid. There is lumbar dextroscolios is and severe spondylosis. IMPRESSION: 1. 8 mm stone in proximal left ureter with moderate left hydronephrosis. 2. Bilateral nonobstructing kidney stones. Reviewed, dictated and finalized at location E. GHT BOOKER
--- NOTE | ~2023-04-26 | XR_ITS ---
EXAMINATION: XR retrograde pyelo w/stent LT INDICATION: Left ureteral stone TECHNIQUE: 26 intraoperative fluoroscopic images are submitted for review. Total fluoroscopic time is 26.7 seconds. COMPARISON: KUB from yesterday FINDINGS: There is moderate left hydronephrosis. Fluoroscopic images demonstrate placement of a left internal ureteral stent in expected position. Please refer to procedure note for full details. IMPRESSION: 1. Please refer to procedure note for full details. Reviewed, dictated and finalized at location F. TBAND SEPARATOR
[2023-04-26 15:50] LABS: Basophils Percent Auto 0.4 % (0.2-1.2); Eosinophils Percent Auto 0.4 % (0-4.4); Hematocrit 44.3 % (37.0-47.0); Hemoglobin 14.7 g/dL (12.0-15.0); Immature Granulocyte Absolute 0.03 K/mm3 (0.00-0.031); Immature Granulocyte Percent A 0.3 % (0-0.5); Lymphocytes Absolute Auto 1.55 K/mm3 (0.9-3.2); Lymphocytes Percent Auto 15.7 % (18.3-44.2); Mean Corpuscular HGB Conc 33.2 g/dl (32-36); Mean Corpuscular Hemoglobin 30.5 pg (26-34); Mean Corpuscular Volume 91.9 fl (80-100); Mean Platelet Volume 10.7 fl (7.4-10.4); Monocytes Absolute Auto 0.8 K/mm3 (0.1-0.6); Monocytes Percent Auto 8.2 % (2.6-8.5); Neutrophils Absolute Auto 7.4 K/mm3 (1.3-6.7); Platelet Count Result 307 k/mm3 (150-375); Red Blood Count 4.82 M/mm3 (4.2-5.4); Red Cell Distribution Width 12.3 % (11.5-14.5); White Blood Count 9.9 K/mm3 (4.5-10.0)
[2023-04-26 15:53] LABS: Appearance Urine Cloudy (Clear); Bacteria Urine 4+ /hpf; Bilirubin Urine Negative (Negative); Blood Urine 1+ (Negative); Color Urine Yellow (Yellow); Glucose Urine UA Negative (Negative); Ketones Urine Negative (Negative); Leukocyte Esterase Ur 3+ LEU/UL (Negative); Nitrate Urine Negative (Negative); Protein Urine 2+ mg/dL (Negative); RBC Urine 0-2 /hpf (0-2); Specific Grav Ur 1.016 (1.001-1.035); Squamous Epithelial Cell Urine None seen /hpf (Few); WBC Urine >100 /hpf; pH Urine 7.5 (5.0-9.0)
[2023-04-26 16:03] LABS: Alanine Aminotransferase 18 U/L (6-35); Albumin Level 4.1 g/dL (3.5-5.1); Alkaline Phosphatase 70 U/L (38-126); Anion Gap 8 mmol/L (8-16); Aspartate Amino Transferase 31 U/L (14-36); Bilirubin,Total 0.8 mg/dL (0.2-1.3); Blood Urea Nitrogen 10 mg/dL (7-17); Calcium 9.1 mg/dL (8.4-10.2); Carbon Dioxide 26 mmol/L (22-30); Chloride 102 mmol/L (98-107); Estimated CRCL calculation 58 ml/min; Estimated Glomerular Filt Rate > 60; Glucose 155 mg/dL (65-110); Sodium 136 mmol/L (137-145)
[2023-04-26 16:09] LABS: Add Urine Microscopic? YES
--- NOTE | 2023-04-26 17:48 | ED.FEMALEGU ---
HPI - Female Genitourinary General Chief complaint: Urogenital-Female <MONROE Ross Last Filed: 04/27/23 02:26> Stated complaint: Kidney stone <MONROE Ross Last Filed: 04/27/23 02:26> Time Seen by Provider: 04/26/23 16:57 <MONROE Ross Last Filed: 04/27/23 02:26> Source: patient and old records reviewed <MONROE Ross Last Filed: 04/27/23 02:26> Mode of arrival: ambulatory <MONROE Ross Last Filed: 04/27/23 02:26> Limitations: no limitations <MONROE Ross Last Filed: 04/27/23 02:26> History of Present Illness HPI Narrative: Patient is a 62-year-old female, with past medical history of recurrent kidney stones, who presents to ED with left flank pain. Patient reports pain began yesterday and has been progressively worsening since then. [place] similar to previous kidney stones. Has required lithotripsy and ureteral stenting in the past. Does radiate around slightly to left-sided abdomen. She reports nausea and vomiting today, which also occurred in the ED waiting room. denies urinary symptoms including dysuria, hematuria, but notes she does not usually experience urinary symptoms with her kidney stones. Denies fevers. Does have hx of septic stone. Patient also reports having a diffuse urticarial rash that began around 1:00 p.m. today. Rash has been worsening since onset. She has had similar reactions in the past (over the last 6 years) and required Benadryl, but has no known allergies. No new medications, laundry detergent, soaps. Never had allergy testing. Upon my evaluation, patient reporting some difficulty swallowing and breathing, frequent coughing on exam. Has never required epinephrine in the past. <MONROE Ross Last Filed: 04/27/23 02:26> Related Data Home medications: Home Medications Medication Instructions Recorded Confirmed trazodone 100 mg tablet 200 mg PO HS 02/28/23 04/26/23 <Ada Enciso PA-C - Last Filed: 04/27/23 02:26> Allergies/Adverse reactions: Allergies Allergy/AdvReac Type Severity Reaction Status Date / Time ceftriaxone [From Rocephin] Allergy Hives Verified 04/23/23 10:56 <Ada Enciso PA-C - Last Filed: 04/27/23 02:26> Review of Systems Review of Systems: CONSTITUTIONAL: Denies fever, chills, or sweats. CARDIOVASCULAR: See HPI RESPIRATORY: See HPI GASTROINTESTINAL: See HPI GENITOURINARY: Denies dysuria or hematuria. SKIN: See HPI MUSCULOSKELETAL: See HPI NEUROLOGIC: Denies headache, dizziness, numbness, or weakness. <Ada Enciso PA-C - Last Filed: 04/27/23 02:26> All systems reviewed & are unremarkable except as noted in HPI and below <Ada Enciso PA-C - Last Filed: 04/27/23 02:26> [facility] Past Medical History Medical History: Medical History Arthritis Asthma Bilateral kidney stones Depressive disorder, not elsewhere classified Mixed hyperlipidemia Obesity (BMI 30.0-34.9) RBBB Right cervical radiculopathy Umbilical hernia without mention of obstruction or gangrene <Ada Enciso PA-C - Last Filed: 04/27/23 02:26> Surgical History Surgical History: Surgical History H/O lithotripsy H/O vaginal hysterectomy Status post arthroscopy of left shoulder Rotator cuff repair <Ada Enciso PA-C - Last Filed: 04/27/23 02:26> Family History Family History: Family History Sibling Cerebrovascular accident Family history of diabetes mellitus in first degree relative Family history of heart disease in male family member before age 55 Family history of elevated blood lipids Family history of cardiovascular disease Family history of coronary artery disease Moth
[2023-04-26] MEDS: MORPHINE SULFATE (*CRX) 4 MG/ML INJ IV PUSH (17:49)
[2023-04-26] MEDS: diphenhydrAMINE HCl INJ 50 MG/ML VIAL IV PUSH (17:52)
[2023-04-26] MEDS: EPINEPHrine HCL INJ 1 MG/ML AMPUL 0.3 MG IM (17:52)
[2023-04-26] MEDS: ONDANSETRON INJ 4 MG/2 ML VIAL IV PUSH (17:53)
[2023-04-26] MEDS: FAMOTIDINE 20 MG/2 ML VIAL IV PUSH (17:53)
[2023-04-26] MEDS: methylPREDNISolone SOD SUCC 125 MG VIAL IV PUSH (17:53)
[2023-04-26] MEDS: levoFLOXacin 750 MG/D5W 150 ML 750 MG/150 ML BAG 100 MG IVPB (17:53)
[2023-04-26] MEDS: SODIUM CHLORIDE 0.9% IV 1,000 ML 999 ML IV CONT ×2 (17:55→17:56)
[2023-04-26 18:54] LABS: Lactic Acid Reflex 1.7 mmol/L (0.7-2.0)
--- NOTE | 2023-04-26 19:42 | PM.IMHP ---
H&P: HPI History of Present Illness Date/Time: 04/26/23 19:42 Chief Complaint: Flank pain Narrative: This is a 62-year-old female with past medical history significant for kidney stones patient presented to the emergency room with flank pain for 2 days she was found to have an 8 mm stone in emergency room patient was also found to have a diffuse urticarial rash spread out in her limbs trunk and face for which she required Benadryl epinephrine. Patient is been admitted for further evaluation management and treatment. EXAMINATION: CT abdomen pelvis wo con DATE: 04/26/2023 17:12 INDICATION: Left flank pain. TECHNIQUE: Computed tomography (CT) of the abdomen and pelvis was performed without intravenous contrast. Automated exposure control and iterative reconstruction technique were employed. The dose-length product was 357.63 mGy-cm. COMPARISON: CT abdomen and pelvis 02/28/2023 FINDINGS: The visualized portions of the lung bases demonstrate mild atelectasis. No pleural effusion. The heart size is normal. There are coronary artery calcifications. No pericardial effusion. The liver is normal. The gallbladder is distended, likely secondary to fasting. Calcifications in the spleen are consistent with old granulomatous disease. The pancreas and adrenal glands are normal. There is cortical thinning of the kidneys. There are multiple stones in right kidney measuring up to 5 mm. There are approximately 6 stones in left kidney measuring up to 8 mm. There is moderate left hydronephrosis. There is an 8 mm stone in proximal left ureter. There is diverticulosis of the colon without evidence of diverticulitis. The appendix is normal. Aortic atherosclerosis is noted. There are no pathologically enlarged lymph nodes. There is no free intraperitoneal fluid. There is lumbar dextroscoliosis and severe spondylosis. IMPRESSION: 1. 8 mm stone in proximal left ureter with moderate left hydronephrosis. 2. Bilateral nonobstructing kidney stones. Review of Systems Review of Systems: Flank pain, generalized rash Constitutional: Constitutional: Denies chills, Denies fatigue, Denies fever(s), Denies malaise and Denies night sweats Eyes: Eyes: Denies change in vision ENT: Denies dysphagia and Denies odynophagia Cardiovascular: Cardiovascular: Denies chest pain, Denies radiating jaw, neck or arm pain and Denies palpitations Respiratory: Respiratory: Denies cough, Reports dyspnea and Denies wheezing Gastrointestinal: Gastrointestinal: Denies abdominal pain, Denies dyspepsia, Denies heartburn, Denies diarrhea, Denies nausea and Denies vomiting Genitourinary: Genitourinary: Denies dysuria and Reports flank pain Musculoskeletal: Musculoskeletal: Denies back pain, Denies arthralgias and Denies muscle weakness Integumentary/Breasts: Skin/Breast: Reports rash Neurologic: Denies focal weakness and Denies Sensory deficit (Neuro) Psychiatric: Psychiatric: Reports no additional psychiatric complaints and Reports as per HPI Endocrine: Endocrine: Denies cold intolerance, Denies fatigue, Denies flushing, Denies heat intolerance, Denies polyphagia, Denies polydipsia and Denies palpitations Hematologic/Lymphatic: Hematologic/Lymphatic: Reports no additional hematologic/lymphatic complaints and Reports as per HPI Allergic/Immunologic: Allergic/Immunologic: Reports no additional allergic/immunologic complaints and Reports as per HPI PMFSH Past Medical History Medical History Arthritis Asthma Bilateral kidney stones Depressive disorder, not elsewhere classified Mixed hyperlipidemia Obesity (BMI 30.0-34.9) RBBB Right cervical radiculopathy Umbilical hernia without mention of obstruction or gangrene Surgical History Surgical History H/O lithotripsy H/O vaginal hysterectomy Status post arthroscopy of left shoulder Rotator cuff repair
--- NOTE | 2023-04-26 19:44 | PC.NURSE ---
Assume care of pt. Report from RUDDY Zuniga. Pt resting quietly per cart in nad at this time.
--- NOTE | 2023-04-26 20:16 | PC.NURSE ---
Strips printed and placed on chart.
[2023-04-26] MEDS: HYDROmorphone HCL INJ (*CRX) 1 MG/ML SYR IV PUSH ×2 (20:50→23:06)
[2023-04-26] MEDS: SODIUM CHLORIDE 0.9% IV 1,000 ML 100 ML IV CONT (20:50)
[2023-04-26] MEDS: diphenhydrAMINE HCl INJ 50 MG/ML VIAL (20:56)
--- NOTE | 2023-04-26 21:55 | PC.NURSE ---
Pt Ada, attempt to reach admitting physician x 2 for additional orders for reaction without response. Ada at bedside to re-eval pt. Spoke with Dudley who is ok with taking pt who is hemodynamically stable and no resp issues, which is pt. Pt does state she is feeling better at this time.
--- NOTE | 2023-04-26 22:32 | PC.NURSE ---
Pt is A&O x4, able to make needs known, answers all questions appropriately. Pt denies pain at this time, she states that when it flares up, it easily gets up to a 10. Pt was instructed to call RN if the pain reaches 5. Pt was educated on pain management, medications, hospital environment, use of call light, admission packet reviewed and all questions answered. Medication reconciliation completed bedside with the pt. Pt has a rash that covers most of her body, it is being treated. Pt stated that she's had it in the past and it comes and goes. All questions answered, will continue to monitor.
[2023-04-26] MEDS: diphenhydrAMINE HCl INJ 50 MG/ML VIAL 25 MG IV PUSH (22:34)
[2023-04-27] VITALS (18 sets, daily range): BP systolic 95–151; BP diastolic 59–78; PULSE 70–89; RESP 11–18; TEMP 36.4–36.8; O2SAT 94–100
[2023-04-27] MEDS: diphenhydrAMINE HCl INJ 50 MG/ML VIAL IV PUSH (04:22)
[2023-04-27] MEDS: SODIUM CHLORIDE 0.9% IV 1,000 ML 100 ML IV CONT (06:27)
--- NOTE | 2023-04-27 07:20 | WPDANESEPP ---
Anes - Eval Pre Procedure Procedure: Operation Date: 04/27/23 07:30 Proposed Procedures p Cystoscopy, Left Stent Placement(Left) - Camilla Arora MD Date/Time: 04/27/23 07:20 Surgeon: Ulysses Pre Op Diagnosis: l prox ureteral stone, uti, anaphylaxis Patient Data Age: 62 Gender: F Height: 1.63 m Weight: 87.9 kg Last Vital Signs Temp 97.7 F 04/27/23 04:09 Pulse 85 04/27/23 04:09 Resp 16 04/27/23 04:09 BP 95/72 L 04/27/23 04:09 Pulse Ox 96 04/27/23 04:09 O2 Del Method Room Air 04/26/23 22:14 Allergies Allergy/AdvReac Type Severity Reaction Status Date / Time ceftriaxone [From Rocepwyn] Allergy Hives Verified 04/23/23 10:56 Home Medications Medication Instructions Recorded Confirmed Type albuterol sulfate 90 mcg/actuation 2 puff inhalation Q4H PRN 05/19/21 04/26/23 Rx aerosol inhaler (ProAir HFA) shortness of breath or wheezing #8.5 grams metformin 500 mg tablet 500 mg PO BIDWMEAL #180 tabs 12/17/22 04/26/23 Rx diazepam 5 mg tablet 5 mg PO TID PRN muscle spasm #30 12/20/22 04/26/23 Rx tabs trazodone 100 mg tablet 200 mg PO HS 02/28/23 04/26/23 History bupropion HCl 300 mg 24 hr tablet, 300 mg PO QAM #90 tabs 04/26/23 04/26/23 Rx extended release (Wellbutrin XL) Laboratory Tests 04/26/23 04/26/23 15:41 18:25 WBC 9.9 K/mm3 (4.5-10.0) RBC 4.82 M/mm3 (4.2-5.4) Hgb 14.7 D g/dL (12.0-15.0) Hct 44.3 % (37.0-47.0) MCV 91.9 fl (80-100) MCH 30.5 pg (26-34) MCHC 33.2 g/dl (32-36) RDW 12.3 % (11.5-14.5) Plt Count 307 D k/mm3 (150-375) MPV 10.7 H fl (7.4-10.4) Immature Gran % (Auto) 0.3 % (0-0.5) Neut % (Auto) 75.0 H % (45.5-73.1) Lymph % (Auto) 15.7 L % (18.3-44.2) [place] % (Auto) 8.2 % (2.6-8.5) Eos % (Auto) 0.4 % (0-4.4) Baso % (Auto) 0.4 % (0.2-1.2) Lymph # (Auto) 1.55 K/mm3 (0.9-3.2) [place] # (Auto) 0.8 H K/mm3 (0.1-0.6) Eos # (Auto) 0.0 K/mm3 (0-0.3) Baso # (Auto) 0.0 K/mm3 (0.0-0.1) Abs Immat Gran (auto) 0.03 K/mm3 (0.00-0.031) Absolute Neuts (auto) 7.4 H K/mm3 (1.3-6.7) Absolute Nucleated RBC 0.0 K/mm3 (0.0-0.012) Nucleated RBC % 0.0 % (0.0-0.2) Sodium 136 L mmol/L (137-145) Potassium 4.0 mmol/L (3.4-5.0) Chloride 102 mmol/L (98-107) Carbon Dioxide 26 mmol/L (22-30) Anion Gap 8 mmol/L (8-16) BUN 10 mg/dL (7-17) Creatinine 0.90 mg/dL (0.7-1.0) Estim Creat Clear Calc 58 ml/min Estimated GFR > 60 (59 - ) Glucose 155 H mg/dL (65-110) Lactic Acid 1.7 mmol/L (0.7-2.0) Calcium 9.1 mg/dL (8.4-10.2) Total Bilirubin 0.8 mg/dL (0.2-1.3) AST 31 U/L (14-36) ALT 18 U/L (6-35) Alkaline Phosphatase 70 U/L (38-126) Total Protein 7.0 g/dL (6.3-8.2) Albumin 4.1 g/dL (3.5-5.1) Urine Color Yellow (Yellow) Urine Appearance Cloudy H (Clear) Urine pH 7.5 (5.0-9.0) Ur Specific [place] 1.016 (1.001-1.035) Urine Protein 2+ H mg/dL (Negative) Urine Glucose (UA) Negative mg/dL (Negative) Urine Ketones Negative mg/dL (Negative) Ur Blood (Man) 1+ H (Negative) Urine Nitrate Negative (Negative) Urine Bilirubin Negative (Negative) Urine Urobilinogen 1.0 mg/dL (<2.0) Leukocyte Esterase Rfl 3+ H FABY/UL (Negative) Urine RBC 0-2 /hpf (0-2) Urine WBC >100 H /hpf Ur Squamous Epith Cells None seen /hpf (Few) Urine Bacteria 4+ H /hpf Urine Casts 3-5 ECG: SR 64, IRBBB Patient hx anesthesia problems: none Family hx anesthesia problems: none Results Review: All pre-operative results and documents have been reviewed as part of the pre-operative evaluation. PMFS
--- NOTE | 2023-04-27 07:28 | WPDANESEPPF ---
Anes - Initial Pre Proc Eval Procedure: Operation Date: 04/27/23 07:30 Proposed Procedures p Cystoscopy, Left Stent Placement(Left) - Camilla Arora MD Date/Time: 04/27/23 07:28 Surgeon: Tanmay Peoples MD Pre Op Diagnosis: l prox ureteral stone, uti, anaphylaxis Patient Data Age: 62 Gender: F Height: 1.63 m Weight: 87.9 kg Last Vital Signs Temp 36.5 C 04/27/23 04:09 Pulse 85 04/27/23 04:09 Resp 16 04/27/23 04:09 BP 95/72 L 04/27/23 04:09 Pulse Ox 96 04/27/23 04:09 O2 Del Method Room Air 04/26/23 22:14 Allergies Allergy/AdvReac Type Severity Reaction Status Date / Time ceftriaxone [From Rocephin] Allergy Hives Verified 04/23/23 10:56 Home Medications Medication Instructions Recorded Confirmed Type albuterol sulfate 90 mcg/actuation 2 puff inhalation Q4H PRN 05/19/21 04/26/23 Rx aerosol inhaler (ProAir HFA) shortness of breath or wheezing #8.5 grams metformin 500 mg tablet 500 mg PO BIDWMEAL #180 tabs 12/17/22 04/26/23 Rx diazepam 5 mg tablet 5 mg PO TID PRN muscle spasm #30 12/20/22 04/26/23 Rx tabs trazodone 100 mg tablet 200 mg PO HS 02/28/23 04/26/23 History bupropion HCl 300 mg 24 hr tablet, 300 mg PO QAM #90 tabs 04/26/23 04/26/23 Rx extended release (Wellbutrin XL) Laboratory Tests 04/26/23 04/26/23 15:41 18:25 WBC 9.9 K/mm3 (4.5-10.0) RBC 4.82 M/mm3 (4.2-5.4) Hgb 14.7 D g/dL (12.0-15.0) Hct 44.3 % (37.0-47.0) MCV 91.9 fl (80-100) MCH 30.5 pg (26-34) MCHC 33.2 g/dl (32-36) RDW 12.3 % (11.5-14.5) Plt Count 307 D k/mm3 (150-375) MPV 10.7 H fl (7.4-10.4) Immature Gran % (Auto) 0.3 % (0-0.5) Neut % (Auto) 75.0 H % (45.5-73.1) Lymph % (Auto) 15.7 L % (18.3-44.2) [place] % (Auto) 8.2 % (2.6-8.5) Eos % (Auto) 0.4 % (0-4.4) Baso % (Auto) 0.4 % (0.2-1.2) Lymph # (Auto) 1.55 K/mm3 (0.9-3.2) [place] # (Auto) 0.8 H K/mm3 (0.1-0.6) Eos # (Auto) 0.0 K/mm3 (0-0.3) Baso # (Auto) 0.0 K/mm3 (0.0-0.1) Abs Immat Gran (auto) 0.03 K/mm3 (0.00-0.031) Absolute Neuts (auto) 7.4 H K/mm3 (1.3-6.7) Absolute Nucleated RBC 0.0 K/mm3 (0.0-0.012) Nucleated RBC % 0.0 % (0.0-0.2) Sodium 136 L mmol/L (137-145) Potassium 4.0 mmol/L (3.4-5.0) Chloride 102 mmol/L (98-107) Carbon Dioxide 26 mmol/L (22-30) Anion Gap 8 mmol/L (8-16) BUN 10 mg/dL (7-17) Creatinine 0.90 mg/dL (0.7-1.0) Estim Creat Clear Calc 58 ml/min Estimated GFR > 60 (59 - ) Glucose 155 H mg/dL (65-110) Lactic Acid 1.7 mmol/L (0.7-2.0) Calcium 9.1 mg/dL (8.4-10.2) Total Bilirubin 0.8 mg/dL (0.2-1.3) AST 31 U/L (14-36) ALT 18 U/L (6-35) Alkaline Phosphatase 70 U/L (38-126) Total Protein 7.0 g/dL (6.3-8.2) Albumin 4.1 g/dL (3.5-5.1) Urine Color Yellow (Yellow) Urine Appearance Cloudy H (Clear) Urine pH 7.5 (5.0-9.0) Ur Specific [place] 1.016 (1.001-1.035) Urine Protein 2+ H mg/dL (Negative) Urine Glucose (UA) Negative mg/dL (Negative) Urine Ketones Negative mg/dL (Negative) Ur Blood (Man) 1+ H (Negative) Urine Nitrate Negative (Negative) Urine Bilirubin Negative (Negative) Urine Urobilinogen 1.0 mg/dL (<2.0) Leukocyte Esterase Rfl 3+ H FABY/UL (Negative) Urine RBC 0-2 /hpf (0-2) Urine WBC >100 H /hpf Ur Squamous Epith Cells None seen /hpf (Few) Urine Bacteria 4+ H /hpf Urine Casts 3-5 Patient hx anesthesia problems: none Family hx anesthesia problems: none Results Review: All pre-operative results and documents have been reviewed as part of the pre-operative evaluation. [facility]
--- NOTE | 2023-04-27 07:28 | WPDURCON ---
Assessment and Plan Assessment and plan (1) Hydronephrosis: Qualifiers: Hydronephrosis type: unspecified Qualified Code(s): N13.30 - Unspecified hydronephrosis Code(s): N13.30 - Unspecified hydronephrosis Status: Acute (2) Ureterolithiasis: Code(s): N20.1 - Calculus of ureter Status: Acute (3) UTI (urinary tract infection): Qualifiers: Hematuria presence: with hematuria Urinary tract infection type: site unspecified Qualified Code(s): N39.0 - Urinary tract infection, site not specified; R31.9 - Hematuria, unspecified Code(s): N39.0 - Urinary tract infection, site not specified Status: Acute Plan 62 year old with obstructing left proximal ureteral stone in setting of UTI. Elects to proceed with left stent placement today with plans for definitive stone surgery with Dr Estes once infection resolves. She understands risks of the procedure including but not limited to bleeding, infection, damage to the urinary tract, stent irritation and risks of anesthesia. she elects to proceed. Continue levaquin while awaiting culture results. Will defer to hospitalist for management of her anaphylactic reaction of unknown etiology. Urology Consult Note HPI Date Seen: 04/27/23 Requesting Physician: Tanmay Peoples MD Primary Care Provider: Domenico Chen MD Consult Narrative Narrative: Tiana Singer is a 62 year old female presenting to ER with two days of left lower back pain radiating to left lower quadrant. She has had associated nausea and vomiting. No fevers, chills or dysuria. Has strong personal history of stones and had ESWL last month with Dr. Estes. CT in ER showed 8 mm left proximal stone with hydronephrosis. UA was suggestive of infection. She was started on levaquin. Of note, she had an anaphylactic reaction starting at home of unknown etiology. She received steroids and epinephrine in the ER and currently has a full body rash. Review of Systems Review of Systems: 12 point review of systems was obtained. all systems are negative other than as per HPI. [facility] Past Medical History Medical History Arthritis Asthma Bilateral kidney stones Depressive disorder, not elsewhere classified Mixed hyperlipidemia Obesity (BMI 30.0-34.9) RBBB Right cervical radiculopathy Umbilical hernia without mention of obstruction or gangrene Surgical History Surgical History H/O lithotripsy H/O vaginal hysterectomy Status post arthroscopy of left shoulder Rotator cuff repair Family History Family History Sibling Cerebrovascular accident Family history of diabetes mellitus in first degree relative Family history of heart disease in male family member before age 55 Family history of elevated blood lipids Family history of cardiovascular disease Family history of coronary artery disease Mother Family history of diabetes mellitus in first degree relative Family history of heart disease in male family member before age 55 Diabetes mellitus, Onset Age: 56 Family history of cardiovascular disease, Onset Age: 56 Family history of coronary artery disease, Onset Age: 56 Father Family history of heart disease in male family member before age 55 Diabetes mellitus, Onset Age: 79 Family history of cardiovascular disease, Onset Age: 79 Family history of coronary artery disease, Onset Age: 79 Grandparent Family history of cardiovascular disease Other Family history of osteoporosis Hypertension Social History Social History Social History: She drinks 1 cup of coffee a day. She rarely drinks soda. Code status: Full code Surrogate decision maker: Smoking packs per day: 0.5 Smoking
[2023-04-27] MEDS: LACTATED RINGERS 1,000 ML 30 ML IV CONT (07:30)
--- NOTE | 2023-04-27 07:55 | W.PM.PROC2 ---
Procedure Note - Detailed Date of Procedure 04/27/23 Pre-op Diagnosis left proximal ureteral stone with hydronephrosis and UTI Post-op Diagnosis Same Procedure Performed cystoscopy, left retrograde pyelogram and placement of a left 4.8x26 cm JJ stent Surgeon Camilla Arora MD Anesthesia General and Local Findings 8 mm left proximal stone with hydro Description of Procedure Patient was correctly identified and informed consent was obtained. She was brought to the operating room and a formal time out was performed. General anesthesia was induced via LMA. She had received intravenous antibiotics and was not due for redosing. She was placed in the dorsal lithotomy position, prepped and draped in a sterile fashion. A rigid cystoscope was inserted through the urethra into the bladder. The bladder was examined in a systematic fashion. There were no masses, tumors or trabeculations. The left UO was intubated with a sensor wire and was advanced up into the left kidney. The 8fr coaxial dilator was advanced to the level of the stone. A gentle retrograde pyelogram was performed. She was noted to have moderate left hydronephrosis. A 4.8x26 cm JJ stent was placed under a combination of fluoroscopic guidance and direct vision with a curl in the renal pelvis and another curl in the bladder. There was copious drainage of cloudy urine from the left UO after the stent was placed. The bladder was drained of its contents and 2% lidocaine jelly was instilled. She was awaken and taken to the recovery room in a stable condition. Implants 4.8x26 cm JJ stent Estimated Blood Loss 5 Complications No immediate complications Disposition PACU
[2023-04-27] MEDS: oxyCODONE/ACETAMINOPHEN (*CRX) 5-325 MG TABLET 1 TABLET PO ×3 (09:56→20:15)
[2023-04-27] MEDS: buPROPion HCL XL (24 HR) 150 MG TABCR 300 MG PO (09:57)
[2023-04-27] MEDS: FAMOTIDINE 20 MG/2 ML VIAL IV PUSH ×2 (09:57→20:14)
[2023-04-27] MEDS: predniSONE 10 MG TABLET 50 MG PO (09:57)
[2023-04-27] MEDS: diphenhydrAMINE HCl INJ 50 MG/ML VIAL 25 MG IV PUSH ×3 (11:14→21:45)
[2023-04-27] MEDS: MORPHINE SULFATE (*CRX) 4 MG/ML INJ IV PUSH ×2 (12:45→21:45)
--- NOTE | 2023-04-27 14:32 | PM.IMPN ---
Progress Note: A&P Assessment and Plan (1) Ureterolithiasis: Code(s): N20.1 - Calculus of ureter Status: Acute (2) UTI (urinary tract infection): Qualifiers: Hematuria presence: with hematuria Urinary tract infection type: site unspecified Qualified Code(s): N39.0 - Urinary tract infection, site not specified; R31.9 - Hematuria, unspecified Code(s): N39.0 - Urinary tract infection, site not specified Status: Acute (3) Anaphylaxis: Qualifiers: Encounter type: initial encounter Qualified Code(s): T78.2XXA - Anaphylactic shock, unspecified, initial encounter Code(s): T78.2XXA - Anaphylactic shock, unspecified, initial encounter Status: Acute (4) Urticaria: Code(s): L50.9 - Urticaria, unspecified Status: Acute Plan This is a 62-year-old female with a past medical history hyperlipidemia, asthma, depression, recurrent kidney stones, recurrent urticaria. She reports left flank pain 1 day prior to admission which became progressively worse. She previously required lithotripsy and stenting. She also had some nausea and vomiting. On admission she denies dysuria hematuria or other urinary symptoms. As well the patient has had recurrent breakout of urticaria. She has never had this investigated. He typically takes Benadryl and it resolved on its own. Four days prior to admission she had this happen again and it resolved after Benadryl. It returned a day prior to admission and got worse. Patient was treated for anaphylaxis in the emergency room reporting difficulty breathing and cough and itching in the throat. He was given epinephrine Solu-Medrol Benadryl and Pepcid with significant improvement of symptoms. Admitted on 04/26/2023 #Anaphylaxis -status post epinephrine Benadryl famotidine Solu-Medrol. -resolved. Has no difficulty breathing swallowing or managing secretions. No edema in the oropharynx. Continue to monitor she is on continuous pulse ox and telemetry. #Urticaria of unknown etiology -this is a recurrent issue but has never been this refractory. Usually resolves with Benadryl. I advised the patient she should have follow-up with hoister. Likely has refractory urticaria due to her current stress with the pain and ureterolithiasis. -for now continue prednisone daily, famotidine, Benadryl Q 4 hours p.r.n.. -she has improving rash although some itching still. #Complicated urinary tract infection -complicated due to the left kidney stone. She is currently on levofloxacin and we are awaiting urine cultures. Due to her likely needing prednisone we may have to switch levofloxacin to another agent depending on the sensitivities. #Left Ureterolithiasis and hydronephrosis -status post cystoscopy left retrograde pyelogram and placement of a left JJ stent on 04/27/2023. Appreciate urology recommendations. Follow up outpatient for definitive therapy. -pain is still somewhat uncontrolled. Continuous pulse ox with pain regimen instituted. FEN: Saline lock IV. Regular diet. GI prophylaxis: Famotidine DVT prophylaxis: SCDs Lines: Peripheral IV Code Status: Full code Dispo: Stable Subjective Date/time seen: 04/27/23 14:32 Interval history: No acute overnight events. Patient believes her pain is better but it is somewhat uncontrolled, as high as a 7. She has not had any urinary urgency, bladder pain, pain on urination, foul smell of urine. She reports itching which is greatly relieved by Benadryl. Review of Systems Review of Systems: All systems reviewed & are unremarkable except as noted in HPI and below (Subjective) Exam Const: General: comfortable and no acute distress Other: A&O x3 Neck: Neck: supple Resp: Effort & Inspection: normal respiratory effort Auscultation: clear to auscultation bilaterally Cardio: Rate: regular rate Rhythm: regular rhythm GI: GI Palp: Yes Soft to palpation and No Tenderness to palp
[2023-04-27] MEDS: levoFLOXacin 250 MG/D5W 50 ML 250 MG/50 ML BAG 50 MG IVPB (18:20)
[2023-04-27] MEDS: traZODone HCL 50 MG TABLET 200 MG PO (20:14)
[2023-04-27 21:10] LABS: Influenza A QL RT-PCR Positive (Negative); Influenza B QL RT-PCR Negative (Negative); RSV RNA, RT-PCR Negative (Negative); SARS-CoV-2 RNA PCR Negative (Negative)
[2023-04-28] VITALS: PULSE 72
[2023-04-28 00:16] VITALS: BP 110/56; PULSE 71; RESP 14; TEMP 36.7; O2SAT 96
[2023-04-28 04:00] VITALS: PULSE 67
[2023-04-28] MEDS: diphenhydrAMINE HCl INJ 50 MG/ML VIAL 25 MG IV PUSH ×3 (05:42→13:15)
[2023-04-28 05:44] VITALS: BP 146/77; PULSE 85; RESP 18; TEMP 36.6; O2SAT 97
[2023-04-28 05:50] LABS: Basophils Percent Auto 0.1 % (0.2-1.2); Hematocrit 33.7 % (37.0-47.0); Hemoglobin 10.8 g/dL (12.0-15.0); Immature Granulocyte Absolute 0.04 K/mm3 (0.00-0.031); Immature Granulocyte Percent A 0.4 % (0-0.5); Lymphocytes Percent Auto 10.6 % (18.3-44.2); Mean Corpuscular Hemoglobin 30.4 pg (26-34); Mean Corpuscular Volume 94.9 fl (80-100); Mean Platelet Volume 10.7 fl (7.4-10.4); Monocytes Absolute Auto 0.8 K/mm3 (0.1-0.6); Monocytes Percent Auto 8.3 % (2.6-8.5); Neutrophils Absolute Auto 7.6 K/mm3 (1.3-6.7); Neutrophils Percent Auto 80.6 % (45.5-73.1); Platelet Count Result 225 k/mm3 (150-375); Red Blood Count 3.55 M/mm3 (4.2-5.4); Red Cell Distribution Width 12.7 % (11.5-14.5); White Blood Count 9.5 K/mm3 (4.5-10.0)
[2023-04-28 06:19] LABS: Anion Gap 1 mmol/L (8-16); Blood Urea Nitrogen 16 mg/dL (7-17); Calcium 8.5 mg/dL (8.4-10.2); Carbon Dioxide 26 mmol/L (22-30); Chloride 109 mmol/L (98-107); Estimated CRCL calculation 76 ml/min; Estimated Glomerular Filt Rate > 60; Glucose 118 mg/dL (65-110); Potassium 4.2 mmol/L (3.4-5.0); Sodium 136 mmol/L (137-145)
[2023-04-28 08:00] VITALS: PULSE 69
[2023-04-28] MEDS: predniSONE 10 MG TABLET 50 MG PO (09:44)
[2023-04-28] MEDS: oxyCODONE/ACETAMINOPHEN (*CRX) 5-325 MG TABLET 1 TABLET PO (09:44)
[2023-04-28] MEDS: buPROPion HCL XL (24 HR) 150 MG TABCR 300 MG PO (09:45)
[2023-04-28] MEDS: FAMOTIDINE 20 MG/2 ML VIAL IV PUSH (09:45)
--- NOTE | 2023-04-28 10:20 | WPDUROPN2 ---
Progress Note: A&P Assessment and Plan (1) UTI (urinary tract infection): Qualifiers: Hematuria presence: with hematuria Urinary tract infection type: site unspecified Qualified Code(s): N39.0 - Urinary tract infection, site not specified; R31.9 - Hematuria, unspecified Code(s): N39.0 - Urinary tract infection, site not specified Status: Acute (2) Hydronephrosis: Qualifiers: Hydronephrosis type: unspecified Qualified Code(s): N13.30 - Unspecified hydronephrosis Code(s): N13.30 - Unspecified hydronephrosis Status: Acute (3) Ureterolithiasis: Code(s): N20.1 - Calculus of ureter Status: Acute Plan POD#1 s/p L stent placement - pain controlled and Cr at baseline. - urine culture with Kleb, no macrobid. Currently on levaquin. OK to transition to PO abx for discharge. Would recommend avoiding fluoroquinolones since she will need a prednisone taper and want to minimize tendon issues/rupture. Reasonable to send her home on bactrim to treat UTI - OK for d/c from perspective. She will f/u with Dr. Estes to schedule definitive stone surgery. Subjective Subjective Date/Time Seen: 04/28/23 10:20 Interval history: Doing better. Rash is better. Pain has improved- now just having stent related pain. Review of Systems Review of Systems: 12 point review of systems was obtained. all systems are negative other than as per HPI. Exam Narrative: 62 year old female in NAD, A&Ox3 Const: General: comfortable and no acute distress HENMT: Face/Nose/Sinus: Normal nares present Eyes: General: appearance normal, both eyes and all related structures Neck: Neck: supple Resp: Effort & Inspection: normal respiratory effort Cardio: Rate: regular rate GI: GI Palp: Yes Soft to palpation : Other: mild L CVAT Skin: Rashes: rashes noted Other: rash has improved Neuro: General: gait normal Speech: normal speech Extrem: General: normal to inspection Objective Data Vital Signs Vital Signs: Vital Signs - 24 hr 04/27/23 10:45 04/27/23 14:12 04/27/23 18:32 Temperature 36.6 C 36.4 C 36.4 C Pulse Rate 77 74 78 Respiratory Rate 16 16 16 Blood Pressure 124/76 106/67 123/64 Pulse Oximetry 96 97 99 Oxygen Delivery 04/27/23 12:04 04/27/23 16:00 04/27/23 19:47 Temperature 36.8 C Pulse Rate 82 79 82 Respiratory Rate 16 Blood Pressure 118/65 Pulse Oximetry 97 Oxygen Delivery 04/27/23 20:00 04/28/23 00:16 04/27/23 20:00 Temperature 36.7 C Pulse Rate 70 71 79 Respiratory Rate 18 14 Blood Pressure 110/56 L Pulse Oximetry 98 96 Oxygen Delivery Room Air 04/28/23 00:00 04/28/23 04:00 04/28/23 05:44 Temperature 36.6 C Pulse Rate 72 67 85 Respiratory Rate 18 Blood Pressure 146/77 H Pulse Oximetry 97 Oxygen Delivery Intake/Output Intake/Output: Intake & Output 04/25/23 04/26/23 04/27/23 04/28/23 23:59 23:59 23:59 23:59 Intake Total 2150 2090 450 Output Total 1800 1000 Balance 2150 290 -550 Meds/Results Medications: Active Medications Generic Name Dose Route Start Last Admin Trade Name Freq PRN Reason Stop Dose Admin Albuterol 2 puff 04/27/23 02:29 Albuterol Sulfate (*Sp) Aerosol 1 Puff INHALATION Q4H PRN shortness of breath or wheezing Bupropion HCl 300 mg 04/27/23 09:00 04/28/23 09:45 Bupropion Hcl Xl (24 Hr) 150 Mg Tabcr PO 300 mg QAM NAVNEET Administration Calamine 1 applic 04/27/23 18:09 Calamine Lotion 120 Ml Bottle TOPICAL QAM PRN Itching Diazepam 5 mg 04/27/23 02:29 Diazepam (*Crx) 5 Mg Tablet PO TID PRN muscle spasm Diphenhydramine HCl 25 mg 04/27/23 14:32 04/28/23 09:45 Diphenhydramine Hcl Inj 50 Mg/Ml Vial IV PUSH 25 mg Q4H PRN Administration Itching Famotidine 20 mg 04/27/23 09:00 04/28/23 09:45 Famotidine 20 Mg/2 Ml Vial IV PUSH 20 mg Q12HR [facility] Administratio
[2023-04-28 12:00] VITALS: PULSE 64
--- NOTE | 2023-04-28 12:31 | PM.DS ---
DS: Admitting Diagnosis Discharge Date April 28, 2023 Admitting Diagnosis Flank pain DS: Discharge Diagnosis Discharge Diagnosis (1) Ureterolithiasis: Code(s): N20.1 - Calculus of ureter Status: Acute (2) UTI (urinary tract infection): Qualifiers: Hematuria presence: with hematuria Urinary tract infection type: site unspecified Qualified Code(s): N39.0 - Urinary tract infection, site not specified; R31.9 - Hematuria, unspecified Code(s): N39.0 - Urinary tract infection, site not specified Status: Acute (3) Hydronephrosis: Qualifiers: Hydronephrosis type: unspecified Qualified Code(s): N13.30 - Unspecified hydronephrosis Code(s): N13.30 - Unspecified hydronephrosis Status: Acute (4) Anaphylaxis: Qualifiers: Encounter type: initial encounter Qualified Code(s): T78.2XXA - Anaphylactic shock, unspecified, initial encounter Code(s): T78.2XXA - Anaphylactic shock, unspecified, initial encounter Status: Acute (5) Urticaria: Code(s): L50.9 - Urticaria, unspecified Status: Acute (6) S/P ureteral stent placement: Code(s): Z96.0 - Presence of urogenital implants Status: Acute DS: Summary Hospital Course Hospital Course: This is a 62-year-old white female with a past medical history hyperlipidemia, asthma, depression, recurrent kidney stones, recurrent urticaria. She reports left flank pain 1 day prior to admission which became progressively worse.? She previously required lithotripsy and stenting.? She also had some nausea and vomiting.? On admission she denies dysuria hematuria or other urinary symptoms.? As well the patient has had recurrent breakout of urticaria.? She has never had this investigated.? He typically takes Benadryl and it resolved on its own.? Four days prior to admission she had this happen again and it resolved after Benadryl.? It returned a day prior to admission and got worse.? Patient was treated for anaphylaxis in the emergency room reporting difficulty breathing and cough and itching in the throat.? He was given epinephrine Solu-Medrol Benadryl and Pepcid with significant improvement of symptoms.? Admitted on 04/26/2023 On 04/27/2023 she underwent cystoscopy, left retrograde pyelogram and placement of a left 4.8 x 26 cm JJ stent without complication. This was done by Dr. Arora. The stent was placed up to the level of the 8 mm stone and there is hydronephrosis as well. The patient has some lingering pain so she will be discharged on oxycodone p.r.n. 5 tabs. She will also follow with Dr. Estes for definitive management. He was also treated with levofloxacin for a complicated UTI. Sensitivities resulted Klebsiella pneumonia and per Urology recommendation she will be discharged home on Macrobid. Another 10 days were prescribed. Patient has recurrent urticaria of unknown etiology and it usually resolve with Benadryl. She was found to have influenza a and along with this pain and acute issues with her kidney stone she probably had additional mast cell activation. None the less she did have the beginnings of anaphylaxis and more refractory urticaria this time requiring famotidine IV Benadryl and Solu-Medrol. To be discharged on a Medrol Dosepak to be used 1 time if she has recurrent symptoms although I did explain she should notify her PCP if this happens again as she needs more evaluation on this matter. She understands she needs to see an construction framer and wants to get a referral from her PCP. Advised she seek out follow-up within 1 or 2 weeks. Educated on adverse effects and risks the benefits the new medications and patient was in understanding and agreement with the entire plan. Patient was full code during her admission. Time Spent with Patient Time attestation: Total time spent providing and/or coordinating discharge services: Exam Const: General: comfortable and no acute distress
== END 2023-04-28 15:55 | disposition home or self-care (01) ==
LOC: ANHED 20:22 → ANH2MED 21:45
PROVIDERS: Emergency Medicine; Urology; Admitting Provider Internal Medicine; Emergency Provider Physician Assistant; PCP Family Medicine; Visit Provider General Practice
PROC: (CPT 52352; principal; 2023-04-27 07:30)
DX: N13.2 Hydronephrosis with renal and ureteral calculous obstruction (principal); N39.0 Urinary tract infection, site not specified; B96.1 Klebsiella pneumoniae [K. pneumoniae] as the cause of diseases classified elsewhere; J10.1 Influenza due to other identified influenza virus with other respiratory manifestations; T78.2XXA Anaphylactic shock, unspecified, initial encounter; L50.9 Urticaria, unspecified; R06.00 Dyspnea, unspecified; E78.2 Mixed hyperlipidemia; J45.909 Unspecified asthma, uncomplicated; F32.A Depression, unspecified; E66.9 Obesity, unspecified; Z68.33 Body mass index [BMI] 33.0-33.9, adult; Z87.891 Personal history of nicotine dependence; Z79.84 Long term (current) use of oral hypoglycemic drugs; Z79.51 Long term (current) use of inhaled steroids; G47.33 Obstructive sleep apnea (adult) (pediatric); Z20.822 Contact with and (suspected) exposure to COVID-19
CPT/HCPCS: 52332; 36415; 74018; 74176; 74420; 80048; 80053; 81001; 83605; 85025; 87040; 87077; 87086; 87186; 87637; 96361; 96365; 96372; 96374; 96375; 96376; 99285; A9270; C1769; C2617; G0378; J0171; J1170; J1200; J1956; J2250; J2270; J2405; J2704; J2930; J3010; J7030; J7120; J7512; Q9966

== ENCOUNTER 2023-05-16 00:23 | Day surgery (SDC) | payer OTHER, SELFPAY ==
[2023-05-08 12:15] VITALS: BMI 30.9
--- NOTE | 2023-05-08 12:25 | PC.NURSE ---
Report to the Outpatient Waiting Room, entrance under the green pavilion located off [facility], at time 0630 on date 05/16/23. Planned Procedure Time: 0830. Time changes happen often and if your time is changed the preop area will call you the afternoon before. - You and your visitor will be asked to self-screen and do not enter if you have any COVID symptoms. - A mask is optional within the hospital at this time. Patients may have clear liquids (water, carbonated beverages, clear teas, apple juice) until 3 hours prior to surgery with a maximum of 20 ounces. - No food from midnight until time of surgery Take the following medications with a SIP of water the morning of surgery: BUPROPION, INHALER IF NEEDED (PT STATES WILL BE FINISHED WITH ANTIBIOTIC ON 05/09 OR 05/10) DO NOT STOP ANY OF YOUR OTHER PRESCRIPTION MEDICATIONS PRIOR TO SURGERY ?EXCEPT THE FOLLOWING Medications to discontinue per physician: N/A Date to take last dose: N/A Please no make-up, nail samoan, hairspray, perfume, deodorant, or body powder the day of surgery. No jewelry (including any body piercings) or valuables the day of surgery, leave them at home. Please take a shower or bath the night before, or the morning of, surgery with an antibacterial soap. Wear comfortable, loose fitting clothing. - Jewelry must be removed prior to entering the operating room. Rings and piercings that are not removed may be cut off. - The hospital will not accept responsibility for valuables. - Please leave all valuables, including medications, at home the day of surgery. If you are going home after surgery, a licensed rail car driver must drive you home. - NO public transportation without another adult if you receive anesthesia. - We recommend that an adult stay with you for 24 hours following discharge. - We also recommend that you do not drive, make important decision, drink alcoholic beverages, or take any drugs that were not prescribed by your health care provider for at least 24 hours after your discharge time. Follow any additional instructions given to you from your surgeon. If you or anyone in your household have experienced Covid symptoms in the past week, please notify your surgeon or the nurse liaison at the phone number below for possible testing. Telephone instructions given to PT - STEVEN SUMMERS and asked if any additional questions and then verbalized understanding. Patient advised to call surgeon office or pre surgery nurse liaison [phone] if any additional questions.
--- NOTE | 2023-05-15 07:08 | PM.HPGS ---
History of Present Illness History of Present Illness Consent: Risks, benefits, and alternatives have been discussed and questions answered. Patient agrees to proceed with procedure. Chief complaint: left ureteral stone Narrative: Tiana Singer is a 62 year old female who is status post ESWL to a 13 mm stone in her left renal pelvis in March 2023. She did well immediately postoperatively but was admitted several weeks later with an obstructing 8 mm stone in her left proximal ureter and urinary tract infection. A ureteral stent was placed and she now presents for left ureteroscopy with laser lithotripsy, stone extraction, possible retrograde pyelography and stent replacement. She is aware the risk including, but not limited to, hematuria need for additional procedures Review of Systems Review of Systems: All systems reviewed & are unremarkable except as noted in HPI and below PMFSH Past Medical History Medical History Arthritis Asthma Bilateral kidney stones Depressive disorder, not elsewhere classified Mixed hyperlipidemia Obesity (BMI 30.0-34.9) RBBB Right cervical radiculopathy Umbilical hernia without mention of obstruction or gangrene Surgical History Surgical History (Updated 04/28/23 @ 12:33 by Susana Kline MD) H/O lithotripsy H/O vaginal hysterectomy S/P ureteral stent placement Left ureteral 4.8x26cm JJ stent on 04/27/23 Status post arthroscopy of left shoulder Rotator cuff repair Family History Family History Sibling Cerebrovascular accident Family history of diabetes mellitus in first degree relative Family history of heart disease in male family member before age 55 Family history of elevated blood lipids Family history of cardiovascular disease Family history of coronary artery disease Mother Family history of diabetes mellitus in first degree relative Family history of heart disease in male family member before age 55 Diabetes mellitus, Onset Age: 56 Family history of cardiovascular disease, Onset Age: 56 Family history of coronary artery disease, Onset Age: 56 Father Family history of heart disease in male family member before age 55 Diabetes mellitus, Onset Age: 79 Family history of cardiovascular disease, Onset Age: 79 Family history of coronary artery disease, Onset Age: 79 Grandparent Family history of cardiovascular disease Other Family history of osteoporosis Hypertension Social History Social History Social History: She drinks 1 cup of coffee a day. She rarely drinks soda. Code status: Full code Surrogate decision maker: Smoking packs per day: 0.75 Smoking cigarettes per day: 15.0 Years smoked: 10 Smoking pack-years: 7.50 Smoking status: Former smoker Tobacco type: cigarettes Smoking end date: 03/18/93 Alcohol intake: current Drinks per week: 1 Alcohol use details: RARE Substance use: never Substance use type: does not use Do You Feel Safe in your Home?: Yes Lack of Transportation: No Lack of Food: Never True Current Housing: I Have Housing Concerned About Future Housing: No Difficulty Paying Gas/Electric Bills: No Difficulty Paying for Meds: No Currently Unemployed: No Education: High School Diploma/GED Difficulty w/ Childcare or Family Care: No Living arrangements: with family Additional living arrangements comments: Patient lives with her of 45 years. They raised 4 children. Additional occupation/education comments: She is retired EMS dispatcher. Gender identity (if verbalized by the patient): Female Sexual Orientation (if Verbalized by the Patient): Straight or Heterosexual Spiritual care concerns: No Meds Home Medications and Allergies Home Medications Medication Instructi
[2023-05-16] VITALS (8 sets, daily range): BP systolic 122–167; BP diastolic 64–93; PULSE 69–88; RESP 12–14; TEMP 36.2–36.8; O2SAT 93–100
--- NOTE | ~2023-05-16 | XR_ITS ---
EXAMINATION: XR retrograde pyelo w/stent LT DATE: 05/16/2023 09:32 INDICATION: Left ureteral stone. TECHNIQUE: 91 fluoroscopic images of the abdomen and pelvis were obtained. I was not present. Fluoros copy exposure time was 57 seconds. COMPARISON: CT abdomen and pelvis 04/26/2023 FINDINGS: There is is a stone in the proximal left ureter. There are stones in left kidney in a calyc eal diverticulum. There is mild left hydronephrosis. The left ureteral stone was removed. The final i mages demonstrate a left internal ureteral stent in expected position. IMPRESSION: 1. Stone in the proximal left ureter status post extraction. 2. 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 3. Mild left hydronephrosis. 4. Left internal ureteral stent in expected position. Reviewed, dictated and finalized at location A. R CRIME INVESTIGATOR
--- NOTE | 2023-05-16 06:20 | WPDHPUPDATE1 ---
History and Physical Update Update Date/Time: 05/16/23 06:20 History and Physical has been reviewed, including an updated exam of the patient. There are NO changes in the patient's condition. Risks, benefits, and alternatives have been discussed and questions answered. Patient agrees to proceed with procedure.
[2023-05-16] MEDS: LACTATED RINGERS 1,000 ML 30 ML IV CONT (08:00)
--- NOTE | 2023-05-16 08:04 | WPDANESEPPF ---
Anes - Initial Pre Proc Eval Procedure: Operation Date: 05/16/23 09:00 Proposed Procedures p Cystoscopy, Possible Left Retrograde Pyelogram, Left Ureteroscopy, Left Stone Extraction, Holmium Laser with Left Stent Placement - Toan Estes MD Date/Time: 05/16/23 08:04 Surgeon: Toan Estes MD Pre Op Diagnosis: left ureteral stone Patient Data Age: 62 Gender: F Height: 1.63 m Weight: 81.65 kg Allergies Allergy/AdvReac Type Severity Reaction Status Date / Time ceftriaxone [From Rocephin] Allergy Hives Verified 05/15/23 15:16 Home Medications Medication Instructions Recorded Confirmed Type albuterol sulfate 90 mcg/actuation 2 puff inhalation Q4H PRN 05/19/21 05/15/23 Rx aerosol inhaler (ProAir HFA) shortness of breath or wheezing #8.5 grams metformin 500 mg tablet 500 mg PO BIDWMEAL #180 tabs 12/17/22 05/15/23 Rx bupropion HCl 300 mg 24 hr tablet, 300 mg PO QAM #90 tabs 04/26/23 05/15/23 Rx extended release (Wellbutrin XL) bupropion HCl 150 mg 24 hr tablet, 150 mg PO QAM #90 tabs 05/15/23 05/15/23 Rx extended release (Wellbutrin XL) hydrocodone 5 mg-acetaminophen 325 1 tablet PO Q6H PRN pain #20 tabs 05/15/23 05/15/23 Rx mg tablet liraglutide (weight loss) 3 mg/0.5 3 mg (0.5 mL) subcut DAILY #15 mL 05/15/23 05/15/23 Rx mL (18 mg/3 mL) subcut pen injector (Saxenda) trazodone 100 mg tablet 200 mg PO HS #180 tabs 05/15/23 05/15/23 Rx Patient hx anesthesia problems: none Family hx anesthesia problems: none Results Review: All pre-operative results and documents have been reviewed as part of the pre-operative evaluation. [facility] Past Medical History Medical History Arthritis Asthma Bilateral kidney stones Depressive disorder, not elsewhere classified Mixed hyperlipidemia Obesity (BMI 30.0-34.9) RBBB Right cervical radiculopathy Umbilical hernia without mention of obstruction or gangrene Surgical History Surgical History H/O lithotripsy H/O vaginal hysterectomy S/P ureteral stent placement Left ureteral 4.8x26cm JJ stent on 04/27/23 Status post arthroscopy of left shoulder Rotator cuff repair Family History Family History Sibling Cerebrovascular accident Family history of diabetes mellitus in first degree relative Family history of heart disease in male family member before age 55 Family history of elevated blood lipids Family history of cardiovascular disease Family history of coronary artery disease Mother Family history of diabetes mellitus in first degree relative Family history of heart disease in male family member before age 55 Diabetes mellitus, Onset Age: 56 Family history of cardiovascular disease, Onset Age: 56 Family history of coronary artery disease, Onset Age: 56 Father Family history of heart disease in male family member before age 55 Diabetes mellitus, Onset Age: 79 Family history of cardiovascular disease, Onset Age: 79 Family history of coronary artery disease, Onset Age: 79 Grandparent Family history of cardiovascular disease Other Family history of osteoporosis Hypertension Social History Social History Social History: She drinks 1 cup of coffee a day. She rarely drinks soda. Code status: Full code Surrogate decision maker: Smoking packs per day: 0.75 Smoking cigarettes per day: 15.0 Years smoked: 10 Smoking pack-years: 7.50 Smoking status: Former smoker Tobacco type: cigarettes Smoking end date: 03/18/93 Alcohol intake: current Drinks per week: 1 Alcohol use details: RARE Substance use: never Substance use type: does not use Do You Feel Safe in your Home?: Yes Lack of Transportation: No Lack of Food: Never True Current Ho
[2023-05-16 08:08] LABS: Glucose Point of Care 99 mg/dl (65-105)
[2023-05-16] MEDS: levoFLOXacin 500 MG/D5W 100 ML 500 MG/100 ML BAG 100 MG IVPB (08:30)
[2023-05-16] MEDS: LIDOCAINE HCL 2% GEL UROJET 10 ML PKG MUCOUS MEM (08:47)
--- NOTE | 2023-05-16 09:26 | P.OP_ITS ---
Procedure Note - Detailed Date of Procedure 05/16/23 Pre-op Diagnosis left ureteral stone Post-op Diagnosis Same Procedure Performed Cystoscopy, left ureteroscopy with laser lithotripsy and extraction of left ureteral stone, left retrograde pyelography and left ureteral stent replacement Surgeon Toan Estes MD Anesthesia General Description of Procedure patient is brought to the operative suite where she was prepped and draped in routine sterile fashion while in dorsal lithotomy position after the uneventful induction of a general anesthetic. Twenty-one F rigid cystoscope was placed in her bladder and the tip of the indwelling stent is grasped and brought to the external urethral meatus. A 0.035 in glidewire was advanced through that into the left renal pelvis. Left retrograde pyelography was performed through the 10 F dilator and I can identify her left mid ureteral stone. 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 With flexible ureteroscopy was unable to identify the mouth of the diverticulum . Given the fact this parenchymal calcification is causing little problems I opted not to pursue further. The ureteral stone is dusted with a 273 micron [facility] laser fiber. All sizable fragments are removed. The 4.8 F variable length stent is replaced. Imaging confirmed proper positioning of the stent with a coil in renal pelvis and distal coil in the bladder. Pathology Yes Complications No immediate complications Condition Stable Disposition PACU
[2023-05-16 09:43] LABS: Glucose Point of Care 111 mg/dl (65-105)
[2023-05-16] MEDS: fentaNYL CITRATE INJ (*CRX) 100 MCG/2 ML VIAL 25 MCG IV PUSH ×4 (09:46→10:05)
[2023-05-16] MEDS: KETOROLAC 15 MG/ML VIAL (*BKC) IV PUSH (11:11)
== END 2023-05-16 11:35 | disposition home or self-care (01) ==
PROVIDERS: PCP Family Medicine; Visit Provider Urology
PROC: (CPT 52352; principal; 2023-05-16 09:00)
DX: N20.1 Calculus of ureter (principal); J45.909 Unspecified asthma, uncomplicated; E78.2 Mixed hyperlipidemia; F32.A Depression, unspecified; E66.9 Obesity, unspecified; Z68.32 Body mass index [BMI] 32.0-32.9, adult; Z79.51 Long term (current) use of inhaled steroids; Z79.84 Long term (current) use of oral hypoglycemic drugs; Z79.85 Long-term (current) use of injectable non-insulin antidiabetic drugs; Z87.891 Personal history of nicotine dependence
CPT/HCPCS: 52356; 74420; 82365; 82948; 88300; C1769; C1894; C2617; J1100; J1885; J1956; J2405; J2704; J3010; J7120; Q9966

== ENCOUNTER 2023-07-15 09:00 | Outpatient (CLI) | payer OTHER, SELFPAY ==
[2023-07-15 09:44] LABS: INR 0.9; Prothrombin Time 12.1 Seconds (11.1-14.7)
[2023-07-15 09:45] LABS: Anion Gap 8 mmol/L (4-12); Blood Urea Nitrogen 15 mg/dL (7-17); Calcium 9.7 mg/dL (8.4-10.2); Carbon Dioxide 27 mmol/L (22-30); Chloride 102 mmol/L (98-107); Estimated Glomerular Filt Rate 56; Glucose 109 mg/dL (65-110); Partial Thromboplastin Time 31.5 Seconds (22.3-36.8); Potassium 4.4 mmol/L (3.4-5.0); Sodium 137 mmol/L (137-145)
== END 2023-07-15 09:01 | disposition home or self-care (01) ==
LOC: ANHSURGERY 09:03
PROVIDERS: Anesthesiology; PCP Family Medicine; Visit Provider Urology
DX: N20.0 Calculus of kidney (principal); R73.03 Prediabetes; Z01.818 Encounter for other preprocedural examination
CPT/HCPCS: 36415; 80048; 85610; 85730; 87086

== ENCOUNTER 2023-07-19 03:18 | Day surgery (SDC) | payer OTHER, SELFPAY ==
--- NOTE | 2023-07-10 12:35 | PC.NURSE ---
Report to the Outpatient Waiting Room, entrance under the green pavilion located off [facility], at time 11:00 on date 07/19/23. Planned Procedure Time: 1:00. Time changes happen often and if your time is changed the preop area will call you the afternoon before. - You and your visitor will be asked to self-screen and do not enter if you have any COVID symptoms. - A mask is optional within the hospital at this time. Patients may have clear liquids (water, carbonated beverages, clear teas, apple juice) until 3 hours prior to surgery (10:00) with a maximum of 20 ounces. - No food from midnight until time of surgery Take the following medications with a SIP of water the morning of surgery: BUPROPION, INHALER IF NEEDED (AND BRING WITH YOU) DO NOT STOP ANY OF YOUR OTHER PRESCRIPTION MEDICATIONS PRIOR TO SURGERY ?EXCEPT THE FOLLOWING Medications to discontinue per physician: N/A (NOT RESTARTING SAXENDA UNTIL AFTER SURGERY) Date to take last dose: N/A Please no make-up, nail costa rican, hairspray, perfume, deodorant, or body powder the day of surgery. No jewelry (including any body piercings) or valuables the day of surgery, leave them at home. Please take a shower or bath the night before, or the morning of, surgery with an antibacterial soap. Wear comfortable, loose fitting clothing. - Jewelry must be removed prior to entering the operating room. Rings and piercings that are not removed may be cut off. - The hospital will not accept responsibility for valuables. - Please leave all valuables, including medications, at home the day of surgery. If you are going home after surgery, a licensed ross carrier driver must drive you home. - NO public transportation without another adult if you receive anesthesia. - We recommend that an adult stay with you for 24 hours following discharge. - We also recommend that you do not drive, make important decision, drink alcoholic beverages, or take any drugs that were not prescribed by your health care provider for at least 24 hours after your discharge time. Follow any additional instructions given to you from your surgeon. If you or anyone in your household have experienced Covid symptoms in the past week, please notify your surgeon or the nurse liaison at the phone number below for possible testing. Telephone instructions given to PT Roxana HARRIS and asked if any additional questions and then verbalized understanding. Patient advised to call surgeon office or pre surgery nurse liaison [phone] if any additional questions.
[2023-07-10 12:39] VITALS: BMI 32.3
--- NOTE | 2023-07-18 08:27 | PM.HPGS ---
History of Present Illness History of Present Illness Consent: Risks, benefits, and alternatives have been discussed and questions answered. Patient agrees to proceed with procedure. Chief complaint: Rt Kidney Stone Narrative: Tiana Singer is a 62 year old female with a known history of recurrent urolithiasis. She is status post recent left ESWL for a 13 mm stone. We then had to do left ureteroscopy for an 8 mm obstructing residual fragment. Follow-up renal ultrasonography shows 3 stones in her right kidney. After discussion of options she elects for right ESWL. She does have a identifiable stone in her left kidney but it appears to be a large stone in either an upper pole calyceal diverticulum or parenchymal calcification. She is aware the risk including, but not limited to, adverse cardiopulmonary events, hematuria, perinephric hematoma and need for additional procedures. Review of Systems Review of Systems: All systems reviewed & are unremarkable except as noted in HPI and below PMFSH Past Medical History Medical History Arthritis Asthma Bilateral kidney stones Depressive disorder, not elsewhere classified Mixed hyperlipidemia Obesity (BMI 30.0-34.9) RBBB Right cervical radiculopathy Umbilical hernia without mention of obstruction or gangrene Surgical History Surgical History H/O lithotripsy H/O vaginal hysterectomy S/P ureteral stent placement Left ureteral 4.8x26cm JJ stent on 04/27/23 Status post arthroscopy of left shoulder Rotator cuff repair Family History Family History Sibling Cerebrovascular accident Family history of diabetes mellitus in first degree relative Family history of heart disease in male family member before age 55 Family history of elevated blood lipids Family history of cardiovascular disease Family history of coronary artery disease Mother Family history of diabetes mellitus in first degree relative Family history of heart disease in male family member before age 55 Diabetes mellitus, Onset Age: 56 Family history of cardiovascular disease, Onset Age: 56 Family history of coronary artery disease, Onset Age: 56 Father Family history of heart disease in male family member before age 55 Diabetes mellitus, Onset Age: 79 Family history of cardiovascular disease, Onset Age: 79 Family history of coronary artery disease, Onset Age: 79 Grandparent Family history of cardiovascular disease Other Family history of osteoporosis Hypertension Social History Social History Social History: She drinks 1 cup of coffee a day. She rarely drinks soda. Code status: Full code Surrogate decision maker: Smoking packs per day: 0.75 Smoking cigarettes per day: 15.0 Years smoked: 10 Smoking pack-years: 7.50 Smoking status: Former smoker Tobacco type: cigarettes Smoking end date: 03/18/93 Alcohol intake: current Drinks per week: 1 Alcohol use details: RARE Substance use: never Substance use type: does not use Do You Feel Safe in your Home?: Yes Lack of Transportation: No Lack of Food: Never True Current Housing: I Have Housing Concerned About Future Housing: No Difficulty Paying Gas/Electric Bills: No Difficulty Paying for Meds: No Currently Unemployed: No Education: High School Diploma/GED Difficulty w/ Childcare or Family Care: No Living arrangements: with family Additional occupation/education comments: She is retired EMS dispatcher. Gender identity (if verbalized by the patient): Female Sexual Orientation (if Verbalized by the Patient): Straight or Heterosexual Spiritual care concerns: No Meds Home Medications and Allergies Home Medications Medication Instruc
[2023-07-19] VITALS (7 sets, daily range): BP systolic 87–144; BP diastolic 60–88; PULSE 58–67; RESP 11–16; TEMP 36.3–36.7; O2SAT 94–100; BMI 34.0
--- NOTE | ~2023-07-19 | XR_ITS ---
XR abdomen/kub 1V 07/19/2023 11:04 Indication: Preop ESWL Procedure: KUB Comparison: Comparison to multiple prior studies sequentially, with oldest reviewed study dated 05/02. Findings: There are multiple bilateral renal stones which are not significantly changed from prior st udy. No definite stones are identified in the expected course of the ureters. Bowel gas pattern nonob structive. Moderate colonic fecal loading. Impression: 1: Bilateral nephrolithiasis. Reviewed, dictated and finalized at location B. Impression: 1: Bilateral nephrolithiasis.
--- NOTE | 2023-07-19 06:19 | WPDHPUPDATE1 ---
History and Physical Update Update Date/Time: 07/19/23 06:19 History and Physical has been reviewed, including an updated exam of the patient. There are NO changes in the patient's condition. Risks, benefits, and alternatives have been discussed and questions answered. Patient agrees to proceed with procedure.
[2023-07-19] MEDS: LACTATED RINGERS 1,000 ML 30 ML IV CONT (11:25)
[2023-07-19 11:40] LABS: Glucose Point of Care 105 mg/dl (65-105)
--- NOTE | 2023-07-19 11:57 | WPDANESEPPF ---
Anes - Initial Pre Proc Eval Procedure: Operation Date: 07/19/23 13:00 Proposed Procedures p Right Extracorporeal Shock Wave Lithotripsy - Toan Estes MD Date/Time: 07/19/23 11:57 Surgeon: Toan Estes MD Pre Op Diagnosis: Rt Kidney Stone Patient Data Age: 62 Gender: F Height: 1.63 m Weight: 85.3 kg Allergies Allergy/AdvReac Type Severity Reaction Status Date / Time ceftriaxone [From Rocephin] Allergy Hives Verified 07/19/23 11:47 Home Medications Medication Instructions Recorded Confirmed Type albuterol sulfate 90 mcg/actuation 2 puff inhalation Q4H PRN 05/19/21 07/10/23 Rx aerosol inhaler (ProAir HFA) shortness of breath or wheezing #8.5 grams bupropion HCl 300 mg 24 hr tablet, 300 mg PO QAM #90 tabs 04/26/23 07/10/23 Rx extended release (Wellbutrin XL) bupropion HCl 150 mg 24 hr tablet, 150 mg PO QAM #90 tabs 05/15/23 07/10/23 Rx extended release (Wellbutrin XL) liraglutide (weight loss) 3 mg/0.5 3 mg (0.5 mL) subcut DAILY #15 mL 05/15/23 07/10/23 Rx mL (18 mg/3 mL) subcut pen injector (Saxenda) trazodone 100 mg tablet 200 mg PO HS #180 tabs 05/15/23 07/10/23 Rx metformin 500 mg tablet 500 mg PO BIDWMEAL #180 tabs 06/10/23 07/10/23 Rx Laboratory Tests 07/19/23 11:37 POC Capillary Glucose 105 mg/dl (65-105) Patient hx anesthesia problems: none Family hx anesthesia problems: none Results Review: All pre-operative results and documents have been reviewed as part of the pre-operative evaluation. [facility] Past Medical History Medical History Arthritis Asthma Bilateral kidney stones Depressive disorder, not elsewhere classified Mixed hyperlipidemia Obesity (BMI 30.0-34.9) RBBB Right cervical radiculopathy Umbilical hernia without mention of obstruction or gangrene Surgical History Surgical History H/O lithotripsy H/O vaginal hysterectomy S/P ureteral stent placement Left ureteral 4.8x26cm JJ stent on 04/27/23 Status post arthroscopy of left shoulder Rotator cuff repair Family History Family History Sibling Cerebrovascular accident Family history of diabetes mellitus in first degree relative Family history of heart disease in male family member before age 55 Family history of elevated blood lipids Family history of cardiovascular disease Family history of coronary artery disease Mother Family history of diabetes mellitus in first degree relative Family history of heart disease in male family member before age 55 Diabetes mellitus, Onset Age: 56 Family history of cardiovascular disease, Onset Age: 56 Family history of coronary artery disease, Onset Age: 56 Father Family history of heart disease in male family member before age 55 Diabetes mellitus, Onset Age: 79 Family history of cardiovascular disease, Onset Age: 79 Family history of coronary artery disease, Onset Age: 79 Grandparent Family history of cardiovascular disease Other Family history of osteoporosis Hypertension Social History Social History Social History: She drinks 1 cup of coffee a day. She rarely drinks soda. Code status: Full code Surrogate decision maker: Smoking packs per day: 0.75 Smoking cigarettes per day: 15.0 Years smoked: 10 Smoking pack-years: 7.50 Smoking status: Former smoker Tobacco type: cigarettes Smoking end date: 03/18/93 Alcohol intake: current Drinks per week: 1 Alcohol use details: RARE Substance use: never Substance use type: does not use Do You Feel Safe in your Home?: Yes Lack of Transportation: No Lack of Food: Never True Current Housing: I Have Housing Concerned About Future Housing: No Difficulty Paying Gas/Electric Bills: No
[2023-07-19] MEDS: levoFLOXacin 500 MG/D5W 100 ML 500 MG/100 ML BAG 100 MG IVPB (12:41)
--- NOTE | 2023-07-19 12:52 | W.PM.PROC2 ---
Procedure Note - Detailed Date of Procedure 07/19/23 Pre-op Diagnosis Rt Kidney Stones Post-op Diagnosis Same Procedure Performed Right ESWL Surgeon Toan Estes MD Anesthesia General Description of Procedure The patient was brought to the operative suite where she was placed in the supine position on the Dornier lithotripsy table. The focal point of the lithotripter was placed at at four different small stones in her right kidney. A total of 2500 shocks were delivered at a power setting of 4, split between these four stones. There appeared to be good fragmentation of the stones. The patient tolerated the procedure well and was taken to the recovery room in good condition. Drains No Packing No Pathology None sent Complications No immediate complications Condition Stable Disposition PACU
[2023-07-19 13:29] LABS: Glucose Point of Care 110 mg/dl (65-105)
[2023-07-19] MEDS: fentaNYL CITRATE INJ (*CRX) 100 MCG/2 ML VIAL 25 MCG IV PUSH ×2 (13:43→13:51)
[2023-07-19] MEDS: oxyCODONE HCL (*CRX) 5 MG TAB IR PO (14:21)
== END 2023-07-19 14:10 | disposition home or self-care (01) ==
PROVIDERS: PCP Family Medicine; Visit Provider Urology
PROC: (CPT 50590; principal; 2023-07-19 13:00)
DX: N20.0 Calculus of kidney (principal); J45.909 Unspecified asthma, uncomplicated; E78.2 Mixed hyperlipidemia; F32.A Depression, unspecified; E66.9 Obesity, unspecified; Z68.34 Body mass index [BMI] 34.0-34.9, adult; Z79.51 Long term (current) use of inhaled steroids; Z79.85 Long-term (current) use of injectable non-insulin antidiabetic drugs; Z79.84 Long term (current) use of oral hypoglycemic drugs; Z87.891 Personal history of nicotine dependence
CPT/HCPCS: 50590; 36415; 74018; 80048; 82948; 85610; 85730; 87086; 87088; A9270; J1100; J1956; J2250; J2405; J2704; J3010; J7120

== ENCOUNTER 2023-07-29 09:44 | Outpatient (CLI) | payer OTHER, SELFPAY ==
--- NOTE | ~2023-07-29 | XR_ITS ---
Supine and upright views of the abdomen Clinical history: Renal stone COMPARISON: 07/19/2023 Findings: Bowel gas pattern is nonspecific. No evidence for obstruction or free air. Multiple small b ilateral renal stones are similar to prior exam. Additional more lobulated coarse calcification left upper quadrant is also unchanged.. Osseous structures are intact. Impression: Stable bilateral renal stones. Reviewed, dictated and finalized at location . Impression: Stable bilateral renal stones.
== END 2023-07-29 09:45 | disposition home or self-care (01) ==
LOC: ANHIMG 09:46
PROVIDERS: PCP Family Medicine; Visit Provider Urology
DX: N20.1 Calculus of ureter (principal)
CPT/HCPCS: 74018

== ENCOUNTER 2023-12-23 12:03 | Outpatient (CLI) | payer OTHER, SELFPAY ==
--- NOTE | ~2023-12-23 | XR_ITS ---
Clinical Indication: Cough, shortness of breath PA and lateral views of the chest: Comparison: 02/28/2023 Findings: The lungs are clear, without evidence of focal consolidation or pleural effusion. Cardiome diastinal silhouette is within normal limits. Bones and soft tissues are unremarkable. Impression: Normal chest. Reviewed, dictated and finalized at location . Impression: Normal chest.
== END 2023-12-23 12:04 | disposition home or self-care (01) ==
PROVIDERS: PCP Family Medicine; Visit Provider Student in an Organized Health Care Education/Training Program
DX: J06.9 Acute upper respiratory infection, unspecified (principal); R50.9 Fever, unspecified; R05.9 Cough, unspecified
CPT/HCPCS: 71046

== ENCOUNTER 2024-01-22 13:37 | Outpatient (CLI) | payer OTHER, SELFPAY ==
--- NOTE | ~2024-01-22 | XR_ITS ---
XR shoulder RT min 2V Ordering provider: BRIANNA Gallagher History: . possible lifting injury pain for 3 weeks . Comparison: None. FINDINGS: BONES: No acute fracture or dislocation. JOINT SPACES: The acromioclavicular joint shows minimal osteoarthritic changes. The glenohumeral join t is normal. SOFT TISSUES: Normal. IMPRESSION: No acute osseous abnormality right shoulder. Reviewed, dictated and finalized at location A. ERATURE INSPECTOR
== END 2024-01-22 13:38 | disposition home or self-care (01) ==
LOC: GOSHIMG 13:38
PROVIDERS: PCP Family Medicine; Visit Provider Nurse Practitioner Family
DX: M25.511 Pain in right shoulder (principal)
CPT/HCPCS: 73030

== ENCOUNTER 2024-12-29 07:34 | Outpatient (CLI) | payer MEDICARE, SELFPAY ==
--- NOTE | 2024-12-29 | EST_ITS ---
Patient Info Name: Tiana Singer Age: 64 years : 1960 Gender: Female Ht: 64,220 in Wt: 220 lbs BSA: 33.60 m2 HR: 68 bpm BP: 141 / 87 mmHg Exam Date: 12/29/2024 7:42 AM Patient Status: O Admit Date: 12/29/2024 Exam Type: CA stress brie w NM A regadenoson stress test was performed. Staff Referring Physician: Domenico Chen MD Attending Provider: DR. CARRILLO Exercise Technologist: Jade Pemberton Exercise Physician: Myron Carrillo DO Summary 1. 1. Negative lexiscan stress test for ischemic ST changes by ECG criteria. 2. 2. Stable hemodynamics throughout the test. 3. 3. Nuclear scan to follow and will be reported separately. Please correlate with it. 4. 4. Patient informed of the above results. Protocol: Lexiscan Stress ECG Details Stage: REST Duration (min): 1 min : 52 sec HR (bpm): 72 SBP (mmHg): 141 DBP (mmHg): 87 Stage: REST Duration (min): 9 min : 22 sec HR (bpm): 70 SBP (mmHg): 141 DBP (mmHg): 87 Stage: STAGE 1 Duration (min): 1 min : 0 sec HR (bpm): 88 SBP (mmHg): 134 DBP (mmHg): 80 Stage: RECOVERY Duration (min): 1 min : 0 sec HR (bpm): 87 SBP (mmHg): 134 DBP (mmHg): 80 Stage: RECOVERY Duration (min): 2 min : 0 sec HR (bpm): 85 SBP (mmHg): 134 DBP (mmHg): 80 Stage: RECOVERY Duration (min): 3 min : 0 sec HR (bpm): 83 SBP (mmHg): 135 DBP (mmHg): 81 Stage: RECOVERY Duration (min): 3 min : 33 sec HR (bpm): 82 SBP (mmHg): 135 DBP (mmHg): 81 Rest HR: 70 bpm Peak HR: 90 bpm Rest Sys BP: 141 mmHg Peak Sys BP: 135 mmHg Max Pred HR: 155 bpm % Max Pred HR: 58 % Target HR: 132 bpm Max RPP: 12,150 bpm*mmHg Termination Reason: Completed protocol Cardiac Symptoms: Shortness of breath Total Time: 1 min : 0 sec Rest Raman BP: 87 mmHg Peak Raman BP: 81 mmHg Total Dose: 0.4 mg Resting ECG Sinus rhythm. Stress ECG No ST changes. Arrhythmias None. Report Signatures
--- NOTE | ~2024-12-29 | NM_ITS ---
EXAMINATION: NM brie stress w perfusion DATE: 12/29/2024 10:34 INDICATION: Dyspnea. TECHNIQUE: Rest images were obtained following intravenous administration of 11.5 mCi Tc99m tetrofosmin (Myoview). The patient was infused intravenously with Lexiscan (regadenoson). Then, 34.9 mCi Tc99m tetrofosmin (Myoview) was administered intravenously, and stress images were obtained. Data was bob nstructed into short axis and horizontal and vertical long axis SPECT images. Gated SPECT images were also obtained. COMPARISON: None. FINDINGS: There is no definite reversible or fixed perfusion abnormality to suggest ischemia or infarction. There is no segmental wall motion abnormality. Left ventricular ejection fraction measures >70%. IMPRESSION: 1. No definite ischemia or infarct. 2. Normal left ventricular ejection fraction measuring >70%. Reviewed, dictated and finalized at location E.
--- OUTSIDE RECORDS SUMMARY | 2024-12-29 07:40 | XMS_ITS | Clinical Summary ---
Author Organization [facility] Address [address] [address] Phone Care Team Providers Care Sewage Disposal Engineer Name Role Phone Domenico Chen MD Primary Care Provider [phone]- [phone] Allergies No known active allergies Medications buPROPion (WELLBUTRIN XL) 300 MG TABLET SR 24 HR XL tablet Take 300 mg by mouth every morning. Active traZODone (DESYREL) 100 MG Tablet Take 100 mg by mouth nightly. Active Multiple Vitamins-Mineral s (MULTI ADULT GUMMIES) Chewable Tablet Take by mouth. Active famotidine (PEPCID) 20 MG Tablet Take 20 mg by mouth 2 times daily. Active Family History Medical History Relation Name Comments Self-Injury Brother 1 Suicide Attempts Brother 1 Heart Disease Brother 2 Diabetes Brother 3 Hypertension Brother 3 Heart Disease Father Skin Cancer Father Diabetes Mother Heart Attack Mother Cancer Sister 1 Stroke Sister 2 Diabetes Sister 3 Hypertension Sister 3 Relation Name Status Comments Brother 1 Brother 2 Alive Brother 3 Alive Father Mother Sister 1 Sister 2 Alive Sister 3 Alive Social History Tobacco Use Types Packs/Day Years Used Date Smoking Tobacco: Former Smokeless Tobacco: Never Alcohol Use Standard Drinks/Week Comments Yes 0 (1 standard drink = 0.6 oz pur e alcohol) socially Comments Unknown Sex and Gender Information Value Date Recorded Sex Assigned at Not on file Legal Sex 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 Gender Identity Not on file Sexual Orientation Not on file Plan of Treatment Health Maintenance Due Date Last Done Comments Hepatitis C Virus (HCV) Screening 1960 Cologuard 09/26/2004 Immunochemical Fecal Occult Blood 09/26/2004 Pneumococcal Immunization (5 0+ years) (1 of 1 - PCV) 09/26/2009 Zoster Immunization (1 of 2) 09/26/2009 Colonoscopy 12/23/2022 12/23/2017 Colorectal Cancer Screening 12/23/2022 Influenza Immunization (#1) 2024 SARS-COV-2 Immunization (2 - season) 2024 06/23/2021 Respiratory Syncytial Virus (RSV) Immunization (Adult) (1 - 1-dose 75+ series) 09/26/2034 DTaP/Tdap/Td Immunization Discontinued 10/24/2018 TdaP Immunization Completed 10/24/2018 Hepatitis B Immunization Aged Out No longer eligible based on patient's age to complete this topic Human Papillomavirus (HPV) Immunization Aged Out No longer eligible b ased on patient's age to complete this topic Meningococcal Immunization (ACWY) Aged Out No longer eligible based on patient's age to complete this topic Rotavirus Immunization Aged Out No lo nger eligible based on patient's age to complete this topic Procedures Procedure Name Priority Date/Time Associated Diagnosis Comments COLONOSCOPY Routine 12/23/2017 from Last 3 Months or Most Recently Relevant to Health Maintenance Results * COLONOSCOPY (12/23/2017) Bob Montero DO PROCEDURE/MINOR SURGICAL ORDERA BLES Final Result from Last 3 Months or Most Recently Relevant to Health Maintenance Care Teams Sewage Disposal Engineer Relationship Specialty Start Date End Date Domenico Chen MD [address] [place] [address] [place] [id number] PCP - General Family Medicine 05/11/16
--- OUTSIDE RECORDS SUMMARY | 2024-12-29 07:40 | XMS_ITS | Clinical Summary ---
Author Organization [facility] Address [address] [place] [id number] Care Team Providers Care Community Health Program Coordinator Name Role Phone Domenico Chen MD Primary Care Provider [phone] [phone] Allergies No known active allergies Social History Tobacco Use Types Packs/Day Years Used Date Smoking Tobacco: Never Assessed Personal Safety Answer Date Recorded Getting School Help Needed Not on file 06/01 Comments Unknown Sex and Gender Information Value Date Recorded Sex Assigned at Not on file Legal Sex Female 11:14 AM PSYCHIATRIC SOCIAL WORKER Gender Identity Not on file Sexual Orientation Not on file Plan of Treatment Not on file Insurance [facility] HMO Care Teams Community Health Program Coordinator Relationship Specialty Start Date End Date Domenico Chen MD PCP - General Family Medicine 03/30/19
== END 2024-12-29 07:35 | disposition home or self-care (01) ==
PROVIDERS: PCP Family Medicine
DX: R06.09 Other forms of dyspnea (principal)
CPT/HCPCS: 78452; 93017; A9502; J2785

== ENCOUNTER 2025-01-22 10:09 | Outpatient (CLI) | payer MEDICARE, SELFPAY ==
--- NOTE | ~2025-01-22 | XR_ITS ---
XR_CERV2-3V_CR Indication: Radiculopathy, cervical region, pain x 6 months, no inj, Comparison: None Findings: The vertebral heights are intact. No fracture or subluxation. Moderate loss of disc height at C3-4, C4-5 C5-6 and C6-7. Soft tissues unremarkable Impression: No acute abnormality. Reviewed, dictated and finalized at location P. N PROFESSIONAL Impression: No acute abnormality.
--- NOTE | ~2025-01-22 | XR_ITS ---
XR lumbar spine 2-3V Indication: Radiculopathy, lumbar region, pain x 6 months Comparison: None Findings: Moderate loss of vertebral height throughout. No acute fracture or subluxation. There is a dextroconvex scoliosis. Moderate to severe loss of disc height throughout. Probable left renal calculus in the soft tissues 5 x 6 mm. Impression: No acute abnormality. Reviewed, dictated and finalized at location P. MING POOL MAINTENANCE Impression: No acute abnormality.
== END 2025-01-22 10:10 | disposition home or self-care (01) ==
LOC: GOSHIMG 10:09
PROVIDERS: PCP Family Medicine; Visit Provider Nurse Practitioner Family
DX: M54.12 Radiculopathy, cervical region (principal); M54.16 Radiculopathy, lumbar region
CPT/HCPCS: 72040; 72100

== ENCOUNTER 2025-02-16 07:43 | Outpatient (CLI) | payer MEDICARE, SELFPAY ==
--- NOTE | ~2025-02-16 | DEXA_ITS ---
Bone Density Report Name: STEVEN SUMMERS Age: 64 Sex: Female Ethnicity: White Date of : 1960 Indication: postmenopausal; screening for osteoporosis; Referring Provider: UMAIR HERNANDES Study: Bone densitometry was performed. Exam Date: February 16, 2025 Accession number: [id number] Bone Density: Region BMD T-score Z-score Classification AP Spine(L1-L4) 1.049 0.0 1.8 Normal Femoral Neck (Left) 0.653 -1.8 -0.2 Osteopenia Total Hip (Left) 0.861 -0.7 0.6 Normal Femoral Neck (Right) 0.690 -1.4 0.1 Osteopenia Total Hip (Right) 0.813 -1.1 0.2 Osteopenia Total Hip Mean 0.837 -0.9 0.4 Normal World Health Organization criteria for BMD impression classify patients as: Normal (T-score at or above -1.0), Osteopenia (T-score between -1.0 and -2.5), or Osteoporosis (T-score at or below -2.5). 10-year Fracture Risk(1): Major Osteoporotic Fracture 9.1% Hip Fracture 1.1% Reported Risk Factors: [place] (), Neck BMD=0.653, BMI=33.6 (1) FRAX(R) Version 3.08. Fracture probability calculated for an untreated patient. Fracture probability may be lower if the patient has received treatment. Previous Exams: Region Exam Age BMD T-score BMD Change BMD Change Date g/cm2 vs Baseline vs Previous Total Hip(Left) 02/16/2025 64 0.861 -0.7 -0.015 (-1.7%) -0.015 (-1.7%) 11/04/2017 57 0.876 -0.5 Total Hip(Right) 02/16/2025 64 0.813 -1.1 -0.030 (-3.6%) -0.030 (-3.6%) 11/04/2017 57 0.844 -0.8 *Denotes significance at 95% confidence level, LSC for Total Hip = 0.027 g/cm2 Clinical Information Provided by Patient: Patient maximum height was 64 Menopause Age: 45 No regular weight bearing exercise Onset of menses at age 12 Number of children 4 Impression: The patient has low bone mass, based on the Left Femoral Neck T-score. The patient has an estimated ten-year risk of hip fracture of 1.1% and an estimated ten-year risk of major fracture of 9.1%, based on the WHO FRAX algorithm. The BMD for the Total Hip(Right) decreased, changing by -3.6% since the last DXA exam. Discussion: BONE DENSITY IS LOW AT ONE OR MORE SKELETAL SITES. This patient's lowest T-score is low at one or more skeletal sites. It meets the World Health Organization's (WHO) criteria for ?low bone mass? (T-score between -1.0 and -2.5). The patient's 10-year risk of fracture as calculated by FRAX is less than the threshold where pharmacological therapy is recommended by the National Osteoporosis Foundation (NOF). However, all treatment decisions require clinical judgment and consideration of individual patient factors, including patient preferences, comorbidities, previous drug use, risk factors not captured in the FRAX model (e.g., frailty, falls, vitamin D deficiency, increased bone turnover, interval significant decline in bone density) and possible under or overestimation of fracture risk by FRAX. The patient should follow a healthful lifestyle (good nutrition with adequate calcium and vitamin D, and appropriate weight-bearing exercise). Follow-Up: Consider repeating this study in 2 years to reassess this patient's status, or sooner if there is some new clinical indication. Reported by: GIL on 02/16/2025 8:41:00 AM. Reviewed, dictated and finalized at location A.
--- NOTE | ~2025-02-16 | MM_ITS ---
EXAMINATION: MM screening charli BI w randolph HISTORY: Screening. TECHNIQUE: Craniocaudal and mediolateral oblique 3-D tomosynthesis images were obtained and synthetic 2-D images were generated. CAD analysis was submitted and interpreted. COMPARISON: 2021 and 2017 BREAST PARENCHYMAL COMPOSITION: Not Dense: The breasts are almost entirely fatty FINDINGS: No suspicious masses are seen. There are no suspicious calcifications. No unexplained architectural distortion is seen. There are no skin or nipple abnormalities identified. There is no adenopathy seen on the images submitted. IMPRESSION: No mammographic evidence to suggest malignancy is seen. The patient may return to screening mammography as per ACR guidelines. BI-RADS 1 - Negative. Reviewed, dictated and finalized at location B. [employer]
--- OUTSIDE RECORDS SUMMARY | 2025-02-16 07:51 | XMS_ITS | Clinical Summary ---
Author Organization [facility] Address [address] [address] Phone Care Team Providers Care Aircraft Accessories Mechanic Name Role Phone Domenico Chen MD Primary Care Provider +1- [phone] Allergies No known active allergies Medications buPROPion [...] on file Legal Sex Female 10:48 AM SUBSTANCE ABUSE TECHNICIAN Gender Identity Not on file Sexual Orientation [...] Recently Relevant to Health Maintenance Care Teams Aircraft Accessories Mechanic Relationship Specialty Start Date End Date Domenico Chen MD [address] [place] [address] [place] [id number] PCP - General Family Medicine 05/11/16
--- OUTSIDE RECORDS SUMMARY | 2025-02-16 07:51 | XMS_ITS | Clinical Summary ---
Author Organization [facility] Address [address] [place] [phone] Care Team Providers Care Faculty Neuropsychologist Name Role Phone Domenico Chen MD Primary Care Provider +1 -[phone] Allergies No known active allergies Social History Tobacco Use Types Packs/Day Years Used Date Smoking Tobacco: Never Assessed Personal Safety Answer Date Recorded Getting School Help Needed Not on file 06/01 Comments Unknown Sex and Gender Information Value Date Recorded Sex Assigned at Not on file Legal Sex Female 11:14 AM DIRECTOR ELECTRICAL ENGINEERING Gender Identity Not on file Sexual Orientation Not on file Plan of Treatment Not on file Insurance [facility] HMO Care Teams Faculty Neuropsychologist Relationship Specialty Start Date End Date Domenico Chen MD PCP - General Family Medicine 03/30/19
== END 2025-02-16 07:44 | disposition home or self-care (01) ==
PROVIDERS: PCP Family Medicine; Visit Provider Family Medicine
DX: Z12.31 Encounter for screening mammogram for malignant neoplasm of breast (principal); M85.88 Other specified disorders of bone density and structure, other site; M85.852 Other specified disorders of bone density and structure, left thigh; M85.851 Other specified disorders of bone density and structure, right thigh
CPT/HCPCS: 77063; 77067; 77080